=== PATIENT | male | born 1995 | race Caucasian/White ===

== ENCOUNTER → 2023-11-09 13:44 | Outpatient (REF) | payer OTHER, SELFPAY ==
[2023-11-16 04:08] LABS: HPV Genotype 16 Not Detected; HPV Genotype 18 Not Detected; HPV, High Risk Not Detected; HPV, High Risk Source Anal
== END ==
LOC: CLAB 13:44
PROVIDERS: ATTENDING PHYSICIAN Surgery
DX: K60.2 Anal fissure, unspecified (principal); Z72.51 High risk heterosexual behavior
CPT/HCPCS: 87624; 88112

== ENCOUNTER 2023-12-20 02:18 | Inpatient (IN) | payer OTHER, SELFPAY ==
[2023-12-19 23:12] VITALS: BP 122/90
[2023-12-19 23:19] VITALS: BP 122/90
[2023-12-19 23:27] VITALS: BMI 26.6
[2023-12-19 23:30] VITALS: BP 127/80
[2023-12-20] VITALS (10 sets, daily range): BP systolic 102–120; BP diastolic 57–73
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
[2023-12-20 00:39] LABS: Erythrocyte Sed Rate 51 mm/hour (0-20)
[2023-12-20 00:42] LABS: ALT (SGPT) 15 U/L (0-50); AST (SGOT) 19 U/L (17-59); Albumin 3.9 g/dl (3.5-5.0); Alkaline Phosphatase 142 U/L (38-126); Blood Urea Nitrogen 14 mg/dl (9-20); Calcium 9.1 mg/dl (8.4-10.2); Carbon Dioxide 28 mmol/L (22-30); Chloride 104 mmol/L (98-107); Estimated Creatinine Clearance > 125 ml/min; Glucose 76 mg/dl (70-99); Potassium 3.6 mmol/L (3.5-5.1); Sodium 136 mmol/L (135-145); Total Bilirubin 0.2 mg/dl (0.2-1.3); Total Protein 7.2 g/dl (6.3-8.2); eGFR > 60.00
[2023-12-20 00:49] LABS: % Basophils 0.6 % (0-2); % Eosinophils 6.6 % (0-6); % Immature Granulocytes 0.9 % (0-0.5); % Lymphocytes 35.3 % (20.5-51.1); % Monocytes 8.5 % (1.7-9.3); % Neutrophils 48.1 % (42.2-75.2); Absolute Basophils 0.1 10^3/uL (0-0.2); Absolute Eosinophils 0.6 10^3/uL (0-0.7); Absolute Immature Granulocytes 0.1 10^3/uL (0-0.05); Absolute Monocytes 0.7 10^3/uL (0.1-0.6); Absolute Neutrophils 4.1 10^3/uL (1.4-6.5); Hematocrit 29.4 % (39.0-52.0); Mean Corp Hgb Conc. 30.6 g/dL (33.0-37.0); Mean Platelet Volume 9.5 fL (7.4-10.4); Nucleated Red Blood Cells % 0 % (-); Platelet Count 511 10^3/uL (130-400); Red Blood Cell Count 3.92 10^6/uL (4.70-6.10); Red Cell Dist. Width 16.4 % (11.5-14.5); White Blood Cell Count 8.5 10^3/uL (4.8-10.8)
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
[2023-12-20] MEDS: ZOSYN 50 IV ×4 (01:33→20:42)
[2023-12-20 02:12] LABS: Lactic Acid 1.6 mmol/L (0.7-2.0)
[2023-12-20 03:59] LABS: Urine Albumin Negative (Neg - Trace); Urine Bilirubin Negative (Negative); Urine Character Clear (Clear); Urine Color Yellow; Urine Glucose Negative (Negative); Urine Ketone Negative (Negative); Urine Leukocyte Negative (Negative); Urine Nitrite Negative (Negative); Urine Occult Blood Negative (Negative); Urine Specific Gravity 1.015 (<1.030); Urine Urobilinogen Negative (Neg - 1+)
[2023-12-20 04:32] LABS: Amphetamines Negative (Negative); Barbiturates Negative (Negative); Benzodiazepines Negative (Negative); Buprenorphine Negative (Negative); Cocaine Negative (Negative); Marijuana Positive (Negative); Methadone Negative (Negative); Methamphetamines Negative (Negative); Opiates Positive (Negative); Phencyclidine Negative (Negative); Tricyclic Antidepressants Negative (Negative)
[2023-12-20 05:09] LABS: Fentanyl, Urine Positive (Negative)
--- NOTE | 2023-12-20 07:09 | PTCARENOTE ---
came onto 1:1 at 0645, pt allowed me to take morning vitals. I told the pt ill help order breakfast/lunch/dinner, pt shook their head and said 'okay, thank you'. call canales is in reach, will continue to monitor.
[2023-12-20] MEDS: LEXAPRO 10 MG PO ×2 (07:53→20:42)
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
--- NOTE | 2023-12-20 09:30 | WOUNDNOTE ---
Kymberly SUMNER (LOWER)
--- NOTE | 2023-12-20 09:44 | WOUNDNOTE ---
R 2ND TOE TIP
--- NOTE | 2023-12-20 09:44 | WOUNDNOTE ---
RLE/HEEL (POSTERIOR)
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
[2023-12-20 10:55] LABS: Iron 30 ug/dl (49-181)
[2023-12-20 11:04] LABS: Percent Saturation 7 % (20-50); Total Iron Binding Capacity 397 ug/dl (261-462)
[2023-12-20] MEDS: NICODERM TRANSDERMAL 14 MG TRANSDERM (11:21)
[2023-12-20 11:41] LABS: Ferritin 11.9 ng/ml (17.9-464.0)
[2023-12-20 12:12] LABS: Folate 3.9 ng/ml (2.76-20); Vitamin B12 187 pg/ml (239-931)
--- NOTE | 2023-12-20 13:03 | PTCARENOTE ---
pt arrived from the ED as a hold to 3w, pt arrived in a hospital bed on room air and medsurg, call canales is in reach will continue to monitor.
--- NOTE | 2023-12-20 13:06 | PTCARENOTE ---
1248 Pt received from ED.
--- NOTE | 2023-12-20 13:57 | PTCARENOTE ---
Pt took off his wound care and started to squeeze out fluid from his leg while saying 'it hurts', 'I want pain meds', and 'I want to leave'. Pt stop squeezing fluid from his leg calming him down, RN was notified. RN and I wrap up his wounds on his
lower right leg, while explaining to the pt why it is important to keep his wounds covered, pt was apologetic and understood. Pt is calm with call canales in reach, Will continue to monitor.
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
--- NOTE | 2023-12-20 15:37 | CM ---
Reviewed chart, Sent 302 paperwork to on license of [facility] in preparation for 303 hearing tomorrow. Provided patient's rights to him uner 302 and he expressed understanding. Will await hearing time.
Plan: Case management will continue to follow and assist with discharge planning. 303 hearing set for tomorrow.
[2023-12-20] MEDS: LOVENOX 40 MG SC (17:27)
[2023-12-20] MEDS: FLUSH (NSS) 2 FLUSH IV (20:42)
[2023-12-20] MEDS: ROXICODONE 5 MG PO (21:57)
[2023-12-20] MEDS: CATAPRES 0.100000000000000006 MG PO (21:57)
[2023-12-21] MEDS: FLUSH (NSS) 2 FLUSH IV (02:06)
[2023-12-21] MEDS: ZOSYN 50 IV ×2 (02:06→08:36)
[2023-12-21 07:00] VITALS: BP 102/53
[2023-12-21] MEDS: TYLENOL 650 MG PO (08:33)
[2023-12-21] MEDS: LEXAPRO 10 MG PO ×2 (08:34→21:36)
[2023-12-21] MEDS: NICODERM TRANSDERMAL 14 MG TRANSDERM (08:35)
--- NOTE | 2023-12-21 08:40 | CM ---
Placed a call to patient's mother to update that hearing time will be at 9:30am. She stated that she will meet in family room at 9:15. TT Dr. Cuello to update regarding time.
Plan: Case management will continue to follow and assist with discharge planning. 303 hearing at 9:30.
[2023-12-21 09:24] LABS: Hematocrit 27.6 % (39.0-52.0); Hemoglobin 8.1 g/dL (13.0-18.0); Mean Corp Hgb Conc. 29.3 g/dL (33.0-37.0); Mean Corpuscular Hgb 22.8 pg (27.0-31.0); Mean Corpuscular Volume 77.7 fL (80.0-94.0); Mean Platelet Volume 9.4 fL (7.4-10.4); Platelet Count 448 10^3/uL (130-400); Red Blood Cell Count 3.55 10^6/uL (4.70-6.10); Red Cell Dist. Width 16.6 % (11.5-14.5); White Blood Cell Count 6.9 10^3/uL (4.8-10.8)
[2023-12-21 09:40] LABS: Blood Urea Nitrogen 17 mg/dl (9-20); Calcium 9.2 mg/dl (8.4-10.2); Carbon Dioxide 29 mmol/L (22-30); Chloride 103 mmol/L (98-107); Estimated Creatinine Clearance > 125 ml/min; Glucose 124 mg/dl (70-99); Magnesium 1.9 mg/dl (1.6-2.3); Potassium 4.2 mmol/L (3.5-5.1); Sodium 139 mmol/L (135-145); eGFR > 60.00
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
[2023-12-21] MEDS: ROXICODONE 5 MG PO ×2 (11:24→17:03)
--- NOTE | 2023-12-21 11:34 | CM ---
Reviewed chart, 303 hearing complete and upheld. 303 on chart. Act 77 faxed to [facility].
Plan: Case management will continue to follow and assist with discharge planning. Psych placement when patient is medically stable.
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
[2023-12-21] MEDS: NON-FORMULARY ITEM 1.5 MG PO (12:23)
--- NOTE | 2023-12-21 13:14 | W.PN.ID1 ---
Date of Service
Date of Service: December 21, 2023
Today's Communication
CT of the R LE to assess for fluid collections
start cefazolin; stop zosyn
Assessment / Plan
Surgical Site Infection - RLE
Osteomyelitis - appears chronic
H/o S lugdunensis bacteremia here and OR culture previous with S lugdunesis as well by report
- await records
- blood cultures x2 in progress; note previous culture from blood with s lugdunensis
- initial wound culture - gram stain negative; repeat in progress
- CT to assess for fluid collections
- start cefazolin - tentatively plan 6 weeks of IV therapy followed by suppression
- follow clinically
Chief Complaint
-: Other (probable osteomyelitis)
Subjective / Review of Systems
afebrile
bp stable
without leukocytosis
cr stable
wound cultures x2 in progress
extensive picking of skin reported by psychiatrist Dr Cuello through the course of the hearing
Vital Signs / Physical Exam
Vital Signs
Vital Signs
Temp Pulse Resp BP Pulse Ox
98.1 F 82 18 102/53 96
12/21/23 07:00 12/21/23 07:00 12/21/23 07:00 12/21/23 07:00 12/21/23 12:28
Physical Exam
Constitutional: No Acute Distress
Cardiovascular: Regular Rate and S1/S2; Negative Murmur or Rub
Pulmonary: Clear and Symmetric; Negative Wheezes or Rales
Gastrointestinal: Soft, Non Tender, Non Distended and Normal Bowel Sounds
Skin: Warm and Dry; Negative Rash or Jaundice
Wound: Other (fistula clean, no erythema, warmth or purulent drainage; dressing in place on my arrival)
Objective Data
Lab Data
Lab Results
12/21/23 08:51
12/21/23 08:51
ESR 51 mm/hour (0-20) H 12/20/23 00:17
Estimated Creat Clear > 125 ml/min 12/21/23 08:51
Lactic Acid 1.6 mmol/L (0.7-2.0) 12/20/23 00:17
Lactic Acid Cancelled 12/20/23 00:17
Total Bilirubin 0.2 mg/dl (0.2-1.3) 12/20/23 00:17
AST 19 U/L (17-59) 12/20/23 00:17
ALT 15 U/L (0-50) 12/20/23 00:17
Alkaline Phosphatase 142 U/L (38-126) H 12/20/23 00:17
C-Reactive Protein 22.70 mg/L (0.0-10.00) H 12/20/23 00:17
Most recent labs reviewed.
Micro Results:
12/20/23 16:18 Wound Culture - Preliminary
Tibia Gram Stain - Preliminary
12/20/23 11:39 Wound Culture - Preliminary
Leg - Right Gram Stain - Preliminary
12/20/23 01:25 Blood Culture - Preliminary
Blood/Venous No Growth in 24 hours- Final report to follow
12/20/23 00:17 Blood Culture - Preliminary
Blood/Venous No Growth in 24 hours- Final report to follow
12/20/23 08:37 MRSA Screen - Pending
Nose
[2023-12-21] MEDS: FERRLECIT 110 MG IV (13:48)
[2023-12-21] MEDS: HYDROPHOR 1 APPLIC TOPICAL (13:49)
[2023-12-21] MEDS: ANCEF 10 IV ×2 (13:49→21:36)
[2023-12-21] MEDS: NICORETTE 4 MG PO ×2 (13:58→19:21)
[2023-12-21] MEDS: LYRICA 150 MG PO ×2 (14:28→21:36)
[2023-12-21 15:00] VITALS: BP 134/80
[2023-12-21] MEDS: LOVENOX SC ×2 (17:03→17:10)
[2023-12-21] MEDS: CATAPRES 0.100000000000000006 MG PO (21:36)
[2023-12-21] MEDS: MELATONIN 10 MG PO (21:36)
[2023-12-22] MEDS: ANCEF 10 IV (05:37)
[2023-12-22 06:19] LABS: Hematocrit 25.7 % (39.0-52.0); Hemoglobin 7.8 g/dL (13.0-18.0); Mean Corp Hgb Conc. 30.4 g/dL (33.0-37.0); Mean Corpuscular Hgb 22.6 pg (27.0-31.0); Mean Corpuscular Volume 74.5 fL (80.0-94.0); Mean Platelet Volume 9.1 fL (7.4-10.4); Platelet Count 430 10^3/uL (130-400); Red Blood Cell Count 3.45 10^6/uL (4.70-6.10); Red Cell Dist. Width 16.7 % (11.5-14.5); White Blood Cell Count 8.6 10^3/uL (4.8-10.8)
[2023-12-22 06:48] LABS: Blood Urea Nitrogen 16 mg/dl (9-20); Calcium 9.2 mg/dl (8.4-10.2); Carbon Dioxide 26 mmol/L (22-30); Chloride 107 mmol/L (98-107); Estimated Creatinine Clearance > 125 ml/min; Glucose 96 mg/dl (70-99); Potassium 4.1 mmol/L (3.5-5.1); Sodium 141 mmol/L (135-145); eGFR > 60.00
[2023-12-22 07:30] VITALS: BP 128/78
[2023-12-22] MEDS: NICODERM TRANSDERMAL 14 MG TRANSDERM (08:48)
[2023-12-22] MEDS: LYRICA 150 MG PO ×2 (08:50→20:55)
[2023-12-22] MEDS: LEXAPRO 10 MG PO ×2 (08:50→20:55)
[2023-12-22] MEDS: NON-FORMULARY ITEM 1.5 MG PO (08:50)
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
[2023-12-22 12:30] VITALS: BP 117/69; PULSE 79; O2SAT 97
--- NOTE | 2023-12-22 13:34 | W.PN.UPDATE ---
Update Note
Progress Note Update
patient was using old fentanyl patch at home given severity of pain. Discussed plan with Dr. Gaona. will continue given good effect and need to control pain to improve mobility. it is reordered.
--- NOTE | 2023-12-22 14:00 | PTCARENOTE ---
Patient found with 25mcg/hr fetanyl on patient's L arm. Fetanyl patch was not ordered, and was not listed in patient's home medication list. Pharmacy was called to verify prescriptions, Assigned MD was updated verbally that a patch was found,
asked RN to look for prescription in chart. Pharmacy searched patient's name in PDMP. Patient was not found in PDMP for fetanyl prescription per pharmacist. Order placed by pharmacist to remove Fetanyl patch. Fetanyl patch was removed and wasted
with two RN's, notified that a prescription was not found for fetanyl patch. MD responded that she will clarify with patient's mother. Shortly after removal of patch, the patient began screaming at RN stating 'What are you doing?, don't take my
fetanyl, they don't give me that here'. When patient was asked where the Fetanyl patch came from by two RN's at bedside, patient responded with 'my mom gives me it in secret'. Patient escalated in screaming and lunging forward while sitting up in
bed with 1:1 present, patient continued making statements such as 'Get me my Fetanyl you bitch', 'you just stole my fetanyl'. [facility] was called, notified of patient's behaviors. Security, RN processing supervisor, charge nurse, three PCT's and two
floor RN's outside of patient's room. Patient's mother came to visit, asked what was 'going on', Patient's mother updated of patient behavior and that there was a found Fetanyl patch. Patient's mother proceeded to introduce herself as '
Jimenez', 'the patient's physician', and stated 'he got it at home' 'I gave him the patch, I prescribed the patch to him'. Mother updated that a prescription was not found in PDMP. Dr. Meza called patient's mother at this time, patient's mother
excused herself to the nursing station to take the phone call. Patient's mother returned stating she spoke to , and she gave patient an 'old Fetanyl patch from 2020 they had at home'. Mother informed there was a di munoz called due to
aggressive behavior after patch removal. placed order for Fetanyl patch for pain control.
--- NOTE | 2023-12-22 14:36 | PHA.VAN.IN ---
Assessment
- Assessment
Renal Function: Appears similar to baseline
- Previous Dosing Experience
Previous Regimen: 1gm q8h
Date of Regimen: 03/2023
Provided Trough of: unknown
Provided AUC of: unknown
Patient's SCR is: Similar to previous dosing experience
Patient's weight is: Similar to previous dosing experience
AUC Dosing Plan
- Dosing Variables
Dosing Weight (kg): 79.4
Dosing CrCl (ml/min): 125
Vd coefficient (L/kg): 0.7
- Empiric Dosing
Initial / Loading Dose: 1000mg
Maintenance Regimen: 1000mg q8h
Estimated AUC (mcg*h/mL): 526
Estimated Peak (mcg*h/mL): 31.1
Estimated Trough (mcg/ml): 14.6
Estimated Half Life (H): 6.4
- Monitoring
No levels ordered at this time: consider at steady state
Pharmacokinetics Vancomycin I
- -
Patient Age: 28
Patient Sex: Male
Vancomycin Day #: 1
Indication: Skin And Soft Tissue
Requesting Provider: Clint
Height / Weight:
Height 5 ft 10 in
Actual Weight 79.4 kg
IBW in k
- Vital Signs / Lab Results
Temp Pulse Resp BP Pulse Ox
98.1 F 77 16 128/78 100
12/22/23 07:30 12/22/23 07:30 12/22/23 07:30 12/22/23 07:30 12/21/23 21:00
Lab Results - Hematology
12/20/23 12/21/23 12/22/23
00:17 08:51 06:04
WBC 8.5 6.9 8.6
Lab Results - Chemistry
12/20/23 12/21/23 12/22/23
00:17 08:51 06:04
BUN 14 17 16
Creatinine 0.7 0.7 0.7
Estimated Creat Clear > 125 > 125 > 125
Albumin 3.9
12/20/23 12/20/23
00:17 00:17
Lactic Acid 1.6 Cancelled
Lab Results - Urine
12/20/23
03:46
Urine Nitrite (Reflex) Negative
Leukocyte Esterase Rfl Negative
Microbiology Results
12/20/23 11:39 Wound Culture - Preliminary
Leg - Right Enterococcus species
Gram Stain - Preliminary
12/20/23 16:18 Wound Culture - Preliminary
Tibia Gram Stain - Preliminary
12/20/23 01:25 Blood Culture - Preliminary
Blood/Venous No Growth in 48 hours- Final report to follow
12/20/23 00:17 Blood Culture - Preliminary
Blood/Venous No Growth in 48 hours- Final report to follow
12/20/23 08:37 MRSA Screen - Final
Nose No Methicillin Resistant Staphylococcus aureus isolated.
[2023-12-22] MEDS: ANCEF IV (15:35)
[2023-12-22] MEDS: DURAGESIC 25 MCG/HR PATCH 1 PATCH TRANSDERM (15:42)
[2023-12-22] MEDS: FERRLECIT IV (15:46)
[2023-12-22] MEDS: VANCOCIN 200 IV (16:03)
--- NOTE | 2023-12-22 16:12 | W.PN.ID1 ---
Date of Service
Date of Service: December 22, 2023
Today's Communication
switch to vancomycin, continue to follow cultures
await ct
Assessment / Plan
Surgical Site Infection - RLE
Osteomyelitis - appears chronic
H/o S lugdunensis bacteremia here and OR culture previous with S lugdunesis as well by report
- blood cultures x2 in progress; note previous culture from blood with s lugdunensis
- wound culture with enterococcus
- switched to vancomycin. Narrow spectrum therapy preferable if possible given that patient will likely require suppression, however if there are other copathogens that may not be feasible
- await CT to assess for fluid collections
- start cefazolin - tentatively plan 6 weeks of IV therapy followed by suppression
- follow clinically
Chief Complaint
-: Other (probable osteomyelitis)
Subjective / Review of Systems
afebrile
bp stable
without leukocytosis
cr stable
wound culture also with enterococcus
code purple earlier today - patient upset about fentanyl patch - see nursing notes
Vital Signs / Physical Exam
Vital Signs
Vital Signs
Temp Pulse Resp BP Pulse Ox
98.1 F 77 16 128/78 100
12/22/23 07:30 12/22/23 07:30 12/22/23 07:30 12/22/23 07:30 12/21/23 21:00
Physical Exam
Constitutional: No Acute Distress
Cardiovascular: Regular Rate and S1/S2; Negative Murmur or Rub
Pulmonary: Clear and Symmetric; Negative Wheezes or Rales
Gastrointestinal: Soft, Non Tender, Non Distended and Normal Bowel Sounds
Extremities: Other (surgical site unchanged - no surrounding eythema, warmth or tenderness, minimal serosanguinous drainage)
Skin: Warm and Dry; Negative Rash or Jaundice
Objective Data
Lab Data
Lab Results
12/22/23 06:04
12/22/23 06:04
ESR 51 mm/hour (0-20) H 12/20/23 00:17
Estimated Creat Clear > 125 ml/min 12/22/23 06:04
Lactic Acid 1.6 mmol/L (0.7-2.0) 12/20/23 00:17
Lactic Acid Cancelled 12/20/23 00:17
Total Bilirubin 0.2 mg/dl (0.2-1.3) 12/20/23 00:17
AST 19 U/L (17-59) 12/20/23 00:17
ALT 15 U/L (0-50) 12/20/23 00:17
Alkaline Phosphatase 142 U/L (38-126) H 12/20/23 00:17
C-Reactive Protein 22.70 mg/L (0.0-10.00) H 12/20/23 00:17
Most recent labs reviewed.
Micro Results:
12/20/23 11:39 Wound Culture - Preliminary
Leg - Right Enterococcus species
Gram Stain - Preliminary
12/20/23 16:18 Wound Culture - Preliminary
Tibia Gram Stain - Preliminary
12/20/23 01:25 Blood Culture - Preliminary
Blood/Venous No Growth in 48 hours- Final report to follow
12/20/23 00:17 Blood Culture - Preliminary
Blood/Venous No Growth in 48 hours- Final report to follow
12/20/23 08:37 MRSA Screen - Final
Nose No Methicillin Resistant Staphylococcus aureus isolated.
[2023-12-22] MEDS: NICORETTE 4 MG PO ×2 (16:38→21:04)
[2023-12-22] MEDS: ROXICODONE 5 MG PO ×2 (16:38→21:05)
[2023-12-22] MEDS: HALDOL 5 MG PO (18:03)
[2023-12-22] MEDS: BENADRYL 50 MG PO (18:10)
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
[2023-12-22] MEDS: LOVENOX SC (18:52)
[2023-12-22] MEDS: MELATONIN 10 MG PO (20:55)
[2023-12-22] MEDS: DEPAKENE 500 MG PO (20:55)
[2023-12-22] MEDS: CATAPRES 0.100000000000000006 MG PO (20:58)
--- NOTE | 2023-12-22 22:30 | PTCARENOTE ---
Patient repeatedly requesting to have right second toe 'cleaned up' and requesting to have the toenail clipped as he states he has to cut the toenail every other day. Upon assessment of right second toe, small scabbing noted to tip of toe, no open
areas noted. Patient requesting to have 'pain cream applied' to the toe for comfort -- no orders present at this time. At this time, patient is refusing to have wound care performed to right leg/heel and states that it was done during the day and
wishes to be left alone. Call canales is within reach, will monitor.
[2023-12-23] MEDS: VANCOCIN 200 IV ×3 (01:06→14:38)
[2023-12-23] MEDS: KLONOPIN 0.5 MG PO (03:38)
[2023-12-23] MEDS: NICODERM TRANSDERMAL 14 MG TRANSDERM (08:27)
[2023-12-23] MEDS: DEPAKENE 250 MG PO (08:28)
[2023-12-23] MEDS: LYRICA 150 MG PO ×2 (08:28→20:57)
[2023-12-23] MEDS: LEXAPRO 10 MG PO ×2 (08:28→20:56)
[2023-12-23] MEDS: NON-FORMULARY ITEM 1.5 MG PO (08:29)
[2023-12-23] MEDS: NICORETTE 4 MG PO ×2 (08:32→18:38)
--- NOTE | 2023-12-23 08:33 | PHA.VAN.FU ---
Vancomycin Assessment / Plan
- Assessment
Renal Function: Stable
WBC's are: WNL
In the past 24 hrs, patient has been: Afebrile
- Dosing Plan
Continue: 1000MG Q8H
ADJUSTED Q8 TIMES, MISTAKENLY HAD ON STND Q8 TIMES CHANGED TO Q8H 0600,1400,2200
- Monitoring Plan
Peak Level: 12/23 0030
Trough Level: 12/23 0530
- Follow Up
Pharmacy will continue to follow.
Vancomycin Follow UP
- -
Patient Age: 28
Patient Sex: Male
Vancomycin Day #: 2
Indication: Skin And Soft Tissue
Requesting Provider: Clint
Height / Weight:
Height 5 ft 10 in
Actual Weight 79.4 kg
IBW in k
- Vital Signs / Lab Results
Temp Pulse Resp BP Pulse Ox
98.1 F 77 16 128/78 97
12/22/23 07:30 12/22/23 07:30 12/22/23 07:30 12/22/23 07:30 12/22/23 19:45
Lab Results - Hematology
12/21/23 12/22/23
08:51 06:04
WBC 6.9 8.6
Lab Results - Chemistry
12/21/23 12/22/23
08:51 06:04
BUN 17 16
Creatinine 0.7 0.7
Estimated Creat Clear > 125 > 125
Microbiology Results
12/20/23 01:25 Blood Culture - Preliminary
Blood/Venous No Growth in 72 hours- Final report to follow
12/20/23 00:17 Blood Culture - Preliminary
Blood/Venous No Growth in 72 hours- Final report to follow
12/20/23 11:39 Wound Culture - Preliminary
Leg - Right Enterococcus species
Gram Stain - Preliminary
12/20/23 16:18 Wound Culture - Preliminary
Tibia Gram Stain - Preliminary
12/20/23 08:37 MRSA Screen - Final
Nose No Methicillin Resistant Staphylococcus aureus isolated.
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
[2023-12-23] MEDS: ROXICODONE 5 MG PO ×2 (09:53→14:45)
[2023-12-23] MEDS: NICODERM TRANSDERMAL 21 MG TRANSDERM (09:53)
[2023-12-23] MEDS: HYDROPHOR 1 APPLIC TOPICAL (09:53)
[2023-12-23] MEDS: FERRLECIT IV (13:06)
--- NOTE | 2023-12-23 13:16 | W.PN.ID1 ---
Date of Service
Date of Service: December 23, 2023
Assessment / Plan
Surgical Site Infection - RLE
Osteomyelitis - appears chronic
H/o S lugdunensis bacteremia here and OR culture previous with S lugdunesis as well by report
- blood cultures x2 in progress; note previous culture from blood with s lugdunensis
- wound culture with enterococcus
- switched to vancomycin. Narrow spectrum therapy preferable if possible given that patient will likely require suppression, however if there are other copathogens that may not be feasible
- await CT to assess for fluid collections
- start cefazolin - tentatively plan 6 weeks of IV therapy followed by suppression
- follow clinically
Chief Complaint
-: Other (probable osteomyelitis)
Vital Signs / Physical Exam
Vital Signs
Vital Signs
Temp Pulse Resp BP Pulse Ox
98.1 F 77 16 128/78 97
12/22/23 07:30 12/22/23 07:30 12/22/23 07:30 12/22/23 07:30 12/22/23 19:45
Objective Data
Lab Data
Lab Results
12/22/23 06:04
12/22/23 06:04
ESR 51 mm/hour (0-20) H 12/20/23 00:17
Estimated Creat Clear > 125 ml/min 12/22/23 06:04
Lactic Acid 1.6 mmol/L (0.7-2.0) 12/20/23 00:17
Lactic Acid Cancelled 12/20/23 00:17
Total Bilirubin 0.2 mg/dl (0.2-1.3) 12/20/23 00:17
AST 19 U/L (17-59) 12/20/23 00:17
ALT 15 U/L (0-50) 12/20/23 00:17
Alkaline Phosphatase 142 U/L (38-126) H 12/20/23 00:17
C-Reactive Protein 22.70 mg/L (0.0-10.00) H 12/20/23 00:17
Most recent labs reviewed.
Micro Results:
12/20/23 16:18 Wound Culture - Final
Tibia Gram Stain - Final
12/20/23 11:39 Wound Culture - Final
Leg - Right Enterococcus faecalis
Gram Stain - Final
12/20/23 01:25 Blood Culture - Preliminary
Blood/Venous No Growth in 72 hours- Final report to follow
12/20/23 00:17 Blood Culture - Preliminary
Blood/Venous No Growth in 72 hours- Final report to follow
12/20/23 08:37 MRSA Screen - Final
Nose No Methicillin Resistant Staphylococcus aureus isolated.
[2023-12-23 15:00] VITALS: BP 102/57
[2023-12-23] MEDS: LOVENOX SC (17:10)
--- NOTE | 2023-12-23 17:39 | PTCARENOTE ---
Pt is alert and oriented x3 today. Complains of pain in his R leg. PRN pain medicine given per NOV. Tolerates diet well. Pt is an assist x1 OOB with the walker. Pt has been mostly cooperative and calm today. No issues with behavior. Pt did allow
this RN to do his wound care. 1:1 maintained for patient safety. VSS. Call canales is within reach.
--- NOTE | 2023-12-23 18:12 | VATNOTE ---
IV in left arm removed at patient request. Patient refusing new IV at this time, and is cursing at this RN. PCN made aware that no new IV placed.
--- NOTE | 2023-12-23 19:22 | PTCARENOTE ---
RN was notified by PCT who was the 1:1 with the patient that she witnessed the patient making himself vomit in the bathroom. PCT states the patient did it 3 times. When this RN asked the patient why he did that, he said that he didn't make himself
throw up he felt sick. [facility] nurse made aware of this situation.
--- NOTE | 2023-12-23 19:26 | W.PN.UPDATE ---
Update Note
Progress Note Update
Pt seen & evaluated at bedside, mother not present today. Visible wounds onhis face from picking. Describes compulsive need to pick due to feeling like he's itchy and feeling unable to stop until feels relief (described as physical feeling of
tension with sense of relief afterward). Describes also tapping when anxious and some obsessive nature to thoughts. Pt is at times calm and cooperative, however intermittently becomes agitated and at times paranoid - will start yelling or accuse
myself or others of wantign to harm him. At one point staff came due to his complaint of IV line being itchy and wanting a new one placed, however was preoccupied with IV being placed on inside of wrist because the veing there was 'screaming to have
an IV put in...look how big it is'. Was explained why this is not a typical place for IV and offered several other options, however became agitated and angry, posturing verbally at staff and would not agree to any other placement (IV was
subsequently lewft in place).
Throughout discussion makes multiple references to not feeling safe at home, but when questioned about this says this is because his parents 'keep calling the foreign policy officer on me' or 'calling crisis on me', is unable to identify why this is done and becomes
agitated if any attempt is made to question their feelings of safety (has been aggressive to parents) or of their having concern for him. At times is noted to be paranoid, as well as some persecutory and odd delusions pertaining to events in the
past.
Attempted to discuss with him obsessional/compulsive component to his skin picking, as he did acknowledge that he feels better pain medellin now because his wounds are being cleaned and cared for. Explained that this can require higher doses of SSRI to
manage, including up to 40mg for lexapro - attempted to discuss option of increasing lexapro dose a bit as he does say it has helped him overall. He was not agreeable to this however and became angry again.
Continue current regimen, no changes today
would monitor LFTs and depakote level once closer to end dose
on 303 as of 12/20, up to 20 days
[2023-12-23] MEDS: CATAPRES 0.100000000000000006 MG PO (20:59)
[2023-12-23] MEDS: MELATONIN 10 MG PO (20:59)
[2023-12-23] MEDS: DEPAKENE 500 MG PO (20:59)
--- NOTE | 2023-12-23 21:54 | PTCARENOTE ---
Addendum entered by Kimberly Anne RN 12/23/23 22:24:
Pharmacy made aware of pt's refusal. Lab draws are ordered tonight and tomorrow AM for Vanco dosing.
Original Note:
Pt continues to refuse IV placement despite education regarding medication compliance and wound treatment. Pt verbalizes understanding, still refuses IV. Currently, pt has no IV and unable to administer IV Vancomycin. MARY Michael notified, plan
of care ongoing.
[2023-12-23] MEDS: VANCOCIN IV (22:33)
[2023-12-23 23:25] VITALS: BP 95/54
[2023-12-24] VITALS (7 sets, daily range): BP systolic 92–129; BP diastolic 44–84; PULSE 83; O2SAT 97
[2023-12-24] MEDS: ROXICODONE 5 MG PO ×4 (03:06→20:15)
[2023-12-24] MEDS: VANCOCIN IV (06:07)
[2023-12-24 06:20] LABS: Hematocrit 25.7 % (39.0-52.0); Hemoglobin 7.7 g/dL (13.0-18.0); Mean Corpuscular Hgb 22.6 pg (27.0-31.0); Mean Corpuscular Volume 75.4 fL (80.0-94.0); Mean Platelet Volume 9.2 fL (7.4-10.4); Platelet Count 436 10^3/uL (130-400); Red Blood Cell Count 3.41 10^6/uL (4.70-6.10); Red Cell Dist. Width 17.1 % (11.5-14.5); White Blood Cell Count 9.3 10^3/uL (4.8-10.8)
[2023-12-24 07:12] LABS: Blood Urea Nitrogen 11 mg/dl (9-20); Calcium 9.5 mg/dl (8.4-10.2); Carbon Dioxide 29 mmol/L (22-30); Chloride 103 mmol/L (98-107); Estimated Creatinine Clearance > 125 ml/min; Glucose 89 mg/dl (70-99); Potassium 4.2 mmol/L (3.5-5.1); Sodium 139 mmol/L (135-145); eGFR > 60.00
[2023-12-24] MEDS: DEPAKENE 250 MG PO (08:29)
[2023-12-24] MEDS: NICODERM TRANSDERMAL 21 MG TRANSDERM (08:29)
[2023-12-24] MEDS: LEXAPRO 10 MG PO ×2 (08:30→20:15)
[2023-12-24] MEDS: LYRICA 150 MG PO ×2 (08:30→20:15)
[2023-12-24] MEDS: NON-FORMULARY ITEM 1.5 MG PO (08:30)
[2023-12-24] MEDS: NICORETTE 4 MG PO ×3 (08:54→20:16)
[2023-12-24] MEDS: BENADRYL 50 MG PO ×3 (12:45→20:37)
[2023-12-24] MEDS: HALDOL 5 MG PO ×3 (12:45→20:36)
--- NOTE | 2023-12-24 13:11 | PTCARENOTE ---
Pt found yelling and screaming at a family member over the phone. Pt yelling 'come pick me up', 'you can't leave me here', 'everyone's ignoring me'. Pt complaining that his nurse hasn't been in the room all day. Patient made aware that this RN has
been in several times to administer AM meds@8:30, oxycodone 10mg @8:54, brought tissues per patient request @9:30, fresh ice water to him and administered haldol and benadryl@12:45. 1:1 maintained in room at all times.
--- NOTE | 2023-12-24 13:52 | CM ---
Addendum entered by MO Ravi 12/25/23 12:00:
Late entry-placed a return call to Amador to determine whether she is VN or what dept she is from. Amador stated that patient gets nursing PT/OT services.
Addendum entered by MO Ravi 12/24/23 16:54:
Received call (voice mail) from Amador at [facility]. She requested that she be notified of his discharge, when patient is stable for discharge.
Original Note:
Reviewed chart, both PT and OT are recommending SNF at discharge. May need to look into acute rehab as skilled may not be an option. Will discuss options when patient is closer to medically stable.
Plan: Case management will continue to follow and assist with discharge planning. Acute rehab vrs. home when cleared medically.
--- NOTE | 2023-12-24 14:09 | PHA.VAN.FU ---
Vancomycin Assessment / Plan
- Assessment
Renal Function: Stable
WBC's are: WNL
In the past 24 hrs, patient has been: Afebrile
Patient refused 12/22 22:00 and 12/23 0600 doses
- Dosing Plan
Continue: Vanc 1000mg Q8H
- Monitoring Plan
No level(s) ordered at this time: follow to see if patient consistently accepts doses
- Follow Up
Pharmacy will continue to follow.
Vancomycin Follow UP
- -
Patient Age: 28
Patient Sex: Male
Vancomycin Day #: 3
Indication: Skin And Soft Tissue
Requesting Provider: Clint
Pertinent Antimicrobial Allergies:
colistin - H/V
Height / Weight:
Height 5 ft 10 in
Actual Weight 79.4 kg
IBW in k
- Vital Signs / Lab Results
Temp Pulse Resp BP Pulse Ox
99.0 F 87 20 100/58 98
12/23/23 23:25 12/24/23 10:15 12/24/23 10:15 12/24/23 10:15 12/24/23 10:15
Lab Results - Hematology
12/22/23 12/24/23
06:04 06:03
WBC 8.6 9.3
Lab Results - Chemistry
12/22/23 12/24/23
06:04 06:03
BUN 16 11
Creatinine 0.7 0.6 L
Estimated Creat Clear > 125 > 125
Microbiology Results
12/20/23 11:39 Wound Culture - Final
Leg - Right Enterococcus faecalis
Gram Stain - Final
12/20/23 01:25 Blood Culture - Preliminary
Blood/Venous No Growth in 4 days- Final report to follow
12/20/23 00:17 Blood Culture - Preliminary
Blood/Venous No Growth in 4 days- Final report to follow
12/20/23 16:18 Wound Culture - Final
Tibia Gram Stain - Final
--- NOTE | 2023-12-24 14:27 | W.PN.UPDATE ---
Update Note
Progress Note Update
Pt seen, chart reviewed. Pt on 303 for up to 20 days of involuntary hospitalization, due to apparent psychosis/delusions and inability to care for self/ not following medical treatment for his chronic leg wound. Pt calm this morning, somewhat
slowed, answering questions, fairly cooperative. Pt states he is aware he needs IV antibiotics, although he refused IV placement. Pt states he just wants the IV in a different location, c/o his arm is injured/uncomfortable from previous IV's. Pt
shows no overt hallucinations, offers no delusions today. Pt taking Vraylar 1.5 mg QD, started 12/21/23. No EPS evident. Pt also taking Depakote started over the weekend when pt was more agitated/labile, received Haldol 5 mg x 1 for agitation. Pt
continues on outpatient meds- Lexapro, clonidine, melatonin.
Imp: Schizoaffective d/o, on 303 commitment
Rec: continue current psych meds, monitor response. Will review disposition needs when closer to being medically cleared.
will follow
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
[2023-12-24] MEDS: VANCOCIN 200 IV ×2 (14:52→22:47)
--- NOTE | 2023-12-24 15:19 | W.PN.ID1 ---
Date of Service
Date of Service: December 24, 2023
Today's Communication
continue vancomycin
patient agreed to PIV
Assessment / Plan
Surgical Site Infection - RLE
Osteomyelitis - appears chronic
H/o S lugdunensis bacteremia here and OR culture previous with S lugdunesis as well by report
- blood cultures x2 in progress; note previous culture from blood with s lugdunensis
- wound culture with enterococcus
- continue vancomycin. Narrow spectrum therapy preferable if possible given that patient will likely require suppression, however if there are other copathogens that may not be feasible
- CT did not show drainable fluid collection
- continue vancomycin - tentatively plan 6 weeks of IV therapy followed by suppression
- could eventually place a PICC line if patient is planned for discharge
- follow clinically
Chief Complaint
-: Other (probable osteomyelitis)
Subjective / Review of Systems
afebrile
bp stable
without leukocytosis
cr stable
missed yesterdays vancomycin
with discussion he has agree to replacement of PIV
Vital Signs / Physical Exam
Vital Signs
Vital Signs
Temp Pulse Resp BP Pulse Ox
99.0 F 87 20 100/58 98
12/23/23 23:25 12/24/23 10:15 12/24/23 10:15 12/24/23 10:15 12/24/23 10:15
Physical Exam
Constitutional: No Acute Distress and Chronically Ill
Cardiovascular: Regular Rate and S1/S2; Negative Murmur or Rub
Pulmonary: Clear and Symmetric; Negative Wheezes or Rales
Gastrointestinal: Soft, Non Tender, Non Distended and Normal Bowel Sounds
Extremities: Other (dressing clean, dry, intact; arms without evidence of phlebitis)
Skin: Warm and Dry; Negative Rash or Jaundice
Objective Data
Lab Data
Lab Results
12/24/23 06:03
12/24/23 06:03
ESR 51 mm/hour (0-20) H 12/20/23 00:17
Estimated Creat Clear > 125 ml/min 12/24/23 06:03
Lactic Acid 1.6 mmol/L (0.7-2.0) 12/20/23 00:17
Lactic Acid Cancelled 12/20/23 00:17
Total Bilirubin 0.2 mg/dl (0.2-1.3) 12/20/23 00:17
AST 19 U/L (17-59) 12/20/23 00:17
ALT 15 U/L (0-50) 12/20/23 00:17
Alkaline Phosphatase 142 U/L (38-126) H 12/20/23 00:17
C-Reactive Protein 22.70 mg/L (0.0-10.00) H 12/20/23 00:17
Most recent labs reviewed.
Micro Results:
12/20/23 11:39 Wound Culture - Final
Leg - Right Enterococcus faecalis
Gram Stain - Final
12/20/23 01:25 Blood Culture - Preliminary
Blood/Venous No Growth in 4 days- Final report to follow
12/20/23 00:17 Blood Culture - Preliminary
Blood/Venous No Growth in 4 days- Final report to follow
12/20/23 16:18 Wound Culture - Final
Tibia Gram Stain - Final
12/20/23 08:37 MRSA Screen - Final
Nose No Methicillin Resistant Staphylococcus aureus isolated.
Care Review
Plan reviewed with: Physician (Dr Toure - piv vs picc)
[2023-12-24] MEDS: FERRLECIT 110 MG IV (16:11)
[2023-12-24] MEDS: LOVENOX SC ×2 (16:21→16:26)
[2023-12-24] MEDS: TYLENOL 650 MG PO (18:28)
[2023-12-24] MEDS: DEPAKENE 500 MG PO (20:37)
[2023-12-24] MEDS: MELATONIN 10 MG PO (20:37)
[2023-12-24] MEDS: KLONOPIN 0.5 MG PO (20:37)
--- NOTE | 2023-12-24 21:23 | PTCARENOTE ---
During change of shift rounds, Fentanyl patch verified on pt's right upper arm with day shift RN. Pt questioned when he was receiving another Fentanyl patch because 'it works faster for him than everyone else.' Informed pt that it wasn't occurring
until tomorrow afternoon and reassured pt that he still has a patch on his body. Pt now screaming 'you guys can't even do math, you're all fucking idiots... I've had this one since Sunday, or , maybe even Sunday.' Pt hitting his bed,
yelling 'you're all bitches, give me my fucking Fentanyl.' 1:1 present in room, safe environment maintained. Pt fell asleep shortly thereafter while pt's mother visited. When mother left, pt woke up and rang the call canales asking for PRN pain
medications. At approx 2019, with another RN present, administered PRN Oxycodone, pt stating he 'is not messing around,' he 'needs another patch.' Reminded pt that he has one on and he is receiving his pain medication pill currently. Pt removed all
his clothing, screaming 'I don't even get high from Fentanyl, you guys are the ones that get high from it, I'm actually in pain.' Two RNs watched pt take PRN Oxycodone.
At approx 2034, pt rang the call canales and asked if the doctor could 'write him another order for a second patch.' Pt assured, again, that he still has a patch on. MARY Blair notified. PRN agitation medications given (benadryl and haldol) with
evening medications.
1:1 remains in room, safe environment maintained. Plan of care ongoing.
[2023-12-24] MEDS: CATAPRES PO (21:39)
[2023-12-25 00:04] VITALS: BP 90/48
[2023-12-25] MEDS: VANCOCIN 200 IV ×3 (05:54→21:02)
[2023-12-25 07:18] VITALS: BP 94/49
[2023-12-25] MEDS: DEPAKENE PO ×2 (07:31→07:39)
[2023-12-25] MEDS: NICODERM TRANSDERMAL 21 MG TRANSDERM (07:31)
[2023-12-25] MEDS: LEXAPRO 10 MG PO ×2 (07:31→19:22)
[2023-12-25] MEDS: LYRICA 150 MG PO ×2 (07:31→19:22)
[2023-12-25] MEDS: NON-FORMULARY ITEM 1.5 MG PO (07:31)
[2023-12-25 08:59] LABS: Hematocrit 26.3 % (39.0-52.0); Hemoglobin 7.8 g/dL (13.0-18.0); Mean Corp Hgb Conc. 29.7 g/dL (33.0-37.0); Mean Corpuscular Hgb 22.8 pg (27.0-31.0); Mean Corpuscular Volume 76.9 fL (80.0-94.0); Mean Platelet Volume 9.6 fL (7.4-10.4); Platelet Count 447 10^3/uL (130-400); Red Blood Cell Count 3.42 10^6/uL (4.70-6.10); Red Cell Dist. Width 17.7 % (11.5-14.5); White Blood Cell Count 9.6 10^3/uL (4.8-10.8)
--- NOTE | 2023-12-25 09:13 | PHA.VAN.FU ---
Vancomycin Assessment / Plan
- Assessment
Renal Function: Stable
WBC's are: WNL
In the past 24 hrs, patient has been: Afebrile
- Dosing Plan
Continue: Vanc 1000mg Q8H
- Monitoring Plan
Peak Level: 12/25 00:30
Trough Level: 12/26 05:30
- Follow Up
Pharmacy will continue to follow.
Vancomycin Follow UP
- -
Patient Age: 28
Patient Sex: Male
Vancomycin Day #: 4
Indication: Skin And Soft Tissue
Requesting Provider: Clint
Pertinent Antimicrobial Allergies:
colistin - H/V
Height / Weight:
Height 5 ft 10 in
Actual Weight 79.4 kg
IBW in k
- Vital Signs / Lab Results
Temp Pulse Resp BP Pulse Ox
97.9 F 72 20 94/49 98
12/25/23 07:18 12/25/23 07:18 12/25/23 07:18 12/25/23 07:18 12/25/23 07:18
Lab Results - Hematology
12/24/23 12/25/23
06:03 08:28
WBC 9.3 9.6
Lab Results - Chemistry
12/24/23
06:03
BUN 11
Creatinine 0.6 L
Estimated Creat Clear > 125
Microbiology Results
12/20/23 01:25 Blood Culture - Final
Blood/Venous No Growth - Final Report
12/20/23 00:17 Blood Culture - Final
Blood/Venous No Growth - Final Report
12/20/23 11:39 Wound Culture - Final
Leg - Right Enterococcus faecalis
Gram Stain - Final
12/20/23 16:18 Wound Culture - Final
Tibia Gram Stain - Final
[2023-12-25 09:19] LABS: Blood Urea Nitrogen 12 mg/dl (9-20); Calcium 9.3 mg/dl (8.4-10.2); Carbon Dioxide 28 mmol/L (22-30); Chloride 104 mmol/L (98-107); Estimated Creatinine Clearance > 125 ml/min; Glucose 101 mg/dl (70-99); Sodium 140 mmol/L (135-145); eGFR > 60.00
[2023-12-25] MEDS: SENOKOT-S 1 TABLET PO (09:44)
[2023-12-25] MEDS: NON-FORMULARY ITEM 1 UNIT TOPICAL ×2 (09:44→19:24)
[2023-12-25] MEDS: ROXICODONE 5 MG PO ×3 (09:56→19:23)
[2023-12-25] MEDS: NICORETTE 4 MG PO ×3 (09:56→19:31)
--- NOTE | 2023-12-25 12:04 | CM ---
Reviewed chart, spoke by TT with Psychiatry and attending who confirmed that patient will need to be in a medical setting for ongoing IV ABX and compliance concerns.
CM mine supervisor updated
Plan: Case management will continue to follow and assist with discharge planning. Patient still requiring acute level of care.
[2023-12-25] MEDS: NON-FORMULARY ITEM 1 UNIT PO (12:09)
[2023-12-25] MEDS: TYLENOL 650 MG PO ×2 (12:11→21:01)
[2023-12-25] MEDS: HALDOL 5 MG PO (13:10)
[2023-12-25] MEDS: BENADRYL 50 MG PO (13:10)
[2023-12-25 13:17] VITALS: BP 120/70
[2023-12-25] MEDS: FERRLECIT IV (13:18)
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
--- NOTE | 2023-12-25 14:21 | W.PN.UPDATE ---
Update Note
Progress Note Update
Pt seen, resting in bed, alert, calm, cooperative, has IV in place. No signs of agitation, no signs of acute depression or overt psychosis. Pt is taking new med Vraylar 1.5 mg QD since 12/20, Depakene since 12/21; denies side effects, states it is
going well so far. Pt also taking prn Haldol 5 mg. No EPS evident. Pt asking about being able to go home, aware he needs 6 weeks of IV antibiotics. Pt remains on 303 commitment due to inability to care for self/not following medical treatment
due to his mental illness.
Imp: �Schizoaffective d/o, on 303 commitment for up to 20 days effective 12/20. Pt appears to be improving on current medications
Rec:� continue current psych meds, including new Vraylar, Depakene.� Need to monitor prn Haldol dosing; ordered Cogentin prn due to higher risk of EPS on Haldol
Continue on 303 commitment, although not likely to be accepted in any psych facility on IV antibiotics.
� � � will follow
[2023-12-25] MEDS: DURAGESIC 25 MCG/HR PATCH 1 PATCH TRANSDERM (14:30)
--- NOTE | 2023-12-25 14:54 | PN.CDI ---
CDI
- -
CDI:
Physician Documentation Request
Admit Date: 12/20/23 02:18
Dear Doctor Cruzito
Patient admitted with surgical site infection with drainage RLE.
Pt carries a diagnosis of Schizophrenia and is currently under section 303 of mental health act to 20 days inpatient treatment, per hospitalist progress note.
Please provide the specificity of the schizophrenia:
- Paranoid schizophrenia
- Undifferentiated (atypical) schizophrenia
- Disorganized schizophrenia
- Residual schizophrenia
- Schizophreniform disorder
- Simple schizophrenia
- Other, please specify
Use of terms such as suspected, likely, concern for, or probable (associated with a specific diagnosis that is being evaluated, monitored, or treated as if it exists) are acceptable and can be coded in the inpatient setting, when documented at the
time of discharge.
Thank you,
Talita Ziegler RN, BSN
CDI Specialist
tiger text
Please use your independent medical judgment in providing your response.
[2023-12-25 15:04] VITALS: BP 102/52
[2023-12-25] MEDS: LOVENOX SC (15:47)
--- NOTE | 2023-12-25 16:15 | W.PN.ID1 ---
Date of Service
Date of Service: December 25, 2023
Today's Communication
- continue vancomycin - tentatively plan 6 weeks of IV therapy followed by suppression - 12/21-01/31
Assessment / Plan
Surgical Site Infection - RLE
Osteomyelitis - appears chronic
H/o S lugdunensis bacteremia here and OR culture previous with S lugdunesis as well by report
- blood cultures x2 in progress; note previous culture from blood with s lugdunensis
- wound culture with enterococcus
- continue vancomycin. Narrow spectrum therapy preferable if possible given that patient will likely require suppression, however if there are other copathogens that may not be feasible
- CT did not show drainable fluid collection
- continue vancomycin - tentatively plan 6 weeks of IV therapy followed by suppression - 12/21-01/31
- could eventually place a PICC line if patient is planned for discharge; note he is currently committed and unlikely to find placement
- follow clinically
Chief Complaint
-: Other (probable osteomyelitis)
Subjective / Review of Systems
afebrile
bp stable
without leukocytosis
cr stable
tolerating vancomycin - accepting the meds
reports hes had no issues with home IV antibiotics in the past
line clean
Vital Signs / Physical Exam
Vital Signs
Vital Signs
Temp Pulse Resp BP Pulse Ox
98.2 F 74 16 102/52 96
12/25/23 15:04 12/25/23 15:04 12/25/23 15:04 12/25/23 15:04 12/25/23 15:04
Physical Exam
Constitutional: No Acute Distress
Cardiovascular: Regular Rate and S1/S2; Negative Murmur or Rub
Pulmonary: Clear and Symmetric; Negative Wheezes or Rales
Gastrointestinal: Soft, Non Tender, Non Distended and Normal Bowel Sounds
Skin: Warm and Dry; Negative Rash or Jaundice
Objective Data
Lab Data
Lab Results
12/25/23 08:28
12/25/23 08:28
ESR 51 mm/hour (0-20) H 12/20/23 00:17
Estimated Creat Clear > 125 ml/min 12/25/23 08:28
Lactic Acid 1.6 mmol/L (0.7-2.0) 12/20/23 00:17
Lactic Acid Cancelled 12/20/23 00:17
Total Bilirubin 0.2 mg/dl (0.2-1.3) 12/20/23 00:17
AST 19 U/L (17-59) 12/20/23 00:17
ALT 15 U/L (0-50) 12/20/23 00:17
Alkaline Phosphatase 142 U/L (38-126) H 12/20/23 00:17
C-Reactive Protein 22.70 mg/L (0.0-10.00) H 12/20/23 00:17
Most recent labs reviewed.
Micro Results:
12/20/23 01:25 Blood Culture - Final
Blood/Venous No Growth - Final Report
12/20/23 00:17 Blood Culture - Final
Blood/Venous No Growth - Final Report
12/20/23 11:39 Wound Culture - Final
Leg - Right Enterococcus faecalis
Gram Stain - Final
12/20/23 16:18 Wound Culture - Final
Tibia Gram Stain - Final
12/20/23 08:37 MRSA Screen - Final
Nose No Methicillin Resistant Staphylococcus aureus isolated.
Care Review
Plan reviewed with: Physician (Dr East - duration of comitment)
[2023-12-25] MEDS: SENOKOT-S PO ×2 (19:22→19:55)
[2023-12-25] MEDS: MELATONIN 10 MG PO (21:01)
[2023-12-25] MEDS: DEPAKENE 500 MG PO (21:02)
[2023-12-25] MEDS: CATAPRES 0.100000000000000006 MG PO (21:09)
--- NOTE | 2023-12-25 21:53 | VATNOTE ---
CALLED TO ASSESS PT IV SITE IN LUE. PT C/O SORENESS. SITE APPEARS WNL. FLUSHES WELL WITH N/C OF PAIN AND HAS A GOOD BR. PT INSISTED ON HAVING A NEW IV SITE INSERTED. PT ADAMANT TO WHERE IV SITE WAS TO BE REINSERTED. NEW ACCESS ESTABLISHED
DOCUMETNED AND [place] RESUMED. ATTEMTPED TO EDUCATE PT ON THE ADMINISTRATION OF MEDICATIONS IV AND WHERE HE INSISTED IV BE PLACED LESS THAN DESIRABLE BUT TO NO AVAIL. VAT TO MONITOR.
[2023-12-25 23:07] VITALS: BP 104/59
--- NOTE | 2023-12-26 00:12 | VATNOTE ---
PT REMOVED RECENTLY INSERTED IV ACCESS. REFUSES TO ALLOW THIS RN TO INSERT A NEW IV AT THE TIME OF HIS NEXT SCHEDULED LAB DRAW DESPITE BEING EXPLAINED TO IN DETAIL THE ADVANTAGES TO HIM. PT INSISTS THAT IV BE REINSERTED AT TIME OF NEXT SCHEDULED ABX
AT 0600. PT AGREES AT THIS TIME TO LAB DRAW. PCN AWARE OF MY CONVERSATION WITH PT. HE APPEARS ANGRY AT MY REFUSAL TO SUPPLY HIM WITH NAIL CLIPPERS OR SCISSIORS.
--- NOTE | 2023-12-26 00:15 | PTCARENOTE ---
Addendum entered by Johana Ronquillo RN 12/26/23 00:55:
Patient refused blood draw ( vanco peak).
Original Note:
Patient pulled out the IV and refused to have another IV until 0600. 1:1 supervision maintained.
[2023-12-26] MEDS: NICORETTE 4 MG PO ×6 (00:39→19:34)
[2023-12-26] MEDS: ROXICODONE 5 MG PO ×4 (00:40→19:37)
--- NOTE | 2023-12-26 03:28 | DOWNTIME ---
There was a [employer] Client Educational [employer]ician Downtime on 12/26/2023 from 0100 to 12/26/2023 at 0322. Downtime documentation of patient's care, including medication administrations, has been reconciled in the electronic record per guidelines. Refer to the
patient's paper chart under the miscellaneous tab to see printed paper medication records and downtime forms.
[2023-12-26] MEDS: VANCOCIN 200 IV (06:15)
[2023-12-26 06:23] LABS: Hematocrit 26.2 % (39.0-52.0); Hemoglobin 7.8 g/dL (13.0-18.0); Mean Corp Hgb Conc. 29.8 g/dL (33.0-37.0); Mean Corpuscular Hgb 22.9 pg (27.0-31.0); Mean Corpuscular Volume 77.1 fL (80.0-94.0); Mean Platelet Volume 9.5 fL (7.4-10.4); Platelet Count 467 10^3/uL (130-400); Red Cell Dist. Width 17.8 % (11.5-14.5); White Blood Cell Count 7.7 10^3/uL (4.8-10.8)
[2023-12-26 06:33] LABS: Vancomycin Trough 15.1 ug/ml (5-20)
[2023-12-26 06:45] LABS: ALT (SGPT) 13 U/L (0-50); AST (SGOT) 18 U/L (17-59); Albumin 3.7 g/dl (3.5-5.0); Alkaline Phosphatase 113 U/L (38-126); Blood Urea Nitrogen 10 mg/dl (9-20); Calcium 9.5 mg/dl (8.4-10.2); Carbon Dioxide 25 mmol/L (22-30); Chloride 109 mmol/L (98-107); Estimated Creatinine Clearance > 125 ml/min; Glucose 88 mg/dl (70-99); Potassium 4.2 mmol/L (3.5-5.1); Sodium 138 mmol/L (135-145); Total Bilirubin 0.2 mg/dl (0.2-1.3); Total Protein 6.8 g/dl (6.3-8.2); eGFR > 60.00
[2023-12-26] MEDS: NICODERM TRANSDERMAL 21 MG TRANSDERM (08:51)
[2023-12-26] MEDS: DEPAKENE 250 MG PO (08:52)
[2023-12-26] MEDS: LEXAPRO 10 MG PO ×2 (08:52→19:34)
[2023-12-26] MEDS: LYRICA 150 MG PO ×2 (08:53→19:34)
[2023-12-26] MEDS: SENOKOT-S PO ×3 (08:53→19:35)
[2023-12-26] MEDS: NON-FORMULARY ITEM 1 UNIT PO (08:53)
[2023-12-26] MEDS: NON-FORMULARY ITEM 1 UNIT TOPICAL ×2 (08:54→19:35)
[2023-12-26] MEDS: NON-FORMULARY ITEM 1.5 MG PO (08:54)
--- NOTE | 2023-12-26 09:20 | PHA.VAN.FU ---
Vancomycin Assessment / Plan
- Assessment
Renal Function: Stable
WBC's are: WNL
In the past 24 hrs, patient has been: Afebrile
- Assessment - Trough Based Monitoring
Trough Value: 15.1
Level Today was: Appropriate
Level Comments: drawn ~9H after 5th dose at Q8H regimen
Patient has refused some vancomycin doses but consistently received 5 doses in a row at Q8H interval
Patient refused peak draw last night
- Dosing Plan
Adjust Regimen to: Vanc 1250mg Q12H starting at 1800
Anticipate patient will have additional accumulation on Q8H regimen; however, unable to calculate AUC & half-life without peak
Will trial Q12H regimen, which also may help with compliance
- Monitoring Plan
No level(s) ordered at this time: consider repeat levels in next few days
- Follow Up
Pharmacy will continue to follow.
Vancomycin Follow UP
- -
Patient Age: 28
Patient Sex: Male
Vancomycin Day #: 5
Indication: Skin And Soft Tissue
Requesting Provider: Clint
Pertinent Antimicrobial Allergies:
colistin - H/V
Height / Weight:
Height 5 ft 10 in
Actual Weight 79.4 kg
IBW in k
- Vital Signs / Lab Results
Temp Pulse Resp BP Pulse Ox
97.5 F 75 18 104/59 96
12/25/23 23:07 12/25/23 23:07 12/25/23 23:07 12/25/23 23:07 12/25/23 23:07
Lab Results - Hematology
12/24/23 12/25/23 12/26/23
06:03 08:28 05:50
WBC 9.3 9.6 7.7
Lab Results - Chemistry
12/24/23 12/25/23 12/26/23
06:03 08:28 05:50
BUN 11 12 10
Creatinine 0.6 L 0.6 L 0.6 L
Estimated Creat Clear > 125 > 125 > 125
Albumin 3.7
Microbiology Results
12/20/23 01:25 Blood Culture - Final
Blood/Venous No Growth - Final Report
12/20/23 00:17 Blood Culture - Final
Blood/Venous No Growth - Final Report
12/20/23 11:39 Wound Culture - Final
Leg - Right Enterococcus faecalis
Gram Stain - Final
Therapeutic Drug Monitoring
Vancomycin Peak Cancelled 12/26/23 00:45
Vancomycin Trough 15.1 ug/ml (5-20) 12/26/23 05:50
[2023-12-26] MEDS: TYLENOL 650 MG PO ×2 (11:44→20:58)
--- NOTE | 2023-12-26 12:00 | WOUNDNOTE ---
R 2ND TOE
--- NOTE | 2023-12-26 12:00 | WOUNDNOTE ---
R 2ND TOE
--- NOTE | 2023-12-26 12:00 | WOUNDNOTE ---
RLE (ANTERIOR)(with photo flash)
--- NOTE | 2023-12-26 12:08 | CM ---
Reviewed chart, patient is a 303, hearing was last Sunday, the 20 of January. Met with patient and his mother who was at bedside to obtain information for assessment. Patient stated that he lives with his mother and father in a two story home with
three steps to enter. He uses an electric w/c but also has a walker. He has a commode.
He is independent with his dressing and bathing as well as other ADLs and personal care. His parents drive him to his appointments and do all the shopping. They do all the fryer operator, cooking, cleaning and laundry. Patient has had VN through
[facility] and selects for mica.
Patient uses [facility] pharmacy for all of his medications in [place]. His PCP is not listed but he does see Dr. Cuello and receives services from [facility]. Psych hx in Psychiatry notes.
Patient stated that he wants to go home and that he feels he is gaining weight and does not like the food. Emotional support provided.
Plan: Case management will continue to follow and assist with discharge planning. Patient in acute care on 303. Will need to stay until he is medically cleared and not in any danger of hurting himself by picking at his healing wounds.
--- NOTE | 2023-12-26 12:17 | WOUNDNOTE ---
R 2ND TOE
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
[2023-12-26] MEDS: KLONOPIN 0.5 MG PO (13:33)
[2023-12-26 15:30] VITALS: BP 130/78
--- NOTE | 2023-12-26 16:46 | W.PN.ID1 ---
Date of Service
Date of Service: December 26, 2023
Today's Communication
- continue vancomycin- plan 6 weeks of IV therapy followed by suppression - 12/21-01/31
- could eventually place a PICC line if patient is planned for discharge; note he is currently committed and unlikely to find placement
Assessment / Plan
Surgical Site Infection - RLE
Osteomyelitis - appears chronic
H/o S lugdunensis bacteremia here and OR culture previous with S lugdunesis as well by report
- blood cultures x2 finalized negative; note previous culture from blood with s lugdunensis
- wound culture with enterococcus - amp sensitive
- continue vancomycin- plan 6 weeks of IV therapy followed by suppression - 12/21-01/31
- could eventually place a PICC line if patient is planned for discharge; note he is currently committed and unlikely to find placement
- follow clinically
Chief Complaint
-: Other (probable osteomyelitis)
Subjective / Review of Systems
afebrile
bp stable
without leukocytosis
cr stable
Vital Signs / Physical Exam
Vital Signs
Vital Signs
Temp Pulse Resp BP Pulse Ox
98.3 F 78 16 130/78 99
12/26/23 15:30 12/26/23 15:30 12/26/23 15:30 12/26/23 15:30 12/26/23 15:30
Physical Exam
Constitutional: No Acute Distress
Cardiovascular: Regular Rate and S1/S2; Negative Murmur or Rub
Pulmonary: Clear and Symmetric; Negative Wheezes or Rales
Gastrointestinal: Soft, Non Tender, Non Distended and Normal Bowel Sounds
Extremities: Other (dressing clean, dry, intact)
Skin: Warm and Dry; Negative Rash or Jaundice
Objective Data
Lab Data
Lab Results
12/26/23 05:50
12/26/23 05:50
ESR 51 mm/hour (0-20) H 12/20/23 00:17
Estimated Creat Clear > 125 ml/min 12/26/23 05:50
Lactic Acid 1.6 mmol/L (0.7-2.0) 12/20/23 00:17
Lactic Acid Cancelled 12/20/23 00:17
Total Bilirubin 0.2 mg/dl (0.2-1.3) 12/26/23 05:50
AST 18 U/L (17-59) 12/26/23 05:50
ALT 13 U/L (0-50) 12/26/23 05:50
Alkaline Phosphatase 113 U/L (38-126) 12/26/23 05:50
C-Reactive Protein 22.70 mg/L (0.0-10.00) H 12/20/23 00:17
Most recent labs reviewed.
Micro Results:
12/20/23 01:25 Blood Culture - Final
Blood/Venous No Growth - Final Report
12/20/23 00:17 Blood Culture - Final
Blood/Venous No Growth - Final Report
12/20/23 11:39 Wound Culture - Final
Leg - Right Enterococcus faecalis
Gram Stain - Final
12/20/23 16:18 Wound Culture - Final
Tibia Gram Stain - Final
12/20/23 08:37 MRSA Screen - Final
Nose No Methicillin Resistant Staphylococcus aureus isolated.
[2023-12-26] MEDS: VANCOCIN 275 MG IV (17:14)
[2023-12-26] MEDS: LOVENOX SC (17:15)
[2023-12-26] MEDS: CATAPRES 0.100000000000000006 MG PO (20:58)
[2023-12-26] MEDS: MELATONIN 10 MG PO (20:58)
[2023-12-26] MEDS: DEPAKENE 500 MG PO (20:59)
[2023-12-26 23:25] VITALS: BP 92/53
[2023-12-27] MEDS: ROXICODONE 5 MG PO ×4 (00:54→20:35)
[2023-12-27 00:55] VITALS: BP 103/62
--- NOTE | 2023-12-27 01:19 | PTCARENOTE ---
Tech called this RN into pt's room because he locked himself in the bathroom. Bathroom abreu used to unlock door. This RN educated pt on why we keep the bathroom door open. Pt agreed to keep door open. Pt yelling that his wound care needs to be done.
Foams c/d/i w/o drainage. This RN stated to pt that wound care is to be done daily and was last done at 1200 12/25. Pt pulled off foams and demanded wound care be redone. Wound care done w/ gauze and kerlix, pt refused foams. PRN Kelsea given (see
mar). 1:1 remains in room, safe environment maintained. Continuing plan of care.
[2023-12-27] MEDS: NICORETTE 4 MG PO ×4 (04:04→18:32)
[2023-12-27] MEDS: KLONOPIN 0.5 MG PO ×2 (04:04→13:51)
[2023-12-27] MEDS: VANCOCIN 275 MG IV ×2 (06:02→17:02)
[2023-12-27 06:23] LABS: Hematocrit 26.7 % (39.0-52.0); Hemoglobin 8.1 g/dL (13.0-18.0); Mean Corp Hgb Conc. 30.3 g/dL (33.0-37.0); Mean Corpuscular Hgb 23.2 pg (27.0-31.0); Mean Corpuscular Volume 76.5 fL (80.0-94.0); Mean Platelet Volume 9.4 fL (7.4-10.4); Platelet Count 427 10^3/uL (130-400); Red Blood Cell Count 3.49 10^6/uL (4.70-6.10); Red Cell Dist. Width 18.5 % (11.5-14.5); White Blood Cell Count 7.9 10^3/uL (4.8-10.8)
[2023-12-27 06:31] LABS: Depakane 24.5 ug/ml (50.0-120.0)
[2023-12-27 06:54] LABS: ALT (SGPT) 12 U/L (0-50); AST (SGOT) 14 U/L (17-59); Albumin 3.7 g/dl (3.5-5.0); Alkaline Phosphatase 112 U/L (38-126); Blood Urea Nitrogen 9 mg/dl (9-20); Calcium 9.5 mg/dl (8.4-10.2); Carbon Dioxide 27 mmol/L (22-30); Chloride 103 mmol/L (98-107); Estimated Creatinine Clearance > 125 ml/min; Glucose 91 mg/dl (70-99); Potassium 4.3 mmol/L (3.5-5.1); Sodium 138 mmol/L (135-145); Total Bilirubin 0.1 mg/dl (0.2-1.3); Total Protein 6.8 g/dl (6.3-8.2); eGFR > 60.00
[2023-12-27 07:00] VITALS: BP 87/41
--- NOTE | 2023-12-27 08:30 | WOUNDNOTE ---
[facility] RN note: late yesterday called and left a message at [place] for Dr. Schuyler Jackson's office requesting a return call to confirm that patient is WBAT RLE. Received a call back this morning from Dr. Jackson's triage nurse Andria who did confirm
patient is WBAT RLE.
[2023-12-27] MEDS: LEXAPRO 10 MG PO ×2 (08:40→19:43)
[2023-12-27] MEDS: LYRICA 150 MG PO ×2 (08:40→19:43)
[2023-12-27] MEDS: NICODERM TRANSDERMAL 21 MG TRANSDERM (08:40)
[2023-12-27] MEDS: DEPAKENE 250 MG PO (08:40)
[2023-12-27] MEDS: NON-FORMULARY ITEM 1.5 MG PO (08:41)
[2023-12-27] MEDS: SENOKOT-S PO ×2 (08:41→21:51)
[2023-12-27] MEDS: NON-FORMULARY ITEM 2 UNIT PO (08:42)
[2023-12-27] MEDS: NON-FORMULARY ITEM 1 UNIT TOPICAL ×2 (08:42→19:40)
--- NOTE | 2023-12-27 09:01 | PHA.VAN.FU ---
Vancomycin Assessment / Plan
- Assessment
Renal Function: Stable
WBC's are: WNL
In the past 24 hrs, patient has been: Afebrile
- Dosing Plan
Continue: Vanc 1250mg Q12H
- Monitoring Plan
Peak Level: 12/26 21:00
Trough Level: 12/27 05:30
Monitoring Comments: if remains admitted, will obtain levels after 3rd dose of new regimen
previously patient refused peak - will re-attempt obtaining peak so can calculate half-life and patient-specific PK to better ensure optimal dosing and safety
- Follow Up
Pharmacy will continue to follow.
Vancomycin Follow UP
- -
Patient Age: 28
Patient Sex: Male
Vancomycin Day #: 6
Indication: Skin And Soft Tissue
Requesting Provider: Clint
Pertinent Antimicrobial Allergies:
colistin - H/V
Height / Weight:
Height 5 ft 10 in
Actual Weight 79.4 kg
IBW in k
- Vital Signs / Lab Results
Temp Pulse Resp BP Pulse Ox
97.8 F 73 18 87/41 97
12/27/23 07:00 12/27/23 07:00 12/27/23 07:00 12/27/23 07:00 12/27/23 07:00
Lab Results - Hematology
12/25/23 12/26/23 12/27/23
08: 05:50 06:06
WBC 9.6 7.7 7.9
Lab Results - Chemistry
12/25/23 12/26/23 12/27/23
08: 05:50 06:06
BUN 12 10 9
Creatinine 0.6 L 0.6 L 0.6 L
Estimated Creat Clear > 125 > 125 > 125
Albumin 3.7 3.7
Therapeutic Drug Monitoring
Vancomycin Peak Cancelled 12/26/23 00:45
Vancomycin Trough 15.1 ug/ml (5-20) 12/26/23 05:50
--- NOTE | 2023-12-27 10:07 | PN.CDI ---
CDI
- -
CDI:
Physician Documentation Request
Admit Date: 12/20/23 02:18
Dear Doctor Cuate,
Patient admitted with surgical site infection with drainage RLE.
Pt carries a diagnosis of Schizophrenia and is currently under section 303 of mental health act to 20 days inpatient treatment, per hospitalist progress note.
Please provide the specificity of the schizophrenia:
- Paranoid schizophrenia
- Undifferentiated (atypical) schizophrenia
- Disorganized schizophrenia
- Residual schizophrenia
- Schizophreniform disorder
- Simple schizophrenia
- Other, please specify
Use of terms such as suspected, likely, concern for, or probable (associated with a specific diagnosis that is being evaluated, monitored, or treated as if it exists) are acceptable and can be coded in the inpatient setting, when documented at the
time of discharge.
Thank you,
Talita Ziegler RN, BSN
CDI Specialist
tiger text
Please use your independent medical judgment in providing your response.
[2023-12-27 11:00] VITALS: BP 100/52
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
[2023-12-27 15:00] VITALS: BP 104/68
--- NOTE | 2023-12-27 15:00 | W.PN.UPDATE ---
Addendum entered and electronically signed by Amberly Cuello MD 12/27/23 15:11:
depakote level low have inc to 500 mg bid this may not be enough to get him to therapeutic but will follow
Original Note:
Update Note
Progress Note Update
patient seen chart reviewed. spoke with nursing. the patient had a difficult time last evening with collaborating w staff vis a vis his wound. today he has been much more cooperative and is saying all the right things. he says he thinks the
vraylar is helping with mood. he is hoping to go home on weekend and from the texts i have seen his mom is willing to consider him coming home. he is now saying he will cooperate with picc line if he can go home. we shall see. did not change his
meds at this point. no ill effect noted.
--- NOTE | 2023-12-27 16:03 | W.PN.ID1 ---
Date of Service
Date of Service: December 27, 2023
Today's Communication
Continue antibiotics.
Assessment / Plan
Surgical Site Infection - RLE
Osteomyelitis - appears chronic
Hx S. lugdunensis bacteremia here and OR culture previous with S lugdunesis as well by report
- blood cultures x2 finalized negative; note previous culture from blood with s lugdunensis
- wound culture with enterococcus - amp sensitive
- continue vancomycin- plan 6 weeks of IV therapy followed by suppression - 12/21-01/31
- Home IV antibiotic sheet placed on paper chart in anticipation of possible discharge.
- follow clinically
Chief Complaint
-: Other (probable osteomyelitis)
Subjective / Review of Systems
Review of Systems: No Fever and No Chills
Vital Signs / Physical Exam
Vital Signs
Vital Signs
Temp Pulse Resp BP Pulse Ox
97.8 F 73 18 100/52 97
12/27/23 07:00 12/27/23 07:00 12/27/23 07:00 12/27/23 11:00 12/27/23 07:00
Physical Exam
Constitutional: No Acute Distress, Comfortable and Non-toxic
Pulmonary: Non Labored
Skin: Negative Rash or Jaundice
Neurological: Awake and Alert
Psychological: Calm
Objective Data
Lab Data
Lab Results
12/27/23 06:06
12/27/23 06:06
ESR 51 mm/hour (0-20) H 12/20/23 00:17
Estimated Creat Clear > 125 ml/min 12/27/23 06:06
Lactic Acid 1.6 mmol/L (0.7-2.0) 12/20/23 00:17
Lactic Acid Cancelled 12/20/23 00:17
Total Bilirubin 0.1 mg/dl (0.2-1.3) L 12/27/23 06:06
AST 14 U/L (17-59) L 12/27/23 06:06
ALT 12 U/L (0-50) 12/27/23 06:06
Alkaline Phosphatase 112 U/L (38-126) 12/27/23 06:06
C-Reactive Protein 22.70 mg/L (0.0-10.00) H 12/20/23 00:17
Most recent labs reviewed.
Micro Results:
12/20/23 01:25 Blood Culture - Final
Blood/Venous No Growth - Final Report
12/20/23 00:17 Blood Culture - Final
Blood/Venous No Growth - Final Report
12/20/23 11:39 Wound Culture - Final
Leg - Right Enterococcus faecalis
Gram Stain - Final
12/20/23 16:18 Wound Culture - Final
Tibia Gram Stain - Final
12/20/23 08:37 MRSA Screen - Final
Nose No Methicillin Resistant Staphylococcus aureus isolated.
Care Review
Plan reviewed with: Physician (Hospitalist)
[2023-12-27] MEDS: LOVENOX SC (17:02)
[2023-12-27] MEDS: TYLENOL 650 MG PO (18:07)
[2023-12-27] MEDS: HALDOL 2 MG PO (19:44)
[2023-12-27] MEDS: BENADRYL 50 MG PO (19:44)
[2023-12-27 22:04] LABS: Vancomycin Peak 23.1 ug/ml (18-26)
[2023-12-27] MEDS: MELATONIN 10 MG PO (23:15)
[2023-12-27] MEDS: CATAPRES 0.100000000000000006 MG PO (23:16)
[2023-12-27 23:18] VITALS: BP 115/79
[2023-12-27] MEDS: DEPAKENE 500 MG PO (23:24)
--- NOTE | 2023-12-28 03:33 | PTCARENOTE ---
1999 patient very agitated and angry. Mother at , patient screaming and yelling at his mom. attempts made to redirect without success. Spoke with mom and inst her it was best to leave for the night as he is very agitated. He was calm prior to her
arrival. See mar for medication administration. Inst patient yelling and screaming needed to stop and I would not have a conversation with him unless he agreed to talk vs yell. Patient agreed and began to calm down, mom went home. Discussed
expectations and poc with patient. He verb understanding.
--- NOTE | 2023-12-28 03:39 | PTCARENOTE ---
Patient has remained calm and cooperative. Patient sleeping at this time
[2023-12-28 05:46] LABS: Hematocrit 28.1 % (39.0-52.0); Hemoglobin 8.3 g/dL (13.0-18.0); Mean Corp Hgb Conc. 29.5 g/dL (33.0-37.0); Mean Corpuscular Hgb 23.1 pg (27.0-31.0); Mean Corpuscular Volume 78.3 fL (80.0-94.0); Mean Platelet Volume 9.5 fL (7.4-10.4); Platelet Count 409 10^3/uL (130-400); Red Blood Cell Count 3.59 10^6/uL (4.70-6.10); Red Cell Dist. Width 18.6 % (11.5-14.5)
[2023-12-28 06:18] LABS: Vancomycin Trough 11.1 ug/ml (5-20)
[2023-12-28 06:22] LABS: ALT (SGPT) 13 U/L (0-50); AST (SGOT) 14 U/L (17-59); Albumin 3.8 g/dl (3.5-5.0); Alkaline Phosphatase 116 U/L (38-126); Blood Urea Nitrogen 14 mg/dl (9-20); Calcium 9.6 mg/dl (8.4-10.2); Carbon Dioxide 27 mmol/L (22-30); Chloride 103 mmol/L (98-107); Estimated Creatinine Clearance > 125 ml/min; Glucose 89 mg/dl (70-99); Potassium 4.6 mmol/L (3.5-5.1); Sodium 141 mmol/L (135-145); Total Bilirubin 0.2 mg/dl (0.2-1.3); Total Protein 6.9 g/dl (6.3-8.2); eGFR > 60.00
[2023-12-28] MEDS: VANCOCIN 275 MG IV ×2 (06:28→20:12)
[2023-12-28 08:00] VITALS: BP 93/48
--- NOTE | 2023-12-28 08:09 | PHA.VAN.FU ---
Vancomycin Assessment / Plan
- Assessment
Renal Function: Stable
WBC's are: Stable
In the past 24 hrs, patient has been: Afebrile
- Assessment - Therapeutic Drug Monitoring
Extrapolated Cmax (mcg/mL): 29.8
Peak level was drawn: Appropriately
Extrapolated Cmin (mcg/mL): 11.6
Trough Drawn: Appropriately
Levels were drawn: At steady state
Calculated AUC (mcg*h/mL): 467
Calculated ke: 0.0894
Calculated half life (H): 7.8
Calculated Vd (L): 59.76
Calculated Vanc CL (ml/min): 89.002
- Dosing Plan
Continue: vancomycin 1250 mg q12h
- Monitoring Plan
Level(s) appropriate: Recheck trough at minimum of weekly intervals, Repeat sooner for changes in renal function or clinical status
- Follow Up
Pharmacy will continue to follow.
Vancomycin Follow UP
- -
Patient Age: 28
Patient Sex: Male
Vancomycin Day #: 7
Indication: Skin And Soft Tissue
Requesting Provider: Clint
Pertinent Antimicrobial Allergies:
colistin - H/V
Height / Weight:
Height 5 ft 10 in
Actual Weight 79.4 kg
IBW in k
- Vital Signs / Lab Results
Temp Pulse Resp BP Pulse Ox
98.1 F 81 18 115/79 94
12/27/23 23:18 12/27/23 23:18 12/27/23 23:18 12/27/23 23:18 12/27/23 23:18
Lab Results - Hematology
12/25/23 12/26/23 12/27/23
08: 05:50 06:06
WBC 9.6 7.7 7.9
12/28/23
05:34
WBC 7.0
Lab Results - Chemistry
12/25/23 12/26/23 12/27/23
08:28 05:50 06:06
BUN 12 10 9
Creatinine 0.6 L 0.6 L 0.6 L
Estimated Creat Clear > 125 > 125 > 125
Albumin 3.7 3.7
12/28/23
05:34
BUN 14
Creatinine 0.6 L
Estimated Creat Clear > 125
Albumin 3.8
Therapeutic Drug Monitoring
Vancomycin Peak 23.1 ug/ml (18-26) 12/27/23 21:22
Vancomycin Trough 11.1 ug/ml (5-20) 12/28/23 05:34
[2023-12-28 08:20] VITALS: BP 93/48
[2023-12-28] MEDS: NON-FORMULARY ITEM 1.5 MG PO (08:47)
[2023-12-28] MEDS: DEPAKENE 500 MG PO ×2 (08:48→22:04)
[2023-12-28] MEDS: NICODERM TRANSDERMAL 21 MG TRANSDERM (08:49)
[2023-12-28] MEDS: LEXAPRO 10 MG PO (08:50)
[2023-12-28] MEDS: LYRICA 150 MG PO ×2 (08:51→19:46)
[2023-12-28] MEDS: NON-FORMULARY ITEM 1 UNIT TOPICAL ×2 (08:52→22:00)
[2023-12-28] MEDS: NON-FORMULARY ITEM 1 UNIT PO (08:52)
[2023-12-28] MEDS: SENOKOT-S 1 TABLET PO (08:53)
[2023-12-28] MEDS: KLONOPIN 0.5 MG PO ×2 (09:51→17:55)
[2023-12-28] MEDS: ROXICODONE 5 MG PO ×3 (09:51→22:03)
[2023-12-28] MEDS: NICORETTE 4 MG PO ×3 (09:52→19:46)
[2023-12-28] MEDS: BENADRYL 50 MG PO (10:06)
[2023-12-28] MEDS: HALDOL 2 MG PO (10:07)
--- NOTE | 2023-12-28 11:43 | CM ---
Addendum entered by MO Ravi 12/28/23 12:21:
Patient called 911. retail loss prevention officer came to his room. CM updated him that he is on a 303 hold. Officer appreciated the information, spoke with patient and left without incident.
Original Note:
Reviewed chart, spoke with Psychiatry who stated that she is not planning on discharging patient until he can stay calm for close to a week. Patient has been noted to be agitated, yelling at his mother and staff.
Plan: Case management will continue to follow and assist with discharge planning. 303 being upheld.
--- NOTE | 2023-12-28 11:54 | W.PN.ID1 ---
Date of Service
Date of Service: December 28, 2023
Today's Communication
Continue antibiotics.
Assessment / Plan
Surgical Site Infection - RLE
Osteomyelitis right lower extremity - appears chronic
Hx S. lugdunensis bacteremia here and OR culture previous with S lugdunesis as well by report
- blood cultures x2 finalized negative; note previous culture from blood with s lugdunensis
- wound culture with enterococcus - amp sensitive
- continue vancomycin - plan 6 weeks of IV therapy followed by suppression - 12/21-01/31
- Home IV antibiotic sheet placed on paper chart in anticipation of possible discharge. Okay for PICC line from I.D standpoint.
- Patient to follow in the outpatient setting with Dr. Jaramillo after discharge.
����������������������������������������������������������
Chief Complaint
-: Other (Suspected osteomyelitis right lower extremity)
Subjective / Review of Systems
Review of Systems: No Fever and No Chills
Vital Signs / Physical Exam
Vital Signs
Vital Signs
Temp Pulse Resp BP Pulse Ox
98.0 F 61 18 93/48 99
12/28/23 08:00 12/28/23 08:00 12/28/23 08:00 12/28/23 08:00 12/28/23 08:00
Physical Exam
Constitutional: No Acute Distress, Comfortable and Non-toxic
Eyes: Sclera Anicteric
Pulmonary: Non Labored
Extremities: Edema (Right lower extremity)
Neurological: Awake and Alert
Psychological: Calm
Objective Data
Lab Data
Lab Results
12/28/23 05:34
12/28/23 05:34
ESR 51 mm/hour (0-20) H 12/20/23 00:17
Estimated Creat Clear > 125 ml/min 12/28/23 05:34
Lactic Acid 1.6 mmol/L (0.7-2.0) 12/20/23 00:17
Lactic Acid Cancelled 12/20/23 00:17
Total Bilirubin 0.2 mg/dl (0.2-1.3) 12/28/23 05:34
AST 14 U/L (17-59) L 12/28/23 05:34
ALT 13 U/L (0-50) 12/28/23 05:34
Alkaline Phosphatase 116 U/L (38-126) 12/28/23 05:34
C-Reactive Protein 22.70 mg/L (0.0-10.00) H 12/20/23 00:17
Most recent labs reviewed.
Micro Results:
12/20/23 01:25 Blood Culture - Final
Blood/Venous No Growth - Final Report
12/20/23 00:17 Blood Culture - Final
Blood/Venous No Growth - Final Report
12/20/23 11:39 Wound Culture - Final
Leg - Right Enterococcus faecalis
Gram Stain - Final
12/20/23 16:18 Wound Culture - Final
Tibia Gram Stain - Final
12/20/23 08:37 MRSA Screen - Final
Nose No Methicillin Resistant Staphylococcus aureus isolated.
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
--- NOTE | 2023-12-28 14:23 | PTCARENOTE ---
Pt angry and tearful throughout shift. Twice when on the phone with mother pt began screaming at the top of his lungs and crying. Yelling 'I'm not fucking staying here!' and 'You're a fucking bitch!' Lashes out at 1:1 staff and nurses at this time,
directing his anger towards them. Yelling, 'You're fucking retarded!' Insults offered throughout to nursing throughout wound care. Dr Cuello in to see patient, but pt immediately began screaming and yelling insults. Pt called 911 and told them
[facility] was keeping him against his will. Police arrived and spoke with patient. 303 on chart showed.
--- NOTE | 2023-12-28 14:33 | W.PN.UPDATE ---
Addendum entered and electronically signed by Amberly Cuello MD 12/28/23 14:39:
cut back lexapro to 10 mg since beginning wellbutrin to reduce risk of excitation on antidepressants given his irritability. also get depakote level sunday
Original Note:
Update Note
Progress Note Update
returned to see patric about possibly adding wellbutrin xl to meds in the hopes of reducing craving for cigarettes and his insistence on going home (although he is on a 303 and can remain here against his will). mom believes his harping on dc has to
do w craving for cigs. he agrees to give the wellbutrin xl 150 mg a try. it may also help w depression but need to watch for agitation / increased irritability. informed by staff that patient called police to complain that he was being held
against his will police were informed he was on a 303 and left. patient informed again that he will need five to seven days of appropriate behavior before we would consider dc to home. patient also told that if he called the police hospital would
not allow him to have a cell phone
[2023-12-28] MEDS: DURAGESIC 25 MCG/HR PATCH 1 PATCH TRANSDERM (14:40)
[2023-12-28 15:00] VITALS: BP 96/48
[2023-12-28] MEDS: LOVENOX SC (17:32)
[2023-12-28] MEDS: VANCOCIN IV (19:00)
--- NOTE | 2023-12-28 19:42 | PTCARENOTE ---
Assumed care of pt from previous nurse. Pt provided klonopin and roxycodone for anxiety and pain to left left. Pt wanted vraylar, pt received vraylar from previous nurse. Began screaming at this nurse, calling her an 'idiot' stating 'you are in
healthcare, you stole it because all people in healthcare are in it for the drugs. I'm calling the sleep technician' Pt unable to be redirected or calmed. Boundaries maintained with pt. Pt dressing to rle cdi. Pt with fentanyl patch to left upper arm, nicotine
patch to right upper arm. Pt would not let this RN assess him, said 'you are not even qualified to be a nurse.' Pt did have full assessment this shift by previous nurse. Pt call canales is within reach, pt rings xavier. 1:1 maintained at bedside.
[2023-12-28] MEDS: NON-FORMULARY ITEM TOPICAL (22:00)
[2023-12-28] MEDS: MELATONIN 10 MG PO (22:03)
[2023-12-28] MEDS: SENOKOT-S PO (22:03)
[2023-12-28 23:01] VITALS: BP 96/53
[2023-12-28 23:17] VITALS: BP 90/51
[2023-12-28] MEDS: CATAPRES PO (23:29)
[2023-12-29] MEDS: SENOKOT-S 1 TABLET PO ×3 (00:18→20:34)
[2023-12-29] MEDS: TYLENOL 650 MG PO ×2 (01:49→21:43)
[2023-12-29] MEDS: BENADRYL 50 MG PO (01:49)
[2023-12-29] MEDS: KLONOPIN 0.5 MG PO ×4 (01:52→22:55)
--- NOTE | 2023-12-29 02:20 | PTCARENOTE ---
Tech called nurse to come into the room as patient putting his fingers into his mouth and make himself vomitting. After got back to bed, patient started yelling and screaming loud his mom over the phone. Compressor Station Operator made aware and in his room. Given
PRN meds to help with his agitation and pain. POC reviewed with patient.
[2023-12-29] MEDS: VANCOCIN 275 MG IV ×2 (06:16→17:09)
[2023-12-29 07:17] VITALS: BP 89/41
[2023-12-29 07:52] LABS: Hemoglobin 8.4 g/dL (13.0-18.0); Mean Corpuscular Hgb 22.5 pg (27.0-31.0); Mean Corpuscular Volume 77.7 fL (80.0-94.0); Mean Platelet Volume 9.7 fL (7.4-10.4); Platelet Count 395 10^3/uL (130-400); Red Blood Cell Count 3.73 10^6/uL (4.70-6.10); Red Cell Dist. Width 18.7 % (11.5-14.5); White Blood Cell Count 7.3 10^3/uL (4.8-10.8)
[2023-12-29 08:11] LABS: ALT (SGPT) 13 U/L (0-50); AST (SGOT) 14 U/L (17-59); Albumin 3.7 g/dl (3.5-5.0); Alkaline Phosphatase 107 U/L (38-126); Blood Urea Nitrogen 16 mg/dl (9-20); Calcium 9.6 mg/dl (8.4-10.2); Carbon Dioxide 28 mmol/L (22-30); Chloride 103 mmol/L (98-107); Estimated Creatinine Clearance > 125 ml/min; Glucose 91 mg/dl (70-99); Potassium 4.6 mmol/L (3.5-5.1); Sodium 139 mmol/L (135-145); Total Bilirubin 0.1 mg/dl (0.2-1.3); Total Protein 6.8 g/dl (6.3-8.2); eGFR > 60.00
--- NOTE | 2023-12-29 10:03 | W.PN.UPDATE ---
Update Note
Progress Note Update
Patient is calmer today, seems more rational. Understands he need to work on as to how to control his anger; wants to go home but at least intellectually understands he needs to show ability to control his impulses.
Wellbutrin XL 150 mg was added yesterday so effects cannot be yet expected, no side effects reported.
At this point I would continue current psychotropic meds, will continue F/U.
[2023-12-29 10:15] VITALS: BP 98/56
[2023-12-29] MEDS: LYRICA 150 MG PO ×2 (10:17→20:34)
[2023-12-29] MEDS: NICODERM TRANSDERMAL 21 MG TRANSDERM (10:18)
[2023-12-29] MEDS: NICORETTE 4 MG PO ×4 (10:18→21:18)
[2023-12-29] MEDS: LEXAPRO 10 MG PO (10:18)
[2023-12-29] MEDS: DEPAKENE 500 MG PO ×2 (10:18→21:44)
[2023-12-29] MEDS: NON-FORMULARY ITEM 1 UNIT PO (10:19)
[2023-12-29] MEDS: NON-FORMULARY ITEM 1 UNIT TOPICAL ×2 (10:20→20:35)
[2023-12-29] MEDS: NON-FORMULARY ITEM 1 MG PO (10:20)
[2023-12-29] MEDS: WELLBUTRIN XL (24 hour extended release) 150 MG PO (10:21)
--- NOTE | 2023-12-29 10:23 | PHA.VAN.FU ---
Vancomycin Assessment / Plan
- Assessment
Renal Function: Stable
WBC's are: Stable
In the past 24 hrs, patient has been: Afebrile
- Dosing Plan
Continue: Vanc 1250mg IV q12H
- Monitoring Plan
Level(s) appropriate: Recheck trough at minimum of weekly intervals, Repeat sooner for changes in renal function or clinical status
- Follow Up
Pharmacy will continue to follow.
Vancomycin Follow UP
- -
Patient Age: 28
Patient Sex: Male
Vancomycin Day #: 8
Indication: Skin And Soft Tissue
Requesting Provider: Clint
Pertinent Antimicrobial Allergies:
colistin - H/V
Height / Weight:
Height 5 ft 10 in
Actual Weight 79.4 kg
IBW in k
- Vital Signs / Lab Results
Temp Pulse Resp BP Pulse Ox
97.6 F 64 16 98/56 96
12/29/23 07:17 12/29/23 07:17 12/29/23 07:17 12/29/23 10:15 12/28/23 23:01
Lab Results - Hematology
12/27/23 12/28/23 12/29/23
06:06 05:34 07:31
WBC 7.9 7.0 7.3
Lab Results - Chemistry
12/27/23 12/28/23 12/29/23
06:06 05:34 07:31
BUN 9 14 16
Creatinine 0.6 L 0.6 L 0.6 L
Estimated Creat Clear > 125 > 125 > 125
Albumin 3.7 3.8 3.7
Therapeutic Drug Monitoring
Vancomycin Peak 23.1 ug/ml (18-26) 12/27/23 21:22
Vancomycin Trough 11.1 ug/ml (5-20) 12/28/23 05:34
[2023-12-29] MEDS: ROXICODONE 5 MG PO ×3 (11:11→21:08)
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
[2023-12-29 15:12] VITALS: BP 89/51
[2023-12-29] MEDS: LOVENOX 40 MG SC (17:08)
--- NOTE | 2023-12-29 18:21 | PTCARENOTE ---
Pt complaining of anxiety but was not due for clonapin. MD notified and ordered a one time dose
[2023-12-29] MEDS: CATAPRES 0.100000000000000006 MG PO (21:44)
[2023-12-29] MEDS: MELATONIN 10 MG PO (21:44)
[2023-12-29 22:42] VITALS: BP 103/58
[2023-12-30] MEDS: NICORETTE 4 MG PO ×4 (04:56→17:01)
[2023-12-30] MEDS: VANCOCIN 275 MG IV ×3 (06:16→16:54)
[2023-12-30 07:18] LABS: Hematocrit 28.5 % (39.0-52.0); Hemoglobin 8.3 g/dL (13.0-18.0); Mean Corp Hgb Conc. 29.1 g/dL (33.0-37.0); Mean Corpuscular Hgb 23.1 pg (27.0-31.0); Mean Corpuscular Volume 79.4 fL (80.0-94.0); Mean Platelet Volume 9.9 fL (7.4-10.4); Platelet Count 381 10^3/uL (130-400); Red Blood Cell Count 3.59 10^6/uL (4.70-6.10); Red Cell Dist. Width 18.6 % (11.5-14.5); White Blood Cell Count 6.1 10^3/uL (4.8-10.8)
[2023-12-30 07:51] LABS: ALT (SGPT) 12 U/L (0-50); AST (SGOT) 17 U/L (17-59); Albumin 3.5 g/dl (3.5-5.0); Alkaline Phosphatase 105 U/L (38-126); Blood Urea Nitrogen 14 mg/dl (9-20); Calcium 9.2 mg/dl (8.4-10.2); Carbon Dioxide 25 mmol/L (22-30); Chloride 105 mmol/L (98-107); Estimated Creatinine Clearance > 125 ml/min; Glucose 90 mg/dl (70-99); Potassium 4.4 mmol/L (3.5-5.1); Sodium 137 mmol/L (135-145); Total Bilirubin 0.2 mg/dl (0.2-1.3); Total Protein 6.6 g/dl (6.3-8.2); eGFR > 60.00
[2023-12-30 08:28] VITALS: BP 102/63
[2023-12-30] MEDS: SENOKOT-S 1 TABLET PO ×2 (09:36→20:28)
[2023-12-30] MEDS: LYRICA 150 MG PO ×2 (09:36→20:21)
[2023-12-30] MEDS: WELLBUTRIN XL (24 hour extended release) 150 MG PO (09:36)
[2023-12-30] MEDS: LEXAPRO 10 MG PO (09:36)
[2023-12-30] MEDS: NICODERM TRANSDERMAL 21 MG TRANSDERM (09:36)
[2023-12-30] MEDS: NON-FORMULARY ITEM 1 MG PO (09:36)
[2023-12-30] MEDS: NON-FORMULARY ITEM 1 UNIT TOPICAL ×2 (09:37→20:22)
[2023-12-30] MEDS: NON-FORMULARY ITEM 2 UNIT PO (09:38)
[2023-12-30] MEDS: DEPAKENE 500 MG PO ×2 (09:38→21:20)
[2023-12-30] MEDS: TYLENOL 650 MG PO (09:44)
--- NOTE | 2023-12-30 11:22 | PHA.VAN.FU ---
Vancomycin Assessment / Plan
- Assessment
Renal Function: Stable
WBC's are: Trending Down
In the past 24 hrs, patient has been: Afebrile
- Follow Up
Pharmacy will continue to follow.
Vancomycin Follow UP
- -
Patient Age: 28
Patient Sex: Male
Vancomycin Day #: 9
Indication: Skin And Soft Tissue
Requesting Provider: Clint
Pertinent Antimicrobial Allergies:
colistin - H/V
Height / Weight:
Height 5 ft 10 in
Actual Weight 79.4 kg
IBW in k
- Vital Signs / Lab Results
Temp Pulse Resp BP Pulse Ox
97.6 F 81 18 102/63 100
12/30/23 08:28 12/30/23 08:28 12/30/23 08:28 12/30/23 08:28 12/30/23 08:28
Lab Results - Hematology
12/28/23 12/29/23 12/30/23
05:34 07:31 06:41
WBC 7.0 7.3 6.1
Lab Results - Chemistry
12/28/23 12/29/23 12/30/23
05:34 07:31 06:41
BUN 14 16 14
Creatinine 0.6 L 0.6 L 0.6 L
Estimated Creat Clear > 125 > 125 > 125
Albumin 3.8 3.7 3.5
Therapeutic Drug Monitoring
Vancomycin Peak 23.1 ug/ml (18-26) 12/27/23 21:22
Vancomycin Trough 11.1 ug/ml (5-20) 12/28/23 05:34
[2023-12-30] MEDS: ROXICODONE 5 MG PO ×3 (12:41→23:58)
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
--- NOTE | 2023-12-30 13:17 | W.PN.UPDATE ---
Update Note
Progress Note Update
Pt seen/ chart reviewed/ discussed with nursing staff. 30 mins spent.
Pt lying in bed, denies being in physical distress at the moment. He was not particularly talkative with me, and seemed suspicious of who I was and why I was talking to him, despite my explaining to him that I am one of the psychiatrists. He denied
hearing voices or seeing things, but appears vigilant. When I asked him what had happened to bring him in to the hospital, he said that his mom '302'd me to keep me safe,' could not tell me what he did or how he behaved. Acc to nursing staff pt is
intermittently bizarre, inappropriate, sometimes aggressive in behavior, sometimes overly compliant.
The recent addition of Cariprazine seems to be slowly calming him and clearing his thinking. I will increase the dose today- add 1.5 mg as he has already taken 1.5 mg and tomorrow he can start 3 mg a day.
Klonopin helps for intense anxiety,
[2023-12-30] MEDS: KLONOPIN 0.5 MG PO (13:22)
[2023-12-30] MEDS: NON-FORMULARY ITEM 1 TABLET PO (15:12)
[2023-12-30 15:30] VITALS: BP 108/75
[2023-12-30] MEDS: LOVENOX SC (16:51)
[2023-12-30] MEDS: SENOKOT-S PO (19:47)
[2023-12-30] MEDS: MELATONIN 10 MG PO (21:20)
[2023-12-30] MEDS: CATAPRES PO (21:25)
[2023-12-30 23:20] VITALS: BP 107/64
[2023-12-31] MEDS: NICORETTE 4 MG PO ×3 (00:01→14:38)
[2023-12-31] MEDS: KLONOPIN 0.5 MG PO ×2 (02:03→10:37)
[2023-12-31] MEDS: VANCOCIN 275 MG IV ×2 (05:28→17:20)
[2023-12-31 07:23] VITALS: BP 121/80
[2023-12-31 07:39] LABS: Hematocrit 27.1 % (39.0-52.0); Hemoglobin 8.4 g/dL (13.0-18.0); Mean Corpuscular Hgb 23.3 pg (27.0-31.0); Mean Corpuscular Volume 75.3 fL (80.0-94.0); Mean Platelet Volume 9.5 fL (7.4-10.4); Platelet Count 402 10^3/uL (130-400); Red Cell Dist. Width 18.6 % (11.5-14.5); White Blood Cell Count 6.9 10^3/uL (4.8-10.8)
[2023-12-31 08:01] LABS: Depakane 39.5 ug/ml (50.0-120.0)
[2023-12-31 08:12] LABS: ALT (SGPT) 13 U/L (0-50); AST (SGOT) 15 U/L (17-59); Albumin 3.6 g/dl (3.5-5.0); Alkaline Phosphatase 113 U/L (38-126); Blood Urea Nitrogen 10 mg/dl (9-20); Calcium 9.5 mg/dl (8.4-10.2); Carbon Dioxide 27 mmol/L (22-30); Chloride 102 mmol/L (98-107); Estimated Creatinine Clearance > 125 ml/min; Glucose 85 mg/dl (70-99); Potassium 4.4 mmol/L (3.5-5.1); Sodium 138 mmol/L (135-145); Total Bilirubin 0.2 mg/dl (0.2-1.3); Total Protein 6.7 g/dl (6.3-8.2); eGFR > 60.00
[2023-12-31] MEDS: LYRICA 150 MG PO ×2 (09:16→19:42)
[2023-12-31] MEDS: DEPAKENE 500 MG PO (09:16)
[2023-12-31] MEDS: LEXAPRO 10 MG PO (09:16)
[2023-12-31] MEDS: NICODERM TRANSDERMAL 21 MG TRANSDERM (09:16)
[2023-12-31] MEDS: WELLBUTRIN XL (24 hour extended release) 150 MG PO (09:16)
[2023-12-31] MEDS: NON-FORMULARY ITEM 3 MG PO (09:19)
[2023-12-31] MEDS: SENOKOT-S PO ×2 (09:21→19:43)
[2023-12-31] MEDS: NON-FORMULARY ITEM 1 UNIT TOPICAL ×2 (09:22→22:56)
[2023-12-31] MEDS: NON-FORMULARY ITEM 2 UNIT PO (09:44)
--- NOTE | 2023-12-31 10:04 | CM ---
Patient continues (per notes) to lash out at staff and is remaining argumentative. Per previous discussion with Psychiatry, patient will remain 303 until his behaviors calm down.
Plan: Case management will continue to follow and assist with discharge planning. Home when complying with medical care and staff.
[2023-12-31] MEDS: ROXICODONE 5 MG PO ×3 (10:37→19:53)
--- NOTE | 2023-12-31 11:01 | PHA.VAN.FU ---
Vancomycin Assessment / Plan
- Assessment
Renal Function: Stable
WBC's are: WNL
In the past 24 hrs, patient has been: Afebrile
- Dosing Plan
Continue: 1250mg Q12H
- Monitoring Plan
Level(s) appropriate: Recheck trough at minimum of weekly intervals, Repeat sooner for changes in renal function or clinical status
- Follow Up
Pharmacy will continue to follow.
Vancomycin Follow UP
- -
Patient Age: 28
Patient Sex: Male
Vancomycin Day #: 10
Indication: Skin And Soft Tissue
Requesting Provider: Clint
Pertinent Antimicrobial Allergies:
colistin - H/V
Height / Weight:
Height 5 ft 10 in
Actual Weight 79.4 kg
IBW in k
- Vital Signs / Lab Results
Temp Pulse Resp BP Pulse Ox
97.7 F 88 20 121/80 98
12/31/23 07:23 12/31/23 07:23 12/31/23 07:23 12/31/23 07:23 12/31/23 07:23
Lab Results - Hematology
12/29/23 12/30/23 12/31/23
07: 06:41 07:00
WBC 7.3 6.1 6.9
Lab Results - Chemistry
12/29/23 12/30/23 12/31/23
07: 06:41 07:00
BUN 16 14 10
Creatinine 0.6 L 0.6 L 0.6 L
Estimated Creat Clear > 125 > 125 > 125
Albumin 3.7 3.5 3.6
Therapeutic Drug Monitoring
Vancomycin Peak 23.1 ug/ml (18-26) 12/27/23 21:22
Vancomycin Trough 11.1 ug/ml (5-20) 12/28/23 05:34
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
[2023-12-31] MEDS: DURAGESIC 25 MCG/HR PATCH 1 PATCH TRANSDERM (14:05)
--- NOTE | 2023-12-31 15:13 | W.PN.UPDATE ---
Update Note
Progress Note Update
Pt seen, chart reviewed, discussed with nursing staff. Pt seen yelling, accusing multiple nurses of 'lying' about placing a new Fentanyl patch, although clear protocols were followed. Pt labile and regressed in affect, calling staff 'liars',
yelling. Pt not physically agitated or threatening. Vraylar was increased to 3 mg QD starting today; no EPS evident. Haldol prn was tapered to 2 mg and then stopped. Pt tolerating Depakene, though unclear why liquid form ordered. VPA level
today 39.5, though dose increase was 12/27 (has not reached steady state).
Imp: Schizoaffective d/o, R/o personality disorder. Pt remains on 303 for up to 20 days inpatient effective 12/20. Pt more labile in affect, less cooperative with staff
Rec: Continue increased Vraylar 3 mg daily- started today, change to Depakote (better tolerated), Wellbutrin XL for c/o nicotine w/d (monitor for increased irritability), Lexapro 10 mg QD
will give Haldol 2 mg IV prn for agitation.
--- NOTE | 2023-12-31 16:00 | PTCARENOTE ---
At 1400 new fentanyl patch due, RN proceeded to put new patch on with another RN and 1on1 at bedside. Previous patched removed with a witnessed waste. Pt awoken before patch was placed and pt proceeded to placed arm out to allow new patch to go on.
At 1500, patient awoken irritated stating new fentanyl patch was not placed and RN erased old date and put the new date (12/30) on patch. Patient proceeded to rip off fentanyl patch and throw it across the room. Pt demanded a new fentanyl patch.
Psychiatry seen at bedside while patient was agitated. Patch wasted in pyxis. No new patch placed. Dr. Toure notified. Safe and controlled environment remained at all times.
[2023-12-31] MEDS: LOVENOX SC (16:40)
--- NOTE | 2023-12-31 18:45 | PTCARENOTE ---
pt refused 1500 vitals signs. made aware
--- NOTE | 2023-12-31 19:40 | PTCARENOTE ---
Assumed care of Pt. Pt's mother at the bedside. Pt yelling and cursing at his mother, increasingly agitated. This RN lectured Pt on appropriate behavior while in the hospital and to refrain from cursing. Pt continues to escalate. Medicated with prn
haldol. 1:1 observation maintained. call canales within reach.
[2023-12-31] MEDS: DEPAKOTE (12 HR RELEASE) 500 MG PO (19:42)
[2023-12-31] MEDS: HALDOL 2 MG IV (19:43)
[2023-12-31 21:12] VITALS: BP 106/65
[2023-12-31] MEDS: CATAPRES PO (23:06)
[2023-12-31 23:07] VITALS: BP 91/46
[2024-01-01] MEDS: MELATONIN PO (00:41)
[2024-01-01] MEDS: VANCOCIN 275 MG IV (06:32)
[2024-01-01 07:30] VITALS: BP 106/84
[2024-01-01] MEDS: DEPAKOTE (12 HR RELEASE) 500 MG PO ×2 (07:56→20:02)
[2024-01-01] MEDS: WELLBUTRIN XL (24 hour extended release) 150 MG PO (07:56)
[2024-01-01] MEDS: LEXAPRO 10 MG PO (07:56)
[2024-01-01] MEDS: SENOKOT-S PO ×2 (07:56→20:55)
[2024-01-01] MEDS: NON-FORMULARY ITEM 2 UNIT PO (07:57)
[2024-01-01] MEDS: NICODERM TRANSDERMAL 21 MG TRANSDERM (07:57)
[2024-01-01] MEDS: LYRICA 150 MG PO ×2 (07:57→20:02)
[2024-01-01] MEDS: NON-FORMULARY ITEM 1 UNIT TOPICAL (07:59)
[2024-01-01] MEDS: NON-FORMULARY ITEM PO (08:04)
[2024-01-01] MEDS: KLONOPIN 0.5 MG PO ×2 (08:35→17:45)
[2024-01-01] MEDS: HALDOL 1 MG IM ×2 (08:57→17:45)
[2024-01-01] MEDS: NICORETTE 4 MG PO ×3 (08:58→15:57)
--- NOTE | 2024-01-01 09:09 | PHA.VAN.FU ---
Vancomycin Assessment / Plan
- Assessment
Renal Function: No New Labs Today (AM labs not yet collected)
In the past 24 hrs, patient has been: Afebrile
- Dosing Plan
Continue: Vanc 1250mg Q12H
- Monitoring Plan
Trough Level: 01/01 05:30 - to assess for accumulation
Monitoring Comments: levels to be drawn prior to 14th maintenance dose
- Follow Up
Pharmacy will continue to follow.
Vancomycin Follow UP
- -
Patient Age: 28
Patient Sex: Male
Vancomycin Day #: 11
Indication: Skin And Soft Tissue
Requesting Provider: Clint
Pertinent Antimicrobial Allergies:
colistin - H/V
Height / Weight:
Height 5 ft 10 in
Actual Weight 79.4 kg
IBW in k
- Vital Signs / Lab Results
Temp Pulse Resp BP Pulse Ox
97.9 F 82 18 91/46 95
12/31/23 23:07 12/31/23 23:07 12/31/23 23:07 12/31/23 23:07 12/31/23 23:07
Lab Results - Hematology
12/29/23 12/30/23 12/31/23
07: 06:41 07:00
WBC 7.3 6.1 6.9
Lab Results - Chemistry
12/30/23 12/31/23
06:41 07:00
BUN 14 10
Creatinine 0.6 L 0.6 L
Estimated Creat Clear > 125 > 125
Albumin 3.5 3.6
Therapeutic Drug Monitoring
Vancomycin Peak 23.1 ug/ml (18-26) 12/27/23 21:22
Vancomycin Trough 11.1 ug/ml (5-20) 12/28/23 05:34
--- NOTE | 2024-01-01 09:51 | PTCARENOTE ---
upon arriving to shift and taking primary role this Rn encountered a pt who is very uncooperative, verbally aggressive, manipulative and refusing medical care. pt discontinued PIV in Left hand, bleeding controlled by himself as he refused care.
about 75 mls of vanco not infused. pt refusing new PIV at the moment. One to one remains at bedside for safety. despite multiple redirection attempts and strategies, pt did require PRN medication for agitation per order. MD Vang made aware of
pts behavior. at the moment in time pt is quite resting underneath his blanket. + results noted from PRN meds. care plan continues to be followed. one to one remains at bedside.
[2024-01-01] MEDS: ROXICODONE 5 MG PO ×3 (10:19→21:00)
--- NOTE | 2024-01-01 10:50 | CM ---
Patient observed sleeping in bed this am. continue to follow for appropriate placement pending psych and physician recommendations. Patient continues on 303.
Plan; pendind physician recommendations.
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
--- NOTE | 2024-01-01 11:48 | PTCARENOTE ---
Pt was observed attempting to pull out his IV this AM. While attempting to educate and redirect, pt became agitated. Pt verbally abusive with this nurse while observing on 1:1. Pt yelling, cursing and treating this nurse. Pt picked up his cell phone
and treated to throw it at this nurse while in the present of another RN and PCT. While pt was in bed he asked this nurse ' Can you cuddle with me? You're like my sister and you're .' Pt was redirected. Safe environment maintained.
[2024-01-01] MEDS: NON-FORMULARY ITEM 3 MG PO (12:40)
[2024-01-01 15:00] VITALS: BP 114/76
--- NOTE | 2024-01-01 15:10 | W.PN.UPDATE ---
Update Note
Progress Note Update
Pt seen, reviewed with nursing staff. Pt has been more labile, agitated, yelling/screaming, regressed, making inappropriate comments to the med-sitter. Pt pulled out his IV. I witnessed pt yesterday afternoon telling the nursing staff they were
lying after they placed a new Fentanyl patch, pt pulled it off and threw it at the med sitter's monitor/work station. Today, pt has been yelling and uncooperative. Upon interview, he states he has been good, has been cooperative with staff, wants
me to clear him to have a PICC line placed so that he can go home. Pt regressed, complaining about having to go to the bathroom due to IV fluids, tired of being in the hospital after '12 days.' Pt aware he is recommended for IV antibiotics for 6
weeks due to signs of infection around surgical site/hardware in his Rt leg. Pt does not show overt delusions, no evidence of EPS on Vraylar 3 mg QD. Pt was started on Wellbutrin XL on 12/28 for c/o nicotine craving. Pt has received 2 doses of prn
Haldol since resumed. QTc 404 today.
Imp: Schizoaffective d/o, R/o personality disorder. Pt remains on 303 for up to 20 days inpatient effective 12/20. Pt more labile/irritable in affect, less cooperative with staff
Rec: Continue Vraylar 3 mg daily- increased on 12/30, Depakote, Lexapro 10 mg Daily, Haldol 2 mg IV prn for agitation.
Will stop Wellbutrin XL 150 mg- may be causing more irritability. Pt needs to demonstrate more stable emotions/behavior before a central line can be considered
will follow
[2024-01-01] MEDS: TYLENOL 650 MG PO (15:56)
--- NOTE | 2024-01-01 17:31 | W.PN.ID1 ---
Date of Service
Date of Service: January 01, 2024
Today's Communication
continue vancomycin
Assessment / Plan
Surgical Site Infection - RLE
Osteomyelitis right lower extremity - appears chronic
Hx S. lugdunensis bacteremia here and OR culture previous with S lugdunesis as well by report
- blood cultures x2 finalized negative; note previous culture from blood with s lugdunensis
- wound culture with enterococcus - amp sensitive
- plan remains to continue vancomycin - plan 6 weeks of IV therapy followed by suppression - 12/21-01/31
- attempt to replace PIV when patient more calm
- discussed long acting injectables oritavancin/dalbavancin with Dr East - however when long acting antipsychotics were previously tried outpatient he would reportedly scream throughout the duration of the injection - this behavior will not be
acceptable at an infusion center and indeed lead to the cessation of long acting injectable antipsychotics
- of note today patient screamed through the duration of the vancomycin infusion
- additionally patient self removed his second PIV this admission today
- situation is difficult and I would agree that at this time he has not demonstrated the ability to safely tolerate a PICC line
����������������������������������������������������������
Chief Complaint
-: Other (Suspected osteomyelitis right lower extremity)
Subjective / Review of Systems
afebrile
bp stable
bloody drainage on the dressing
discussed at length with Dr East
- discussed long acting injectables oritavancin/dalbavancin - however when long acting antipsychotics were previously tried outpatient he would reportedly scream throughout the duration of the injection - this behavior will not be acceptable at an
infusion center and indeed lead to the cessation of long acting injectable antipsychotics
- of note today patient screamed through the duration of the vancomycin infusion
- additionally patient self removed his second PIV this admission today
discussed frankly with patient, sitter and later when patient began yelling was joined with patients RN Colin that continuing to remove his PIVs is not acceptable and raises real concerns about the safety of a PICC or midline. Patient became visibly
agitated and made a number of statements that are not factual. Reported that he removed the PIV from the right hand rather than the left, reported that right hand was fine, reported that 'moms coming to pick me up now,' etc
Patient stated that he didnt want to speak with me further.
Patient became visibly agitated as I left and lunged quite close to me but did not touch me.
He currently does not have IV access
Vital Signs / Physical Exam
Vital Signs
Vital Signs
Temp Pulse Resp BP Pulse Ox
98.8 F 99 17 114/76 97
01/01/24 15:00 01/01/24 15:00 01/01/24 15:00 01/01/24 15:00 01/01/24 15:00
Physical Exam
Constitutional: No Acute Distress and Chronically Ill
Cardiovascular: Regular Rate
Pulmonary: Symmetric and Non Labored
Gastrointestinal: Non Distended
Wound: Other (dressing in place, some spotted blood on the dressing; patient did not allow me to examine the leg today)
Lines: Other (no current PIV. L hand PIV site no redness, swelling, tenderness or drainage.)
Objective Data
Lab Data
ESR 51 mm/hour (0-20) H 12/20/23 00:17
Estimated Creat Clear > 125 ml/min 12/31/23 07:00
Lactic Acid 1.6 mmol/L (0.7-2.0) 12/20/23 00:17
Lactic Acid Cancelled 12/20/23 00:17
Total Bilirubin 0.2 mg/dl (0.2-1.3) 12/31/23 07:00
AST 15 U/L (17-59) L 12/31/23 07:00
ALT 13 U/L (0-50) 12/31/23 07:00
Alkaline Phosphatase 113 U/L (38-126) 12/31/23 07:00
C-Reactive Protein 22.70 mg/L (0.0-10.00) H 12/20/23 00:17
Most recent labs reviewed.
Micro Results:
12/20/23 01:25 Blood Culture - Final
Blood/Venous No Growth - Final Report
12/20/23 00:17 Blood Culture - Final
Blood/Venous No Growth - Final Report
12/20/23 11:39 Wound Culture - Final
Leg - Right Enterococcus faecalis
Gram Stain - Final
12/20/23 16:18 Wound Culture - Final
Tibia Gram Stain - Final
12/20/23 08:37 MRSA Screen - Final
Nose No Methicillin Resistant Staphylococcus aureus isolated.
--- NOTE | 2024-01-01 17:56 | PTCARENOTE ---
End of shift update note. pt continues with refusing medical care i.e. PIV placement, IV antibiotic administration and blood draw. Additionally pt continues with hostile behaviors including verbal aggression, screaming, charging at this RN x3 this
shift and also charging at MD Nagel while she was attempting to update and reassess the pt. pt stopped short of making physical contact as this RN stepped in between the pt and the MD. During this scurry, pt displayed physical aggression
balling his hands into a fist and also mimicking throwing objects he was in reach of; neither of which action he acted upon. despite reasoning, redirection, using a calm reassuring approach, presenting options to the patient, attempting to get him
to participate in his own care, walking the halls with staff throughout the day and many other tactics deployed during the entirety of this shift, pt continues to display and act on these troublesome behaviors. Psych Md aware of pts behaviors
although left prior to pts episode with MD Roe. MD Thompson also abreast of pts behaviors throughout the day and his refusal to accept a new PIV, IV antibiotics and ordered blood draw from this AM. One to one has remains at bedside with this RN
visiting and addressing/redirecting pt frequently. Furthermore all staff working around the pts room is abreast of pt behaviors and that they need to be vigilant and responsive. The the restaurant service manager of the unit is also up to date on pts behaviors.
Pts mother did stop by earlier in the shift to drop off home meds at which time she was told by this RN about pts behaviors to keep her up to date. After the evening time episode of acting out, pt called his mother spoke (yelling/screaming) to her,
handed this RN the phone at which time pts mother once again was updated on the current situation, pts aggressive behavior and also his continued refusal for PIV/IV ABX tx/blood draw. PRN medications have been used as ordered throughout the shift.
this RN continues to promote a safe and comfortable environment for the patient, staff and other pts on this floor who have also been affected d/t the excessive yelling, screaming and aggression throughout the day. Currently pt is safe. one to one
remains, pt finishing dinner tray. family, MDs, staff, one to one and pt himself are up to date on plan of action which is to maintain safety and comfort while delivering care that is appropriate for the circumstance.
[2024-01-01] MEDS: LOVENOX SC (18:25)
[2024-01-01] MEDS: VANCOCIN IV (18:26)
--- NOTE | 2024-01-01 19:44 | PTCARENOTE ---
pt with increased agitation at change of shift s/p mother visiting and leaving with her stating 'i dont think I helped the situation.' pt calling 911 x2. security notified of instance. redirecting unsuccessful by this RN at which time evening
charger tester called durga munoz. one to one remains. security at bedside. senior administrative services officer arrived to bedside. car shifter SUSTAINABLE SYSTEMS ANALYST present and updated on days events. report provided to Kiara car shifter RN with walking rounds completed.
[2024-01-01] MEDS: NON-FORMULARY ITEM TOPICAL (20:55)
[2024-01-01] MEDS: MELATONIN 10 MG PO (21:00)
[2024-01-01] MEDS: CATAPRES 0.100000000000000006 MG PO (21:01)
[2024-01-01 23:00] VITALS: BP 121/70
--- NOTE | 2024-01-02 02:57 | W.PN.UPDATE ---
Update Note
Progress Note Update
change of shift 7pm pt was a code purple
pt screaming and agitated that he wants to leave. Called police. Claims he was told that he could leave today after picc line placed. Per nursing he had pulled out PIV and will not let anyone replace.
pt behaviors warranted adding 4 limb restraints for aggressive behavior.
pt is currently 303
[2024-01-02] MEDS: ROXICODONE 5 MG PO ×3 (05:02→21:16)
[2024-01-02 05:16] LABS: Hematocrit 28.2 % (39.0-52.0); Hemoglobin 8.4 g/dL (13.0-18.0); Mean Corp Hgb Conc. 29.8 g/dL (33.0-37.0); Mean Corpuscular Hgb 23.1 pg (27.0-31.0); Mean Corpuscular Volume 77.5 fL (80.0-94.0); Mean Platelet Volume 9.9 fL (7.4-10.4); Platelet Count 390 10^3/uL (130-400); Red Blood Cell Count 3.64 10^6/uL (4.70-6.10); Red Cell Dist. Width 18.7 % (11.5-14.5); White Blood Cell Count 7.3 10^3/uL (4.8-10.8)
[2024-01-02] MEDS: VANCOCIN 275 MG IV ×2 (05:16→17:38)
[2024-01-02 05:40] LABS: ALT (SGPT) 13 U/L (0-50); AST (SGOT) 19 U/L (17-59); Albumin 3.8 g/dl (3.5-5.0); Alkaline Phosphatase 112 U/L (38-126); Blood Urea Nitrogen 14 mg/dl (9-20); Calcium 9.6 mg/dl (8.4-10.2); Carbon Dioxide 25 mmol/L (22-30); Chloride 106 mmol/L (98-107); Estimated Creatinine Clearance > 125 ml/min; Glucose 92 mg/dl (70-99); Potassium 4.1 mmol/L (3.5-5.1); Sodium 138 mmol/L (135-145); Total Bilirubin 0.3 mg/dl (0.2-1.3); Total Protein 6.9 g/dl (6.3-8.2); eGFR > 60.00
[2024-01-02 06:09] LABS: Vancomycin Trough 7.7 ug/ml (5-20)
--- NOTE | 2024-01-02 08:29 | PHA.VAN.FU ---
Vancomycin Assessment / Plan
- Assessment
Renal Function: Stable
WBC's are: WNL
In the past 24 hrs, patient has been: Afebrile
- Assessment - Trough Based Monitoring
Trough value of 7.7 is not an accurate level as patient refused the 4/ 1800 dose before the level
Value is artificially low
- Dosing Plan
Continue: Vanc 1250mg Q12H
- Monitoring Plan
No level(s) ordered at this time: will attempt to repeat levels in next few days
- Follow Up
Pharmacy will continue to follow.
Vancomycin Follow UP
- -
Patient Age: 28
Patient Sex: Male
Vancomycin Day #: 12
Indication: Skin And Soft Tissue
Requesting Provider: Clint
Pertinent Antimicrobial Allergies:
colistin - H/V
Height / Weight:
Height 5 ft 10 in
Actual Weight 79.4 kg
IBW in k
- Vital Signs / Lab Results
Temp Pulse Resp BP Pulse Ox
98.0 F 86 18 121/70 97
01/01/24 23:00 01/01/24 23:00 01/01/24 23:00 01/01/24 23:00 01/01/24 23:00
Lab Results - Hematology
12/30/23 12/31/23 01/01/24
06:41 07:00 06:00
WBC 6.1 6.9 Cancelled
01/02/24
05:08
WBC 7.3
Lab Results - Chemistry
12/31/23 01/01/24 01/02/24
07:00 06:00 05:08
BUN 10 Cancelled 14
Creatinine 0.6 L Cancelled 0.6 L
Estimated Creat Clear > 125 Cancelled > 125
Albumin 3.6 Cancelled 3.8
Therapeutic Drug Monitoring
Vancomycin Peak 23.1 ug/ml (18-26) 12/27/23 21:22
Vancomycin Trough 7.7 ug/ml (5-20) 01/02/24 05:36
[2024-01-02] MEDS: NICODERM TRANSDERMAL 21 MG TRANSDERM (08:52)
[2024-01-02 08:53] VITALS: BP 98/63
[2024-01-02] MEDS: LYRICA 150 MG PO ×2 (08:54→20:30)
[2024-01-02] MEDS: DEPAKOTE (12 HR RELEASE) 500 MG PO (08:54)
[2024-01-02] MEDS: LEXAPRO 10 MG PO (08:54)
[2024-01-02] MEDS: SENOKOT-S 1 TABLET PO (08:54)
[2024-01-02] MEDS: NON-FORMULARY ITEM 2 UNIT PO (08:55)
[2024-01-02] MEDS: NON-FORMULARY ITEM 3 MG PO (08:58)
[2024-01-02] MEDS: NON-FORMULARY ITEM 1 UNIT TOPICAL ×2 (08:59→18:33)
[2024-01-02] MEDS: NICORETTE 4 MG PO ×4 (09:04→21:22)
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
--- NOTE | 2024-01-02 10:50 | WOUNDNOTE ---
[facility] RN note: Patient's RLE dressing changed. A clear suture without a knot just lateral to wound noted and came out easily during wound care. Moderate ss drainage from R tidwell wound. Wound pink, suspect proximal end tracts deep however, too narrow to
insert cotton tipped applicator. Suspect he may always have a draining wound/sinus tract in this location d/t suspected chronic osteomyelitis. R plantar heel incision scabbed and dry without drainage. Toes warm. R heel foam dressings applied
(posterior and plantar). Skin on heels intact. Patient moves self in bed. Heels off bed with pillow. He mentioned he was ambulating some yesterday. R knee high Eyad wrap applied. Will follow peripherally as needed. Fernando texted Dr. Clint FERRER
wound pic per patient's request.
--- NOTE | 2024-01-02 10:50 | WOUNDNOTE ---
[facility] RN note: Patient's RLE dressing changed. Moderate ss drainage from R tidwell wound. Wound pink, suspect proximal end tracts deep however, too narrow to insert cotton tipped applicator. Suspect he may always have a draining wound/sinus tract in this
location d/t suspected chronic osteomyelitis. R plantar heel incision scabbed and dry without drainage. Toes warm. R heel foam dressings applied (posterior and plantar). Skin on heels intact. Patient moves self in bed. Heels off bed with pillow. He
mentioned he was ambulating some yesterday. R knee high Eyad wrap applied. Will follow peripherally as needed. Fernando texted Dr. Jaramillo RLE wound pic per patient's request.
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
--- NOTE | 2024-01-02 13:17 | W.PN.UPDATE ---
Update Note
Progress Note Update
Chart reviewed
Missed evening dose of vancomycin but did have the AM dose.
Case discussed with Dr Cuello this AM.
Patient escalating this afternoon - can hear him yelling from the armas
Repeatedly calling 911 from his room phone - eventually removed by staff
Photo sent to me by auto damage adjuster via [facility] text - fistula appears smaller and not currently probing deep with the Qtip which is a significant improvement
Discussed with nursing management Jackie and later Pallavi as well, agreed that when I do visit will ensure that capable staff member joins me.
WBC 7.3
cr 0.6
At the time of rounds patient was continuously yelling and agitated which was readily apparent from the armas.
I saw Dr Cuello in the armas and she asked me not to visit at this moment for concern that he might escalate further. I agree and did not visit the room today.
No changes to the plan from ID perspective at this time.
--- NOTE | 2024-01-02 14:56 | PTCARENOTE ---
Safety Plan: Staff (including physicans) encouraged to notify security to accompany them into room if uncomfortable due to unpredictable aggressive nature displayed by patient towards providers and providers of care. Security aware and supportive to
this plan. If patient is inappropriate by exposing others to sexual self touching, staff should firmly advise patient to stop and that behavior is not appropriate in front of staff.
[2024-01-02 15:00] VITALS: BP 117/72
[2024-01-02] MEDS: KLONOPIN 1 MG PO ×2 (15:46→21:16)
[2024-01-02] MEDS: LOVENOX 40 MG SC (17:37)
[2024-01-02] MEDS: TYLENOL 650 MG PO (17:44)
[2024-01-02] MEDS: SENOKOT-S PO (19:18)
[2024-01-02] MEDS: DEPAKOTE (12 HR RELEASE) 750 MG PO (20:30)
[2024-01-02] MEDS: MELATONIN 10 MG PO (21:16)
[2024-01-02] MEDS: CATAPRES 0.100000000000000006 MG PO (21:17)
[2024-01-03] MEDS: VANCOCIN 275 MG IV ×2 (05:18→17:21)
[2024-01-03] MEDS: LYRICA 150 MG PO ×2 (08:27→19:58)
[2024-01-03] MEDS: SENOKOT-S 1 TABLET PO (08:27)
[2024-01-03] MEDS: LEXAPRO 10 MG PO (08:28)
[2024-01-03] MEDS: KLONOPIN 1 MG PO ×3 (08:28→21:09)
[2024-01-03] MEDS: NICODERM TRANSDERMAL 21 MG TRANSDERM (08:28)
[2024-01-03] MEDS: DEPAKOTE (12 HR RELEASE) 750 MG PO ×2 (08:28→19:58)
[2024-01-03] MEDS: NON-FORMULARY ITEM 1 UNIT PO (08:29)
[2024-01-03 08:30] VITALS: BP 103/58
[2024-01-03] MEDS: NON-FORMULARY ITEM 1.5 MG PO (08:30)
[2024-01-03] MEDS: NON-FORMULARY ITEM 1 UNIT TOPICAL ×2 (08:31→20:03)
--- NOTE | 2024-01-03 09:00 | CM ---
discussed with radhames marques cm music manager.patient with surgical site infection rle.h on iv vanco for 6 weeks.patient has pulled his picc out several times.attending to wait until patient's behavior is more stable before placing another picc per
doctor's note.psych following patient.patient wants to go home.cm will contact home infusions companies once the picc line is inserted to fine out if an infusion company is able to service patient at home.patient had his last surgery at [facility]
so cm to contact [facility] as well.
Plan:home with iv abx if an accepting infusion company
--- NOTE | 2024-01-03 09:06 | PHA.VAN.FU ---
Vancomycin Assessment / Plan
- Assessment
Renal Function: Stable
WBC's are: WNL
In the past 24 hrs, patient has been: Afebrile
- Dosing Plan
Continue: Vanc 1250mg Q12H
- Monitoring Plan
Trough Level: 4 05:30
will attempt to obtain true trough again to ensure regimen remains appropriate
- Follow Up
Pharmacy will continue to follow.
Vancomycin Follow UP
- -
Patient Age: 28
Patient Sex: Male
Vancomycin Day #: 13
Indication: Skin And Soft Tissue
Requesting Provider: Clint
Pertinent Antimicrobial Allergies:
colistin - H/V
Height / Weight:
Height 5 ft 10 in
Actual Weight 79.4 kg
IBW in k
- Vital Signs / Lab Results
Temp Pulse Resp BP Pulse Ox
97.8 F 82 16 103/58 98
01/03/24 08:30 01/03/24 08:30 01/03/24 08:30 01/03/24 08:30 01/03/24 08:30
Lab Results - Hematology
01/01/24 01/02/24
06:00 05:08
WBC Cancelled 7.3
Lab Results - Chemistry
01/01/24 01/02/24
06:00 05:08
BUN Cancelled 14
Creatinine Cancelled 0.6 L
Estimated Creat Clear Cancelled > 125
Albumin Cancelled 3.8
Therapeutic Drug Monitoring
Vancomycin Peak 23.1 ug/ml (18-26) 12/27/23 21:22
Vancomycin Trough 7.7 ug/ml (5-20) 01/02/24 05:36
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
--- NOTE | 2024-01-03 11:02 | W.PN.UPDATE ---
Update Note
Progress Note Update
patient seen chart reviewed. patient was sleeping and i attempted to rouse him but he did rouse sufficiently to engage in conversation. for now will continue w current medications which i increased yesterday. the goal is to successfully treat the
osteomyelitis and get him in a position where he can be safely discharged.
[2024-01-03] MEDS: ROXICODONE 5 MG PO ×3 (12:20→21:09)
[2024-01-03] MEDS: DURAGESIC 25 MCG/HR PATCH 1 PATCH TRANSDERM (13:47)
[2024-01-03] MEDS: NICORETTE 4 MG PO (14:49)
[2024-01-03 15:33] VITALS: BP 109/75
[2024-01-03] MEDS: TORADOL 15 MG IV ×2 (16:28→22:43)
--- NOTE | 2024-01-03 17:14 | W.PN.ID1 ---
Date of Service
Date of Service: January 03, 2024
Today's Communication
- fistula notably closing, with gentle pressure gives way and probes to bone however much improved compared to previous exams
- plan remains to continue vancomycin - plan 6 weeks of IV therapy followed by suppression - 12/21-01/31
-PIV in place
- situation is difficult, would like to see several days of mood stability without removal of lines before i would reconsider PICC
Assessment / Plan
Surgical Site Infection - RLE
Osteomyelitis right lower extremity - appears chronic
Hx S. lugdunensis bacteremia here and OR culture previous with S lugdunesis as well by report
- fistula notably closing, with gentle pressure gives way and probes to bone however much improved compared to previous exams
- plan remains to continue vancomycin - plan 6 weeks of IV therapy followed by suppression - 12/21-01/31
-PIV in place
- situation is difficult, would like to see several days of mood stability without removal of lines before i would reconsider PICC
����������������������������������������������������������
Chief Complaint
-: Other (Suspected osteomyelitis right lower extremity)
Subjective / Review of Systems
walked in the halls with PT
pleasant today
he is convinced that he has not been having labile moods or acting out; I respectfully disagreed
piv in place
Vital Signs / Physical Exam
Vital Signs
Vital Signs
Temp Pulse Resp BP Pulse Ox
98.0 F 83 20 109/75 99
01/03/24 15:33 01/03/24 15:33 01/03/24 15:33 01/03/24 15:33 01/03/24 15:33
Physical Exam
Constitutional: No Acute Distress
Cardiovascular: Regular Rate and S1/S2; Negative Murmur or Rub
Pulmonary: Clear and Symmetric; Negative Wheezes or Rales
Gastrointestinal: Soft, Non Tender, Non Distended and Normal Bowel Sounds
Skin: Warm and Dry; Negative Rash or Jaundice
Wound: Other (fistula notably closing, with gentle pressure gives way and probes to bone however much improved compared to previous exams)
Lines: PIV (L hand - no erythema, warmth tenderness or drainage)
Objective Data
Lab Data
Lab Results
01/02/24 05:08
01/02/24 05:08
ESR 51 mm/hour (0-20) H 12/20/23 00:17
Estimated Creat Clear > 125 ml/min 01/02/24 05:08
Lactic Acid 1.6 mmol/L (0.7-2.0) 12/20/23 00:17
Lactic Acid Cancelled 12/20/23 00:17
Total Bilirubin 0.3 mg/dl (0.2-1.3) 01/02/24 05:08
AST 19 U/L (17-59) 01/02/24 05:08
ALT 13 U/L (0-50) 01/02/24 05:08
Alkaline Phosphatase 112 U/L (38-126) 01/02/24 05:08
C-Reactive Protein 22.70 mg/L (0.0-10.00) H 12/20/23 00:17
Most recent labs reviewed.
Micro Results:
12/20/23 01:25 Blood Culture - Final
Blood/Venous No Growth - Final Report
12/20/23 00:17 Blood Culture - Final
Blood/Venous No Growth - Final Report
12/20/23 11:39 Wound Culture - Final
Leg - Right Enterococcus faecalis
Gram Stain - Final
12/20/23 16:18 Wound Culture - Final
Tibia Gram Stain - Final
12/20/23 08:37 MRSA Screen - Final
Nose No Methicillin Resistant Staphylococcus aureus isolated.
[2024-01-03] MEDS: LOVENOX 40 MG SC (17:21)
[2024-01-03] MEDS: SENOKOT-S PO (19:58)
[2024-01-03] MEDS: CATAPRES 0.100000000000000006 MG PO (21:08)
[2024-01-03] MEDS: MELATONIN 10 MG PO (21:08)
[2024-01-04] MEDS: VANCOCIN 275 MG IV ×2 (05:31→17:56)
[2024-01-04 08:03] VITALS: BP 99/57
[2024-01-04] MEDS: NICODERM TRANSDERMAL 21 MG TRANSDERM (08:21)
[2024-01-04] MEDS: LEXAPRO 10 MG PO (08:22)
[2024-01-04] MEDS: SENOKOT-S 1 TABLET PO (08:22)
[2024-01-04] MEDS: DEPAKOTE (12 HR RELEASE) 750 MG PO ×2 (08:22→20:11)
[2024-01-04] MEDS: LYRICA 150 MG PO ×2 (08:22→20:11)
[2024-01-04] MEDS: NON-FORMULARY ITEM 2 UNIT PO (08:23)
[2024-01-04] MEDS: KLONOPIN 1 MG PO ×3 (08:23→22:59)
[2024-01-04] MEDS: PREPARATION H OINTMENT 1 APPLIC RECTAL (08:23)
[2024-01-04] MEDS: NON-FORMULARY ITEM 3 MG PO (08:24)
[2024-01-04] MEDS: NON-FORMULARY ITEM 1 UNIT TOPICAL ×2 (08:25→20:12)
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
--- NOTE | 2024-01-04 08:42 | PHA.VAN.FU ---
Vancomycin Assessment / Plan
- Assessment
Renal Function: Stable
WBC's are: Stable
In the past 24 hrs, patient has been: Afebrile
- Assessment - Trough Based Monitoring
Trough Value: 11
Level Today was: Appropriate
Level Comments: Trough level was drawn after 5 consecutive doses
- Dosing Plan
Continue: vancomycin 1250 q12h
- Monitoring Plan
Level(s) appropriate: Recheck trough at minimum of weekly intervals, Repeat sooner for changes in renal function or clinical status
- Follow Up
Pharmacy will continue to follow.
Vancomycin Follow UP
- -
Patient Age: 28
Patient Sex: Male
Vancomycin Day #: 14
Indication: Skin And Soft Tissue
Requesting Provider: Clint
Pertinent Antimicrobial Allergies:
colistin - H/V
Height / Weight:
Height 5 ft 10 in
Actual Weight 79.4 kg
IBW in k
- Vital Signs / Lab Results
Temp Pulse Resp BP Pulse Ox
97.0 F 80 16 99/57 98
01/04/24 08:03 01/04/24 08:03 01/04/24 08:03 01/04/24 08:03 01/04/24 08:03
Lab Results - Hematology
01/01/24 01/02/24
06:00 05:08
WBC Cancelled 7.3
Lab Results - Chemistry
01/01/24 01/02/24
06:00 05:08
BUN Cancelled 14
Creatinine Cancelled 0.6 L
Estimated Creat Clear Cancelled > 125
Albumin Cancelled 3.8
Therapeutic Drug Monitoring
Vancomycin Peak 23.1 ug/ml (18-26) 12/27/23 21:22
Vancomycin Trough 11.0 ug/ml (5-20) 01/04/24 05:24
[2024-01-04] MEDS: ROXICODONE 5 MG PO ×2 (09:36→20:11)
[2024-01-04] MEDS: NICORETTE 4 MG PO ×2 (09:36→19:39)
[2024-01-04] MEDS: TORADOL 15 MG IV ×2 (10:45→18:12)
[2024-01-04 11:36] VITALS: BP 101/58
[2024-01-04 11:37] LABS: Glucose - Point of Care 116 mg/dl (70-99)
--- NOTE | 2024-01-04 11:49 | PTCARENOTE ---
pt change of metal status per 1:1 tech. Pt VSS stable, glucose 116, last narc given at appro 8:30am, so unlikely needing Narcan, Dr Vang also assessed, no new orders. No rapid response warranted. Pt mentation cleared on own. AO3
[2024-01-04] MEDS: COMPAZINE 5 MG PO (12:09)
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
--- NOTE | 2024-01-04 13:25 | W.PN.ID1 ---
Date of Service
Date of Service: January 04, 2024
Today's Communication
- plan remains to continue vancomycin - plan 6 weeks of IV therapy followed by suppression - 12/21-01/31
-PIV in place
Assessment / Plan
Surgical Site Infection - RLE
Osteomyelitis right lower extremity - appears chronic
Hx S. lugdunensis bacteremia here and OR culture previous with S lugdunesis as well by report
- plan remains to continue vancomycin - plan 6 weeks of IV therapy followed by suppression - 12/21-01/31
-PIV in place
- situation is difficult, would like to see several days of mood stability without removal of lines before i would reconsider PICC
����������������������������������������������������������
Chief Complaint
-: Other (Suspected osteomyelitis right lower extremity)
Subjective / Review of Systems
afebrile
bp stable
piv in place
'Im bored' but otherwise no complaints
not agressive or demanding today
Vital Signs / Physical Exam
Vital Signs
Vital Signs
Temp Pulse Resp BP Pulse Ox
97.2 F 75 12 101/58 96
01/04/24 11:36 01/04/24 11:36 01/04/24 11:36 01/04/24 11:36 01/04/24 11:36
Physical Exam
Constitutional: No Acute Distress
Cardiovascular: Regular Rate and S1/S2; Negative Murmur or Rub
Pulmonary: Clear and Symmetric; Negative Wheezes or Rales
Gastrointestinal: Soft, Non Tender, Non Distended and Normal Bowel Sounds
Skin: Warm and Dry; Negative Rash or Jaundice
Wound: Other (fistula closing)
Objective Data
Lab Data
Lab Results
01/02/24 05:08
01/02/24 05:08
ESR 51 mm/hour (0-20) H 12/20/23 00:17
Estimated Creat Clear > 125 ml/min 01/02/24 05:08
Lactic Acid 1.6 mmol/L (0.7-2.0) 12/20/23 00:17
Lactic Acid Cancelled 12/20/23 00:17
Total Bilirubin 0.3 mg/dl (0.2-1.3) 01/02/24 05:08
AST 19 U/L (17-59) 01/02/24 05:08
ALT 13 U/L (0-50) 01/02/24 05:08
Alkaline Phosphatase 112 U/L (38-126) 01/02/24 05:08
C-Reactive Protein 22.70 mg/L (0.0-10.00) H 12/20/23 00:17
Most recent labs reviewed.
Micro Results:
12/20/23 01:25 Blood Culture - Final
Blood/Venous No Growth - Final Report
12/20/23 00:17 Blood Culture - Final
Blood/Venous No Growth - Final Report
12/20/23 11:39 Wound Culture - Final
Leg - Right Enterococcus faecalis
Gram Stain - Final
12/20/23 16:18 Wound Culture - Final
Tibia Gram Stain - Final
12/20/23 08:37 MRSA Screen - Final
Nose No Methicillin Resistant Staphylococcus aureus isolated.
Care Review
Plan reviewed with: Physician (Dr Cuello - jia)
[2024-01-04 15:17] VITALS: BP 102/60
[2024-01-04] MEDS: LOVENOX 40 MG SC (17:54)
--- NOTE | 2024-01-04 18:47 | PTCARENOTE ---
pt had an excellent day today, minor inappropriate comment, but no outburst or aggression. Pleasant and cooperative
[2024-01-04] MEDS: KLONOPIN 0.5 MG PO (19:39)
[2024-01-04] MEDS: SENOKOT-S PO ×2 (20:11→20:16)
[2024-01-04 22:51] VITALS: BP 98/51
[2024-01-04] MEDS: MELATONIN 10 MG PO (22:59)
[2024-01-04] MEDS: CATAPRES PO (23:00)
[2024-01-05] MEDS: VANCOCIN 275 MG IV ×2 (05:13→17:05)
[2024-01-05] MEDS: TORADOL 15 MG IV ×3 (05:13→18:41)
[2024-01-05 07:24] VITALS: BP 105/40
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
[2024-01-05] MEDS: LYRICA 150 MG PO ×2 (08:27→21:12)
[2024-01-05] MEDS: NICODERM TRANSDERMAL 21 MG TRANSDERM (08:27)
[2024-01-05] MEDS: SENOKOT-S 1 TABLET PO (08:27)
[2024-01-05] MEDS: LEXAPRO 10 MG PO (08:28)
[2024-01-05] MEDS: KLONOPIN 1 MG PO ×3 (08:28→21:12)
[2024-01-05] MEDS: DEPAKOTE (12 HR RELEASE) 750 MG PO ×2 (08:28→21:13)
[2024-01-05] MEDS: NON-FORMULARY ITEM 1 UNIT PO (08:29)
[2024-01-05] MEDS: PREPARATION H OINTMENT 1 APPLIC RECTAL (08:30)
[2024-01-05] MEDS: NON-FORMULARY ITEM 3 MG PO (08:31)
[2024-01-05] MEDS: NON-FORMULARY ITEM 1 UNIT TOPICAL ×2 (08:31→21:12)
--- NOTE | 2024-01-05 08:41 | PHA.VAN.FU ---
Vancomycin Assessment / Plan
- Assessment
Renal Function: No New Labs Today
- Assessment - Trough Based Monitoring
Trough Value: trough on 01/03 was 11.0 ( after 5 consecutive doses) - appropropriate
- Dosing Plan
Continue: vancomycin 1250mg q12h
- Monitoring Plan
Level(s) appropriate: Recheck trough at minimum of weekly intervals, Repeat sooner for changes in renal function or clinical status
- Follow Up
Pharmacy will continue to follow.
Vancomycin Follow UP
- -
Patient Age: 28
Patient Sex: Male
Vancomycin Day #: 15
Indication: Skin And Soft Tissue
Requesting Provider: Clint
Pertinent Antimicrobial Allergies:
colistin - H/V
Height / Weight:
Height 5 ft 10 in
Actual Weight 79.4 kg
IBW in k
- Vital Signs / Lab Results
Temp Pulse Resp BP Pulse Ox
97.7 F 60 14 105/40 96
01/05/24 07:24 01/05/24 07:24 01/05/24 07:24 01/05/24 07:24 01/05/24 07:24
Therapeutic Drug Monitoring
Vancomycin Peak 23.1 ug/ml (18-26) 12/27/23 21:22
Vancomycin Trough 11.0 ug/ml (5-20) 01/04/24 05:24
[2024-01-05 09:17] LABS: Depakane 73.9 ug/ml (50.0-120.0)
--- NOTE | 2024-01-05 09:42 | CM ---
Patient's behavior more calm and appropriate per nursing staff. Spoke with Psychiatry (yesterday) and if patient can remain appropriate he may be able to get another PICC so that he can be discharged and return home if an infusion company can assume
his care.
Plan: Case management will continue to follow and assist with discharge planning. Goal is for patient to return home and continue wound care.
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
[2024-01-05] MEDS: ROXICODONE 5 MG PO ×3 (10:59→21:11)
[2024-01-05] MEDS: NICORETTE 4 MG PO ×3 (12:06→21:19)
--- NOTE | 2024-01-05 12:28 | W.PN.UPDATE ---
Update Note
Progress Note Update
Pt seen, reviewed chart, pt noted to be calmer with increased psych meds. Pt more cooperative overall, had a reportedly good day yesterday with no significant behavior disturbance. Pt now on Depakote 750 mg BID, Klonopin 1 mg TID in addition to
prn order. Pt has Haldol and Cogentin prn orders- not required thus far. Pt sitting on side of bed, somewhat lethargic, slowed, but oriented. Pt calm, cooperative thus far today, although continues to be somewhat manipulative. Pt focused on
having a meeting to discuss going home to complete 6-week course of IV Abx; he hopes to do this in 2 days on Sunday if behavior is stable, as noted by Dr Cuello. Pt states Vraylar is helping, denies side effects. VPA level 73.9 this morning, after
Depakote increased 01/01.
Imp: Schizoaffective d/o, R/o personality disorder. Pt remains on 303 for up to 20 days inpatient effective 12/20. Now calm, cooperative with increased medications
Rec: Continue Vraylar 3 mg daily- increased on 12/30, Depakote- increased to 750 mg BID on 01/01, Klonopin 1 mg TID (increased 01/01) , Lexapro 10 mg Daily, Haldol 2 mg IV prn for agitation/5 mg IM if no IV access for severe agitation. Will monitor
progress through the weekend and review treatment/dispo options on Saturday 01/06.
[2024-01-05 15:43] VITALS: BP 124/71
[2024-01-05] MEDS: LOVENOX 40 MG SC (17:05)
[2024-01-05] MEDS: MELATONIN 10 MG PO (21:12)
[2024-01-05] MEDS: CATAPRES 0.100000000000000006 MG PO (21:12)
[2024-01-05] MEDS: SENOKOT-S PO (21:14)
[2024-01-05 22:54] VITALS: BP 94/54
[2024-01-06] MEDS: ROXICODONE 5 MG PO ×3 (04:31→22:14)
[2024-01-06] MEDS: VANCOCIN 275 MG IV ×2 (06:14→17:50)
[2024-01-06] MEDS: TORADOL 15 MG IV ×2 (06:14→20:32)
[2024-01-06] MEDS: FLUSH (NSS) 2 FLUSH IV (06:15)
[2024-01-06 06:50] VITALS: BP 117/64
[2024-01-06] MEDS: DEPAKOTE (12 HR RELEASE) 750 MG PO ×2 (08:23→20:30)
[2024-01-06] MEDS: SENOKOT-S 1 TABLET PO (08:24)
[2024-01-06] MEDS: LYRICA 150 MG PO ×2 (08:24→20:32)
[2024-01-06] MEDS: LEXAPRO 10 MG PO (08:25)
[2024-01-06] MEDS: NICODERM TRANSDERMAL 21 MG TRANSDERM (08:25)
[2024-01-06] MEDS: NON-FORMULARY ITEM 1 UNIT PO (08:26)
[2024-01-06] MEDS: NON-FORMULARY ITEM 1 UNIT TOPICAL ×2 (08:27→20:32)
[2024-01-06] MEDS: NON-FORMULARY ITEM 3 MG PO (08:28)
[2024-01-06] MEDS: KLONOPIN PO (08:32)
--- NOTE | 2024-01-06 09:16 | PHA.VAN.FU ---
Vancomycin Assessment / Plan
- Assessment
Renal Function: No New Labs Today
In the past 24 hrs, patient has been: Afebrile
- Assessment - Trough Based Monitoring
Trough Value: 11.0on 01/04/24 after 5 consecutive doses
- Dosing Plan
Continue: vancomycin 1250 mg q12h
- Monitoring Plan
Trough Level: will order trough level to ensure regimen is appropriate if discharged
- Follow Up
Pharmacy will continue to follow.
Vancomycin Follow UP
- -
Patient Age: 28
Patient Sex: Male
Vancomycin Day #: 16
Indication: Skin And Soft Tissue
Requesting Provider: Clint
Pertinent Antimicrobial Allergies:
colistin - H/V
Height / Weight:
Height 5 ft 10 in
Actual Weight 79.4 kg
IBW in k
- Vital Signs / Lab Results
Temp Pulse Resp BP Pulse Ox
97.8 F 75 14 117/64 97
01/06/24 06:50 01/06/24 06:50 01/06/24 06:50 01/06/24 06:50 01/06/24 06:50
Therapeutic Drug Monitoring
Vancomycin Peak 23.1 ug/ml (18-26) 12/27/23 21:22
Vancomycin Trough 11.0 ug/ml (5-20) 01/04/24 05:24
[2024-01-06] MEDS: KLONOPIN 1 MG PO ×2 (10:06→22:12)
[2024-01-06] MEDS: NICORETTE 4 MG PO (10:27)
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
--- NOTE | 2024-01-06 11:14 | W.PN.UPDATE ---
Update Note
Progress Note Update
Pt seen, discussed with nursing staff. Pt reportedly very sedated/obtunded this morning. Reviewed medication changes/increases over the past several days. Pt has become more cooperative, but looks more slowed/lethargic. He is awake and oriented
to situation. He does not show any signs of EPS. Klonopin 1 mg, Depakote, and Vraylar were started during this stay, in combination with opioids. Meds increased on 01/01 are now reaching steady state. Pt continues hoping we can discuss his
disposition plan tomorrow. Pt does not show any signs of acute psychosis or lev.
Imp: Schizoaffective d/o, R/o personality disorder. Pt remains on 303 for up to 20 days inpatient effective 12/20. Pt more cooperative with increased medications, now more lethargic
Rec: Will start tapering Klonopin due to excess sedation/combination with opioids. Will continue Vraylar 3 mg daily- increased on 12/30, Depakote- increased to 750 mg BID on 01/01- will recheck VPA level, cont. Lexapro 10 mg Daily
Continue Haldol 2 mg IV prn for agitation/5 mg IM if no IV access for severe agitation- not required over the last couple days.
Will monitor progress through the weekend and review treatment/dispo options on Saturday 01/06.
[2024-01-06] MEDS: DURAGESIC 25 MCG/HR PATCH TRANSDERM (14:24)
[2024-01-06 14:42] VITALS: BP 105/68
[2024-01-06] MEDS: DURAGESIC 25 MCG/HR PATCH 1 PATCH TRANSDERM (14:53)
--- NOTE | 2024-01-06 17:36 | PTCARENOTE ---
Pt has been off and on pretty drowsy today. Afternoon klonopin held due to drowsiness and mom at the bedside also stating not to give it. This RN addressed pt's drowsiness this morning with Dr. Vang and Dr. East. Dr East did come bedside to
assess the patient and talk to him. Otherwise pt has been calm and cooperative today. All VSS. Wound care done per order. Pt is currently sleeping. 1:1 at the bedside. Call canales is within reach.
[2024-01-06] MEDS: LOVENOX 40 MG SC (17:49)
[2024-01-06] MEDS: SENOKOT-S PO (20:47)
--- NOTE | 2024-01-06 22:18 | PTCARENOTE ---
Pt woke up asking for a turkey sandwich, this RN provided Pt with box lunch. Pt yelling 'I want li and mustard!' Explained to Pt calmly that the kitchen is closed and those items are not stocked on the unit. Pt escalating and yelling 'I want li
and mustard! Why are you being crazy!' This RN explained to Pt again that we don't have it and he can order them in the am. Pt attempting to get oob stating 'I will go get it. I want li and mustard!' Redirected Pt, reinforced he is not to get oob
and we don't have them. Pt back into bed. Additional Rns at the bedside and confirmed we don't have those items. Pt opened box lunch, slamming several items on the table. Pt making rude comments to this RN. Pt asking for oxy and to have his wound
care done. Medicated with prn oxy and explained his wound care was done twice today and it is unnecessary at this time. Provided Pt with apple juice and blankets as requested. Reinforced to Pt that we do not tolerate rude or aggressive behavior. Pt
did not say anything. 1:1 observation maintained. Pt laying in bed after eating boxed lunch.
[2024-01-06 22:25] VITALS: BP 122/69
[2024-01-07] MEDS: CATAPRES PO (00:06)
[2024-01-07] MEDS: MELATONIN PO ×2 (00:06→22:39)
[2024-01-07 06:32] LABS: Depakane 99.6 ug/ml (50.0-120.0); Vancomycin Trough 11.3 ug/ml (5-20)
[2024-01-07] MEDS: VANCOCIN 275 MG IV ×2 (06:43→17:24)
[2024-01-07 07:02] VITALS: BP 125/82
--- NOTE | 2024-01-07 08:24 | PHA.VAN.FU ---
Vancomycin Assessment / Plan
- Assessment
Renal Function: Stable
WBC's are: WNL
In the past 24 hrs, patient has been: Afebrile
- Assessment - Trough Based Monitoring
Trough Value: 11.3
Level Today was: Appropriate
Level Comments: drawn ~11.5H after 10th consecutive dose
Patient's level stable with no additional accumulation
- Dosing Plan
Continue: Vanc 1250mg Q12H
- Monitoring Plan
Level(s) appropriate: Recheck trough at minimum of weekly intervals, Repeat sooner for changes in renal function or clinical status
Next Level Due (Date): ~01/13
- Follow Up
Pharmacy will continue to follow.
Vancomycin Follow UP
- -
Patient Age: 28
Patient Sex: Male
Vancomycin Day #: 17
Indication: Skin And Soft Tissue
Requesting Provider: Clint
Pertinent Antimicrobial Allergies:
colistin - H/V
Height / Weight:
Height 5 ft 10 in
Actual Weight 79.4 kg
IBW in k
- Vital Signs / Lab Results
Temp Pulse Resp BP Pulse Ox
98.2 F 78 16 125/82 98
01/07/24 07:02 01/07/24 07:02 01/07/24 07:02 01/07/24 07:02 01/07/24 07:02
Therapeutic Drug Monitoring
Vancomycin Peak 23.1 ug/ml (18-26) 12/27/23 21:22
Vancomycin Trough 11.3 ug/ml (5-20) 01/07/24 05:40
[2024-01-07] MEDS: NICODERM TRANSDERMAL 21 MG TRANSDERM (08:59)
[2024-01-07] MEDS: DEPAKOTE (12 HR RELEASE) 750 MG PO (09:00)
[2024-01-07] MEDS: SENOKOT-S 1 TABLET PO ×2 (09:01→21:31)
[2024-01-07] MEDS: KLONOPIN 1 MG PO (09:01)
[2024-01-07] MEDS: LYRICA 150 MG PO ×2 (09:02→21:31)
[2024-01-07] MEDS: NON-FORMULARY ITEM 1 UNIT PO (09:02)
[2024-01-07] MEDS: LEXAPRO 10 MG PO (09:02)
[2024-01-07] MEDS: PREPARATION H OINTMENT 1 APPLIC RECTAL (09:03)
[2024-01-07] MEDS: NON-FORMULARY ITEM 3 MG PO (09:04)
[2024-01-07] MEDS: NON-FORMULARY ITEM 1 UNIT TOPICAL ×2 (09:05→19:45)
--- NOTE | 2024-01-07 12:18 | W.PN.UPDATE ---
Update Note
Progress Note Update
Pt seen, reviewed with nursing staff, ID professional services consultant, and Hospitalist. Pt continues to be slowed, appears heavily medicated, though remains awake and conversant. Pt c/o poor balance, asking to get up and use walker, had to be redirected, somewhat
impulsive. Pt c/o urinary accident while sitting in bed, posture slumped, drooling. VPA level 99.6 (in safe range, but higher than usual therapeutic level). Afternoon Klonopin was held, pt was very sleepy yesterday pm. No EPS evident. Pt denies
any suicidal or self-harm ideation. He is motivated to get a PICC line or mid-line so that he can go home. He appears to understand the risks of not completing IV Abx course. Reviewed pt's progress; his leg wound is healing and not immediately
life-threatening. Pt is no longer picking at the site; he is cooperating with treatment. Pt has regressed under the stress of being hospitalized, and has inappropriate behavior off and on, but he has not been severely agitated for the past 5 days-
has not required any doses of prn Haldol.
Imp: Schizoaffective d/o, R/o personality disorder. Pt remains on 303, which expires 01/09. Now calm, cooperative, over-sedated with increased medications
Discussed plan to have PICC line placed and arrange for pt to complete IV antibiotics course (until 01/31) at home.
If pt remains cooperative with medical treatment and dispo is arranged, he can be discharged from the 303 prior to it's expiration on 01/09, with Outpatient follow-up at [facility]
Rec: Taper Depakote due to [id number] level and pt's clinical status.
Continue to taper Klonopin due to sedation/risks in combination with opioids.
Continue Vraylar 3 mg daily- increased on 12/30, Lexapro 10 mg Daily
will follow
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
--- NOTE | 2024-01-07 14:16 | CM ---
Placed a call to Jeanette at [facility] to determine if she would be able to take patient as if he will be discharged, he will need to be able to keep his PICC line in. Jeanette stated that he is too high risk for them to take on as a patient.
ID updated as well as CM supervisor counseling and guidance.
Will attempt to refer patient to alternate infusion companies.
Plan: Case management will continue to follow and assist with discharge planning. Patient/staff would like to be able to send patient home however due to risky behaviors Infusion may be hesitant to sign him on.
[2024-01-07 14:24] VITALS: BP 112/72
[2024-01-07] MEDS: NICORETTE 4 MG PO (14:47)
[2024-01-07 15:00] VITALS: BP 128/72
--- NOTE | 2024-01-07 17:21 | W.PN.ID1 ---
Date of Service
Date of Service: January 07, 2024
Today's Communication
- reviewing whether long acting IV therapy may be covered by his insurance and arrange through our facilities
- benefits review submitted
- would not require a PICC line if feasible
Assessment / Plan
Surgical Site Infection - RLE
Osteomyelitis right lower extremity - appears chronic
Hx S. lugdunensis bacteremia here and OR culture previous with S lugdunesis as well by report
- 1 home infusion company has refused to accept patient
- reviewing whether long acting IV therapy may be covered by his insurance and arrange through our facilities
- benefits review submitted
- would not require a PICC line if feasible
- continue vancomycin at this time - goal is at least through 01/31 with IV followed by oral suppression
- PIV in place
- follow clinically
����������������������������������������������������������
Chief Complaint
-: Other (Suspected osteomyelitis right lower extremity)
Subjective / Review of Systems
afebrile
bp stable
PIV in place
we discussed possible long acting antibiotics
Vital Signs / Physical Exam
Vital Signs
Vital Signs
Temp Pulse Resp BP Pulse Ox
98.2 F 66 17 128/72 99
01/07/24 15:00 01/07/24 15:00 01/07/24 15:00 01/07/24 15:00 01/07/24 15:00
Physical Exam
Constitutional: No Acute Distress
Cardiovascular: Regular Rate
Pulmonary: Symmetric
Gastrointestinal: Non Distended
Skin: Warm and Dry; Negative Rash or Jaundice
Wound: Other (fistula has healed superficially - not currently open)
Objective Data
Lab Data
Lab Results
01/02/24 05:08
01/02/24 05:08
ESR 51 mm/hour (0-20) H 12/20/23 00:17
Estimated Creat Clear > 125 ml/min 01/02/24 05:08
Lactic Acid 1.6 mmol/L (0.7-2.0) 12/20/23 00:17
Lactic Acid Cancelled 12/20/23 00:17
Total Bilirubin 0.3 mg/dl (0.2-1.3) 01/02/24 05:08
AST 19 U/L (17-59) 01/02/24 05:08
ALT 13 U/L (0-50) 01/02/24 05:08
Alkaline Phosphatase 112 U/L (38-126) 01/02/24 05:08
C-Reactive Protein 22.70 mg/L (0.0-10.00) H 12/20/23 00:17
Most recent labs reviewed.
Micro Results:
12/20/23 01:25 Blood Culture - Final
Blood/Venous No Growth - Final Report
12/20/23 00:17 Blood Culture - Final
Blood/Venous No Growth - Final Report
12/20/23 11:39 Wound Culture - Final
Leg - Right Enterococcus faecalis
Gram Stain - Final
12/20/23 16:18 Wound Culture - Final
Tibia Gram Stain - Final
12/20/23 08:37 MRSA Screen - Final
Nose No Methicillin Resistant Staphylococcus aureus isolated.
[2024-01-07] MEDS: KLONOPIN 0.5 MG PO (17:25)
[2024-01-07] MEDS: LOVENOX 40 MG SC (17:26)
[2024-01-07] MEDS: ROXICODONE 5 MG PO ×2 (17:45→21:48)
--- NOTE | 2024-01-07 18:32 | PTCARENOTE ---
Patient impulsive and verbally abuse at times. Overall patient cooperative and follows directions. Patient c/o 10 RLE pain, Roxicodone given with good relief. Patient ambulating to bathroom with assist x1 and walker. Patient is unsteady.
[2024-01-07 21:29] VITALS: BP 124/81
[2024-01-07] MEDS: DEPAKOTE (12 HR RELEASE) 500 MG PO (21:30)
[2024-01-07] MEDS: CATAPRES 0.100000000000000006 MG PO (21:31)
[2024-01-07] MEDS: KLONOPIN PO (22:38)
[2024-01-07 23:15] VITALS: BP 110/65
[2024-01-08] MEDS: VANCOCIN 275 MG IV ×2 (05:16→17:51)
[2024-01-08 06:17] LABS: Hematocrit 28.9 % (39.0-52.0); Hemoglobin 8.5 g/dL (13.0-18.0); Mean Corp Hgb Conc. 29.4 g/dL (33.0-37.0); Mean Corpuscular Hgb 23.3 pg (27.0-31.0); Mean Corpuscular Volume 79.2 fL (80.0-94.0); Mean Platelet Volume 9.7 fL (7.4-10.4); Platelet Count 400 10^3/uL (130-400); Red Blood Cell Count 3.65 10^6/uL (4.70-6.10); Red Cell Dist. Width 19.1 % (11.5-14.5); White Blood Cell Count 6.6 10^3/uL (4.8-10.8)
[2024-01-08 06:43] LABS: ALT (SGPT) 14 U/L (0-50); AST (SGOT) 17 U/L (17-59); Albumin 3.4 g/dl (3.5-5.0); Alkaline Phosphatase 90 U/L (38-126); Blood Urea Nitrogen 11 mg/dl (9-20); Calcium 9.2 mg/dl (8.4-10.2); Carbon Dioxide 25 mmol/L (22-30); Chloride 106 mmol/L (98-107); Estimated Creatinine Clearance > 125 ml/min; Glucose 90 mg/dl (70-99); Potassium 4.5 mmol/L (3.5-5.1); Sodium 138 mmol/L (135-145); Total Bilirubin 0.1 mg/dl (0.2-1.3); Total Protein 6.3 g/dl (6.3-8.2); eGFR > 60.00
[2024-01-08 07:26] VITALS: BP 106/48
--- NOTE | 2024-01-08 09:02 | PHA.VAN.FU ---
Vancomycin Assessment / Plan
- Assessment
Renal Function: Stable
WBC's are: WNL
In the past 24 hrs, patient has been: Afebrile
- Dosing Plan
Continue: Vanc 1250mg Q12H
- Monitoring Plan
Level(s) appropriate: Recheck trough at minimum of weekly intervals, Repeat sooner for changes in renal function or clinical status
Next Level Due (Date): ~01/13
- Follow Up
Pharmacy will continue to follow.
Vancomycin Follow UP
- -
Patient Age: 28
Patient Sex: Male
Vancomycin Day #: 18
Indication: Skin And Soft Tissue
Requesting Provider: Clint
Pertinent Antimicrobial Allergies:
colistin - H/V
Height / Weight:
Height 5 ft 10 in
Actual Weight 79.4 kg
IBW in k
- Vital Signs / Lab Results
Temp Pulse Resp BP Pulse Ox
98.6 F 87 16 106/48 98
01/08/24 07:26 01/08/24 07:26 01/08/24 07:26 01/08/24 07:26 01/08/24 07:26
Lab Results - Hematology
01/08/24
05:57
WBC 6.6
Lab Results - Chemistry
01/08/24
05:57
BUN 11
Creatinine 0.7
Estimated Creat Clear > 125
Albumin 3.4 L
Therapeutic Drug Monitoring
Vancomycin Peak 23.1 ug/ml (18-26) 12/27/23 21:22
Vancomycin Trough 11.3 ug/ml (5-20) 01/07/24 05:40
[2024-01-08] MEDS: PREPARATION H OINTMENT 1 APPLIC RECTAL (09:18)
[2024-01-08] MEDS: NON-FORMULARY ITEM 2 UNIT PO (09:18)
[2024-01-08] MEDS: NON-FORMULARY ITEM 1 UNIT TOPICAL ×2 (09:19→20:03)
[2024-01-08] MEDS: NICODERM TRANSDERMAL 21 MG TRANSDERM (09:19)
[2024-01-08] MEDS: LYRICA 150 MG PO ×2 (09:20→20:03)
[2024-01-08] MEDS: DEPAKOTE (12 HR RELEASE) 500 MG PO ×2 (09:20→20:03)
[2024-01-08] MEDS: KLONOPIN 0.5 MG PO ×2 (09:20→16:00)
[2024-01-08] MEDS: LEXAPRO 10 MG PO (09:20)
[2024-01-08] MEDS: SENOKOT-S 1 TABLET PO ×2 (09:20→20:03)
[2024-01-08] MEDS: NON-FORMULARY ITEM 3 MG PO (09:21)
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
--- NOTE | 2024-01-08 13:25 | W.PN.ID1 ---
Date of Service
Date of Service: January 08, 2024
Today's Communication
- pursing multiple home treatment options
- my office is working on prior authorization for dalbavancin - his insurance will likely cover it on benefits review
- continue vancomycin at this time - goal is at least through 01/31 with IV or long acting lipoglycopeptide followed by oral suppression
Assessment / Plan
Surgical Site Infection - RLE
Osteomyelitis right lower extremity - appears chronic
Hx S. lugdunensis bacteremia here and OR culture previous with S lugdunesis as well by report
- 1 home infusion company has refused to accept patient; other referrals being sent
- dalbavancin likely covered by his insurance and would be an alternative long acting lipoglycopeptide - a prior authorization is required and is being completed by my office.
- would not require a PICC line if feasible
- pursing multiple home treatment options
- continue vancomycin at this time - goal is at least through 01/31 with IV or long acting lipoglycopeptide followed by oral suppression
- PIV in place
- follow clinically
����������������������������������������������������������
Chief Complaint
-: Other (Suspected osteomyelitis right lower extremity)
Subjective / Review of Systems
afebrile
bp stable
fistuale healing
piv in place
frustrated
Vital Signs / Physical Exam
Vital Signs
Vital Signs
Temp Pulse Resp BP Pulse Ox
98.6 F 87 16 106/48 98
01/08/24 07:26 01/08/24 07:26 01/08/24 07:26 01/08/24 07:26 01/08/24 07:26
Physical Exam
Constitutional: No Acute Distress
Cardiovascular: Regular Rate and S1/S2; Negative Murmur or Rub
Pulmonary: Clear and Symmetric; Negative Wheezes or Rales
Gastrointestinal: Soft, Non Tender, Non Distended and Normal Bowel Sounds
Skin: Warm and Dry; Negative Rash or Jaundice
Wound: Other (surgical site healing)
Neurological: Awake and Alert
Objective Data
Lab Data
Lab Results
01/08/24 05:57
01/08/24 05:57
ESR 51 mm/hour (0-20) H 12/20/23 00:17
Estimated Creat Clear > 125 ml/min 01/08/24 05:57
Lactic Acid 1.6 mmol/L (0.7-2.0) 12/20/23 00:17
Lactic Acid Cancelled 12/20/23 00:17
Total Bilirubin 0.1 mg/dl (0.2-1.3) L 01/08/24 05:57
AST 17 U/L (17-59) 01/08/24 05:57
ALT 14 U/L (0-50) 01/08/24 05:57
Alkaline Phosphatase 90 U/L (38-126) 01/08/24 05:57
C-Reactive Protein 22.70 mg/L (0.0-10.00) H 12/20/23 00:17
Most recent labs reviewed.
Micro Results:
12/20/23 01:25 Blood Culture - Final
Blood/Venous No Growth - Final Report
12/20/23 00:17 Blood Culture - Final
Blood/Venous No Growth - Final Report
12/20/23 11:39 Wound Culture - Final
Leg - Right Enterococcus faecalis
Gram Stain - Final
12/20/23 16:18 Wound Culture - Final
Tibia Gram Stain - Final
12/20/23 08:37 MRSA Screen - Final
Nose No Methicillin Resistant Staphylococcus aureus isolated.
Care Review
Plan reviewed with: Physician (Dr Gaona, Dr Mesfin MOSS)
[2024-01-08] MEDS: ROXICODONE 5 MG PO ×2 (13:43→17:49)
--- NOTE | 2024-01-08 13:51 | W.PN.UPDATE ---
Update Note
Progress Note Update
Pt seen, more alert today, though still somewhat slowed, with blunted affect. Pt upset at mother on the phone, complains she will not come in until 7 pm. Pt repeatedly asking his mother to be called, wants her to come at 5 pm, still somewhat
regressed in affect and behavior. PICC line was not placed; ID telesales consultant looking into treatment option that allows for once a week infusion. Pt cooperative with medical recommendations, not showing any self-harmful behaviors. Pt's affect is
closer to baseline state, known to me from outpatient follow-up at [facility], still mildly labile but redirectable. No signs of active psychosis or acute mood disturbance. Pt denies any SI. He is preoccupied with ongoing dynamic with his mother.
Klonopin and Depakote were tapered, and Klonopin was held last night due to excess sedation. Pt is noted not to be a good candidate for PICC line and home infusions due to behavioral history; weekly infusion option is being pursued.
Imp: Schizoaffective d/o, R/o personality disorder; pt now more calm, cooperative with medical care, somewhat over-sedated on psychotropic medications
Pt appears psych stable to be discharged from the [facility] (expires on 01/09), with Outpatient follow-up at [facility], when medically cleared
Rec: Continue Vraylar 3 mg daily- increased on 12/30, continue Lexapro 10 mg Daily, Depakote 500 mg BID, Klonopin 0.5 mg TID, Clonidine 0.1 mg HS, melatonin
Return to Outpatient follow-up at [facility]
[2024-01-08] MEDS: HALDOL 5 MG IM (14:16)
--- NOTE | 2024-01-08 14:56 | PTCARENOTE ---
[employer]prox 1345 pt became increasingly angry and screaming. IM haldol given as patient currently has has no IV site.
[2024-01-08 15:37] VITALS: BP 105/65
--- NOTE | 2024-01-08 16:31 | CM ---
Spoke with ID this am, faxed information over to [facility] Patient assistance program. Faxed script over to [facility] after speaking with Amador who stated that she will review information and get back in touch with CM to relay whether they
can accept patient or not.
Placed a call to [facility] and faxed script for both doses of ABX. Will await determination regarding whether they can provide to patient if [facility] is unable to retake.
Plan: Case management will continue to follow and assist with discharge planning. Will await determinations.
[2024-01-08] MEDS: LOVENOX 40 MG SC (17:41)
[2024-01-08] MEDS: HALDOL 2 MG IV (20:08)
--- NOTE | 2024-01-08 20:30 | PTCARENOTE ---
At approximately 1930 pt became very agitated and angry. Pt yelling and screaming about how long it was taking for his Vancocin to administer. Pt also yelling about why his mother had not shown up to visit. Around 1999 pt mother arrived at bedside.
Pt continued to yell and scream stating 'I want to go home my fucking stomach hurts', 'They told me I could leave today, take me home', and 'Get me the fuck out of here'. Pt given IV haldol, see MAR for administration. Pt back in bed. 1:1 at
bedside. Safe environment maintained. Call canales within reach.
[2024-01-08 21:32] VITALS: BP 108/63
--- NOTE | 2024-01-08 23:00 | PTCARENOTE ---
Pt requesting abad with his 0 medications. Pt drowsy and unable to stay awake. VSS. 2200 meds held along PRN abad. Pt currently sleeping. 1:1 at the bedside. Safe environment maintained. Call canales within reach.
[2024-01-08] MEDS: KLONOPIN PO (23:50)
[2024-01-08] MEDS: CATAPRES PO (23:50)
[2024-01-08] MEDS: MELATONIN PO (23:51)
[2024-01-09] MEDS: VANCOCIN 275 MG IV ×2 (05:23→17:36)
[2024-01-09 07:34] VITALS: BP 97/53
--- NOTE | 2024-01-09 08:37 | PHA.VAN.FU ---
Addendum entered and electronically signed by Anh Mesa RPH 01/09/24 12:31:
Patient to be discharged to receive dalbavancin x2 doses as an outpatient starting Sunday.
Tentative plan is to discharge after AM vancomycin dose. Discussed with ID and will stop Vanc 1250mg Q12H after tonight's dose and give a bridging dose of vanc 2000mg tomorrow morning prior to discharge. This should help maintain time above MARIA ELENA
for longer period of time without increasing risk for toxicity as subsequent doses are not anticipated.
If discharge plans are altered, will re-evaluate vancomycin dosing regimen tomorrow.
Original Note:
Vancomycin Assessment / Plan
- Assessment
Renal Function: No New Labs Today
In the past 24 hrs, patient has been: Afebrile
- Dosing Plan
Continue: Vanc 1250mg Q12H
- Monitoring Plan
Level(s) appropriate: Recheck trough at minimum of weekly intervals, Repeat sooner for changes in renal function or clinical status
Next Level Due (Date): ~01/13
- Follow Up
Pharmacy will continue to follow.
Vancomycin Follow UP
- -
Patient Age: 28
Patient Sex: Male
Vancomycin Day #: 19
Indication: Skin And Soft Tissue
Requesting Provider: Clint
Pertinent Antimicrobial Allergies:
colistin - N/V
Height / Weight:
Height 5 ft 10 in
Actual Weight 79.4 kg
IBW in k
- Vital Signs / Lab Results
Temp Pulse Resp BP Pulse Ox
97.5 F 74 16 97/53 96
01/09/24 07:34 01/09/24 07:34 01/09/24 07:34 01/09/24 07:34 01/08/24 21:32
Lab Results - Hematology
01/08/24
05:57
WBC 6.6
Lab Results - Chemistry
01/08/24
05:57
BUN 11
Creatinine 0.7
Estimated Creat Clear > 125
Albumin 3.4 L
Therapeutic Drug Monitoring
Vancomycin Peak 23.1 ug/ml (18-26) 12/27/23 21:22
Vancomycin Trough 11.3 ug/ml (5-20) 01/07/24 05:40
[2024-01-09] MEDS: NICODERM TRANSDERMAL 21 MG TRANSDERM (08:55)
[2024-01-09] MEDS: KLONOPIN 0.5 MG PO ×2 (09:00→15:44)
[2024-01-09] MEDS: LEXAPRO 10 MG PO (09:00)
[2024-01-09] MEDS: DEPAKOTE (12 HR RELEASE) 500 MG PO ×2 (09:00→19:46)
[2024-01-09] MEDS: NON-FORMULARY ITEM 2 UNIT PO (09:00)
[2024-01-09] MEDS: SENOKOT-S PO ×2 (09:00→09:10)
[2024-01-09] MEDS: LYRICA 150 MG PO ×2 (09:00→19:45)
[2024-01-09] MEDS: NON-FORMULARY ITEM 1 UNIT TOPICAL ×2 (09:01→19:46)
[2024-01-09] MEDS: NON-FORMULARY ITEM 3 MG PO (09:02)
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
[2024-01-09] MEDS: ROXICODONE 5 MG PO ×2 (12:12→17:35)
--- NOTE | 2024-01-09 12:47 | W.PN.UPDATE ---
Update Note
Progress Note Update
patient seen chart reviewed. mother at bedside and with nursing. the patient is very impatient to go home and periodically raises his voice when expressing his wish to be discharged [facility]. when i initially saw him i had spoken to dr shore about
the tubbs to get insurance approval for dalbavancin. spoke with patric about the possibility that it would be approved in the next several days and plans could be made for his discharge. he did agree to wait til tomorrow which would be the day his
commitment expires. discussed with him and mom the impact of his psych meds and pain meds. mom expressed concern re sedation. we agreed that he should not take klonopin if he is sedated...nursing had held it yesterday as the order 'hold for
sedation' had already been entered in the past. explained to patric that bzp and opiates can be an unsafe combination in that they both can depress respirations and need to be used wisely. shortly after i left them recevied notice that the
dalbavancin had been approved and he could indeed by dc tomorrow with augmented dose of vancomycin tomorrow then infusions on this sunday and next with followup with dr shore. spoke with patient and mom subsequently. hopefully the next 24
hours will pass smoothly. encouraged patric to try and be patient for one more day and dc tomorrow. did not change any of this psych meds. will ask [facility] personnel to assist in getting prior auth for vraylar which patric feels has been helpful. up
until now he has received samples.
[2024-01-09] MEDS: HALDOL 2 MG IV (12:57)
--- NOTE | 2024-01-09 14:09 | CM ---
Reviewed the chart notes and spoke with the patient and his mother at the bedside. Plan is for discharge tomorrow to home and will return on Sunday to infusion center to receive first of two doses of abx. Patient will then return next Sunday for
final abx dose. Patient's mother will provide transportation. Medication has been approved through ID office, per mom. CM continues to be available to patient/family and is monitoring medical plan for needs at discharge.
Plan: Discharge to [facility] with no additional needs. Discussed possible VN, patient and mother declined.
[2024-01-09] MEDS: DURAGESIC 25 MCG/HR PATCH 1 PATCH TRANSDERM (14:13)
[2024-01-09] MEDS: PREPARATION H OINTMENT 1 APPLIC RECTAL (14:36)
--- NOTE | 2024-01-09 16:11 | W.PN.ID1 ---
Date of Service
Date of Service: January 09, 2024
Today's Communication
- prior authorization obtained for dalbavacin; scripts sent to [facility]
- dalbavancin will be sent to my office and my staff will bring up to [facility]
- continue vanc 1.25 gm IV q12 today, tomorrow AM last dose will be vanc 2 gm; then sunday he will get dalbavancin 1.5 gm; then 8 days later second dose will again be dalbavancin 1.5 gm; he will be effectively covered for 8 weeks
- follow up with me in about 7 weeks
Assessment / Plan
Surgical Site Infection - RLE
Osteomyelitis right lower extremity - appears chronic
Hx S. lugdunensis bacteremia here and OR culture previous with S lugdunesis as well by report
- prior authorization obtained for dalbavacin; scripts sent to [facility]
- dalbavancin will be sent to my office and my staff will bring up to [facility]
- continue vanc 1.25 gm IV q12 today, tomorrow AM last dose will be vanc 2 gm; then sunday he will get dalbavancin 1.5 gm; then 8 days later second dose will again be dalbavancin 1.5 gm; he will be effectively covered for 8 weeks
- follow up with me in about 7 weeks
����������������������������������������������������������
Chief Complaint
-: Other (Suspected osteomyelitis right lower extremity)
Subjective / Review of Systems
sleeping - not disturbed
discussed with dr mari - [facility] [place]
Vital Signs / Physical Exam
Vital Signs
Vital Signs
Temp Pulse Resp BP Pulse Ox
97.5 F 74 16 97/53 96
01/09/24 07:34 01/09/24 07:34 01/09/24 07:34 01/09/24 07:34 01/08/24 21:32
Physical Exam
Constitutional: No Acute Distress
Cardiovascular: Regular Rate
Pulmonary: Symmetric
Neurological: Negative Awake
Objective Data
Lab Data
Lab Results
01/08/24 05:57
01/08/24 05:57
ESR 51 mm/hour (0-20) H 12/20/23 00:17
Estimated Creat Clear > 125 ml/min 01/08/24 05:57
Lactic Acid 1.6 mmol/L (0.7-2.0) 12/20/23 00:17
Lactic Acid Cancelled 12/20/23 00:17
Total Bilirubin 0.1 mg/dl (0.2-1.3) L 01/08/24 05:57
AST 17 U/L (17-59) 01/08/24 05:57
ALT 14 U/L (0-50) 01/08/24 05:57
Alkaline Phosphatase 90 U/L (38-126) 01/08/24 05:57
C-Reactive Protein 22.70 mg/L (0.0-10.00) H 12/20/23 00:17
Most recent labs reviewed.
Micro Results:
12/20/23 01:25 Blood Culture - Final
Blood/Venous No Growth - Final Report
12/20/23 00:17 Blood Culture - Final
Blood/Venous No Growth - Final Report
12/20/23 11:39 Wound Culture - Final
Leg - Right Enterococcus faecalis
Gram Stain - Final
12/20/23 16:18 Wound Culture - Final
Tibia Gram Stain - Final
12/20/23 08:37 MRSA Screen - Final
Nose No Methicillin Resistant Staphylococcus aureus isolated.
Care Review
Plan reviewed with: Physician (Dr Cuello, Dr Toure, Dr Mari - [email or web address])
[2024-01-09] MEDS: LOVENOX 40 MG SC (17:37)
[2024-01-09 18:35] VITALS: BP 105/55
[2024-01-09] MEDS: SENOKOT-S 1 TABLET PO (19:46)
[2024-01-09 22:57] VITALS: BP 121/73
[2024-01-09] MEDS: NICORETTE 4 MG PO (23:29)
[2024-01-10] MEDS: KLONOPIN 0.5 MG PO ×2 (00:04→08:20)
[2024-01-10] MEDS: MELATONIN 10 MG PO (00:04)
[2024-01-10] MEDS: CATAPRES 0.100000000000000006 MG PO (00:05)
[2024-01-10] MEDS: VANCOCIN 540 MG IV (05:44)
[2024-01-10 07:00] VITALS: BP 94/52
[2024-01-10] MEDS: DEPAKOTE (12 HR RELEASE) 500 MG PO (08:12)
[2024-01-10] MEDS: NON-FORMULARY ITEM 1 UNIT PO (08:12)
[2024-01-10] MEDS: NICODERM TRANSDERMAL 21 MG TRANSDERM (08:13)
[2024-01-10] MEDS: LEXAPRO 10 MG PO (08:13)
[2024-01-10] MEDS: LYRICA 150 MG PO (08:13)
[2024-01-10 08:15] VITALS: BP 100/60
[2024-01-10] MEDS: NON-FORMULARY ITEM 3 MG PO (08:18)
[2024-01-10] MEDS: SENOKOT-S PO (08:20)
[2024-01-10] MEDS: NON-FORMULARY ITEM 1 UNIT TOPICAL (08:23)
--- NOTE | 2024-01-10 10:34 | CM ---
Addendum entered by MO Ravi 01/10/24 11:53:
Medications faxed.
Original Note:
Reviewed chart, patient per ID, attending and Psychiatry will be medically cleared to go today as long as plan is in place for patient to obtain his IV ABX at the outpatient infusion center.
Received TT from Sharmaine Cespedes Financial Specimen Technician at [facility] who stated that 'Drug is coming from a specialty pharmacy. They will not schedule delivery of the drug until patient calls to give consent to delivery the drug to [facility].
Would someone be able to have the patient give consent to deliver the drug to us. [phone]'
Met with patient at bedside. Placed a call to [facility] and spoke with a installation service representative named, Kasandra, who stated that they have the first three doses of the medication and consent was already obtained/not needed. The next three doses will be
shipped to their facility [facility] and they will provide to patient through [facility], outpatient so therefore they will need his permission for just the three doses.
To mitigate confusion, as it appeared that pharmacy and ID information not aligned, placed a call to Dr. Jaramillo who stated that ID already has the first three doses of ABX and they do not need his permission. The next 3 doses will be delivered
to their office and to her knowledge, she does not believe that patient would need to provide permission.
Spoke again with Sharmaine who stated that she did need patient to confirm that he is receptive to receipt of medication when it becomes available, as it is so expensive. Sharmaine came up to patient's room at CM request (she did offer) to assist with
process as there was too much conflicting and confusing information . Psychiatry in room as well. Placed a call to number above and patient spoke with a installation service representative who obtained patient's information and recorded his response of willingness to
accept medication. Patient was very compliant and provided all the appropriate answers.
Medication list was requested by pharmacy, faxed to [phone]. Will fax medications.
Patient stated that his mother is coming at 12:30 to transport patient home from acute care.
All parties have agreed that all information has been provided/obtained and that patient can go forward obtaining his medications from [facility]. He received a dose already today per ID.
Will fax all medications that patient is currently taking to [phone].
Attending clearing patient for discharge. Psychiatry also clearing.
Patient updated about his discharge and is being cooperative and calm.
Plan: Case management will continue to follow and assist with discharge planning. Patient to return home with his mother and father and receive remainder of ABX treatments as an outpatient which he agreed to.
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
--- NOTE | 2024-01-10 11:35 | W.DS.TRANS ---
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
-
Discharge Instructions:
Discharge Diagnosis/Procedures # Surgical Site Infection with drainage from RLE
# Hx infected hardware RLE; most recent surgery
11/20/23 with new permanent kirby placed
# Chronic Pain
Activity As tolerated
Instructions:
Stand-Alone Forms:
Changes to Home Medications: Yes
Discharge Medications:
DC Medications w/original date entered in [employer]
clonidine HCl 0.1 mg tablet,extended release,12 hr 0.1 mg PO HS mental health 12/20/23
meloxicam 15 mg tablet 15 mg PO DAILYPRN PRN mild pain 12/20/23
pregabalin 150 mg capsule (Lyrica) 150 mg PO BID 12/21/23
Vraylar 3 g PO DAILY #1 cap 01/10/24
acetaminophen 325 mg tablet 650 mg (2 x 325 mg) PO Q6HPRN PRN mild pain/ fever>100.5F #90 tabs 01/10/24
clonazepam 0.5 mg tablet 0.5 mg PO TID 3 days #9 tabs 01/10/24
divalproex 500 mg tablet,delayed release 500 mg PO BID 30 days #60 tabs 01/10/24
escitalopram oxalate 10 mg tablet (Lexapro) 10 mg PO DAILY Depression #0 tabs 01/10/24
melatonin 5 mg tablet 10 mg (2 x 5 mg) PO HS 30 days #60 tabs 01/10/24
nicotine (polacrilex) 2 mg gum 4 mg PO Q2HPRN PRN nicotine craving #100 ea 01/10/24
nicotine 21 mg/24 hr daily transdermal patch 21 mg transdermal DAILY #28 ea 01/10/24
oxycodone 5 mg tablet 5 mg PO Q4HPRN PRN severe pain #20 tabs 01/10/24
white petrolatum 42 % topical ointment (Hydrophor) 1 applic topical Q4H PRN LIPS AND DRY SKIN AREAS #454 grams 01/10/24
Home Medication Changes
acetaminophen 325 mg tablet 650 mg (2 x 325 mg) PO Q6HPRN PRN mild pain/ fever>100.5F #90 tabs 01/10/24
clonazepam 0.5 mg tablet 0.5 mg PO TID 3 days #9 tabs 01/10/24
divalproex 500 mg tablet,delayed release 500 mg PO BID 30 days #60 tabs 01/10/24
escitalopram oxalate 10 mg tablet (Lexapro) 10 mg PO DAILY Depression #0 tabs 01/10/24
melatonin 5 mg tablet 10 mg (2 x 5 mg) PO HS 30 days #60 tabs 01/10/24
nicotine (polacrilex) 2 mg gum 4 mg PO Q2HPRN PRN nicotine craving #100 ea 01/10/24
nicotine 21 mg/24 hr daily transdermal patch 21 mg transdermal DAILY #28 ea 01/10/24
oxycodone 5 mg tablet 5 mg PO Q4HPRN PRN severe pain #20 tabs 01/10/24
white petrolatum 42 % topical ointment (Hydrophor) 1 applic topical Q4H PRN LIPS AND DRY SKIN AREAS #454 grams 01/10/24
Pending Results: No
--- NOTE | 2024-01-10 11:37 | W.PN.UPDATE ---
Update Note
Progress Note Update
patient seen chart reviewed. spoke with nursing case mgt and with arianna venegas from infusion center. we participated in a phone call with the pharmacy which required some procedure which took about a half hour for them to get 'permission' from patric
to send the meds and they asked a barrage of other questions which were seemingly irrelevant but in any case the interview was completed. patric is saying all the right things about his willingness to cooperate with the infusions and infectious
disease treatment no changes made in his psych meds today which are melatonin 10 mg q day lexapro 10 mg q d vraylar 3 mg q day klonopin o.5 mg tid and depakote 500 mg bid. his would get a depakote level in the near future. he will see dr pimentel
as an out pt and told me he has an appt this week. i will check on this. i will also start the process of a prior auth for the vraylar at [facility] later today. in the meantime we can supply smaples from the [facility] pharmacy.
[2024-01-10 12:26] VITALS: BP 117/71
--- NOTE | 2024-01-10 12:34 | W.PN.ID1 ---
Date of Service
Date of Service: January 10, 2024
Today's Communication
- had last dose of vancomycin today, then sunday he will get dalbavancin 1.5 gm; then 8 days later second dose will again be dalbavancin 1.5 gm; he will be effectively covered for 8 weeks
- follow up with me in about 7 weeks
- encouraged patient/family to call PRN
Assessment / Plan
Surgical Site Infection - RLE
Osteomyelitis right lower extremity - appears chronic
Hx S. lugdunensis bacteremia here and OR culture previous with S lugdunesis as well by report
- prior authorization obtained for dalbavacin; scripts sent to [facility]
- dalbavancin will be sent to my office and my staff will bring up to [facility]
- had last dose of vancomycin today, then sunday he will get dalbavancin 1.5 gm; then 8 days later second dose will again be dalbavancin 1.5 gm; he will be effectively covered for 8 weeks
- follow up with me in about 7 weeks
- encouraged patient/family to call PRN
����������������������������������������������������������
Chief Complaint
-: Other (Suspected osteomyelitis right lower extremity)
Subjective / Review of Systems
afebrile
bp stable
no complaints
Vital Signs / Physical Exam
Vital Signs
Vital Signs
Temp Pulse Resp BP Pulse Ox
97.5 F 82 16 117/71 100
01/10/24 12:26 01/10/24 12:26 01/10/24 12:26 01/10/24 12:26 01/10/24 12:26
Physical Exam
Constitutional: No Acute Distress
Cardiovascular: Regular Rate
Pulmonary: Symmetric and Non Labored
Extremities: Other (suture line healing - no erythema, warmth or drainage)
Objective Data
Lab Data
Lab Results
01/08/24 05:57
01/08/24 05:57
ESR 51 mm/hour (0-20) H 12/20/23 00:17
Estimated Creat Clear > 125 ml/min 01/08/24 05:57
Lactic Acid 1.6 mmol/L (0.7-2.0) 12/20/23 00:17
Lactic Acid Cancelled 12/20/23 00:17
Total Bilirubin 0.1 mg/dl (0.2-1.3) L 01/08/24 05:57
AST 17 U/L (17-59) 01/08/24 05:57
ALT 14 U/L (0-50) 01/08/24 05:57
Alkaline Phosphatase 90 U/L (38-126) 01/08/24 05:57
C-Reactive Protein 22.70 mg/L (0.0-10.00) H 12/20/23 00:17
Most recent labs reviewed.
Micro Results:
12/20/23 01:25 Blood Culture - Final
Blood/Venous No Growth - Final Report
12/20/23 00:17 Blood Culture - Final
Blood/Venous No Growth - Final Report
12/20/23 11:39 Wound Culture - Final
Leg - Right Enterococcus faecalis
Gram Stain - Final
12/20/23 16:18 Wound Culture - Final
Tibia Gram Stain - Final
12/20/23 08:37 MRSA Screen - Final
Nose No Methicillin Resistant Staphylococcus aureus isolated.
Care Review
Plan reviewed with: Phys[place] [place]
== END 2024-01-10 12:48 | disposition home or self-care (01) | DRG 863 ==
LOC: 3 WEST ACU 02:18
PROVIDERS: Internal Medicine; Psychiatry & Neurology Psychiatry; Student in an Organized Health Care Education/Training Program; ADMITTING PHYSICIAN Internal Medicine; ATTENDING PHYSICIAN Internal Medicine; CONSULT PHYSICIAN Internal Medicine Infectious Disease; CONSULT PHYSICIAN Podiatrist; CONSULT PHYSICIAN Psychiatry & Neurology Psychiatry; EMERGENCY PHYSICIAN Emergency Medicine
DX: T81.41XA Infection following a procedure, superficial incisional surgical site, initial encounter (principal); M86.661 Other chronic osteomyelitis, right tibia and fibula; B95.2 Enterococcus as the cause of diseases classified elsewhere; Y83.8 Other surgical procedures as the cause of abnormal reaction of the patient, or of later complication, without mention of misadventure at the time of the procedure; F25.9 Schizoaffective disorder, unspecified; G89.29 Other chronic pain; F43.10 Post-traumatic stress disorder, unspecified; D50.9 Iron deficiency anemia, unspecified
CPT/HCPCS: 73590; 73701; 80048; 80053; 80164; 80202; 80306; 80307; 81003; 82607; 82728; 82746; 82962; 83540; 83550; 83605; 83735; 85025; 85027; 85652; 86140; 87040; 87070; 87077; 87147; 87186; 87205; 93005; 93971; 96365; 97110; 97116; 97163; 97167; 97530; 97535; 99284; J2916; Q9967

== ENCOUNTER 2024-01-11 13:17 | Outpatient (RCR) | payer OTHER, SELFPAY ==
[2024-01-11] MEDS: DALVANCE 575 MG IV (13:44)
[2024-01-11 13:52] VITALS: BP 102/57
== END 2024-01-29 23:59 | disposition home or self-care (01) ==
LOC: OID 13:17
PROVIDERS: ATTENDING PHYSICIAN Student in an Organized Health Care Education/Training Program
DX: M86.8X6 Other osteomyelitis, lower leg (principal); F20.9 Schizophrenia, unspecified
CPT/HCPCS: 96365; J0875

== ENCOUNTER 2024-01-14 12:42 | Emergency (ER) | payer OTHER, SELFPAY ==
[2024-01-14 12:49] VITALS: BP 150/83
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
[2024-01-14] MEDS: ROXICODONE 5 MG PO (14:49)
[2024-01-14] MEDS: KLONOPIN 0.5 MG PO ×2 (14:49→20:20)
[2024-01-14] MEDS: LYRICA 150 MG PO (14:49)
[2024-01-14] MEDS: LEXAPRO 10 MG PO (14:49)
[2024-01-14] MEDS: MOBIC 15 MG PO (14:49)
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
[2024-01-14] MEDS: NICORETTE 2 MG PO (20:20)
[2024-01-14] MEDS: CATAPRES 0.100000000000000006 MG PO (21:22)
== END 2024-01-14 23:09 ==
LOC: EMR 12:42
PROVIDERS: EMERGENCY PHYSICIAN Emergency Medicine
DX: F20.9 Schizophrenia, unspecified (principal); R45.851 Suicidal ideations; M54.9 Dorsalgia, unspecified; W06.XXXA Fall from bed, initial encounter
CPT/HCPCS: 99285; 72100

== ENCOUNTER 2024-03-25 16:39 | Inpatient (IN) | payer OTHER, SELFPAY ==
[2024-03-25] VITALS (9 sets, daily range): BP systolic 91–124; BP diastolic 49–78; BMI 26.1
[2024-03-25 03:41] LABS: % Basophils 0.4 % (0-2); % Eosinophils 3.9 % (0-6); % Immature Granulocytes 0.3 % (0-0.5); % Lymphocytes 14.4 % (20.5-51.1); % Monocytes 10.6 % (1.7-9.3); % Neutrophils 70.4 % (42.2-75.2); Absolute Basophils 0.1 10^3/uL (0-0.2); Absolute Eosinophils 0.5 10^3/uL (0-0.7); Absolute Lymphocytes 1.7 10^3/uL (1.2-3.4); Absolute Monocytes 1.2 10^3/uL (0.1-0.6); Hemoglobin 9.8 g/dL (13.0-18.0); Mean Corp Hgb Conc. 31.6 g/dL (33.0-37.0); Mean Corpuscular Hgb 22.1 pg (27.0-31.0); Mean Corpuscular Volume 69.8 fL (80.0-94.0); Mean Platelet Volume 9.1 fL (7.4-10.4); Nucleated Red Blood Cells % 0 % (-); Platelet Count 488 10^3/uL (130-400); Red Blood Cell Count 4.44 10^6/uL (4.70-6.10); Red Cell Dist. Width 17.3 % (11.5-14.5); White Blood Cell Count 11.4 10^3/uL (4.8-10.8)
[2024-03-25 03:59] LABS: Lactic Acid 0.8 mmol/L (0.7-2.0)
[2024-03-25 04:15] LABS: ALT (SGPT) 12 U/L (0-50); AST (SGOT) 16 U/L (17-59); Albumin 4.2 g/dl (3.5-5.0); Alkaline Phosphatase 97 U/L (38-126); Blood Urea Nitrogen 13 mg/dl (9-20); Calcium 9.4 mg/dl (8.4-10.2); Carbon Dioxide 24 mmol/L (22-30); Chloride 107 mmol/L (98-107); Glucose 107 mg/dl (70-99); Potassium 4.3 mmol/L (3.5-5.1); Sodium 139 mmol/L (135-145); Total Bilirubin 0.6 mg/dl (0.2-1.3); Total Protein 7.3 g/dl (6.3-8.2); eGFR > 60.00
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
[2024-03-25] MEDS: TORADOL 15 MG IV ×2 (08:05→14:49)
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
[2024-03-25] MEDS: ATIVAN 2 MG PO (14:49)
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
[2024-03-25] MEDS: PERCOCET 5/325 1 TABLET PO (19:51)
[2024-03-25] MEDS: HEPARIN 5000 UNITS SC (19:51)
[2024-03-25] MEDS: ATIVAN 0.5 MG PO (22:26)
[2024-03-25] MEDS: MELATONIN 6 MG PO (22:26)
[2024-03-26] MEDS: PERCOCET 5/325 1 TABLET PO ×3 (00:03→09:39)
[2024-03-26] MEDS: NEURONTIN 100 MG PO (01:41)
[2024-03-26 07:00] VITALS: BP 102/72
[2024-03-26 07:33] LABS: Hematocrit 32.4 % (39.0-52.0); Hemoglobin 9.4 g/dL (13.0-18.0); Mean Corpuscular Hgb 21.4 pg (27.0-31.0); Mean Corpuscular Volume 73.6 fL (80.0-94.0); Mean Platelet Volume 9.4 fL (7.4-10.4); Platelet Count 478 10^3/uL (130-400); Red Cell Dist. Width 17.2 % (11.5-14.5); White Blood Cell Count 8.6 10^3/uL (4.8-10.8)
[2024-03-26 08:03] LABS: ALT (SGPT) < 10 U/L (0-50); AST (SGOT) 13 U/L (17-59); Alkaline Phosphatase 85 U/L (38-126); Blood Urea Nitrogen 20 mg/dl (9-20); Calcium 9.4 mg/dl (8.4-10.2); Carbon Dioxide 27 mmol/L (22-30); Chloride 106 mmol/L (98-107); Estimated Creatinine Clearance > 125 ml/min; Glucose 89 mg/dl (70-99); Potassium 4.3 mmol/L (3.5-5.1); Sodium 139 mmol/L (135-145); Total Bilirubin 0.4 mg/dl (0.2-1.3); Total Protein 7.2 g/dl (6.3-8.2); eGFR > 60.00
[2024-03-26] MEDS: HEPARIN 5000 UNITS SC (08:39)
[2024-03-26] MEDS: PROZAC 20 MG PO (08:39)
[2024-03-26] MEDS: NICODERM TRANSDERMAL 14 MG TRANSDERM (08:39)
--- NOTE | 2024-03-26 10:37 | W.PN.ID1 ---
Date of Service
Date of Service: March 26, 2024
Assessment / Plan
Likely Developing fistula of the right plantar heel vs deep skin/soft tissue injury
Suspected Chronic Osteomyelitis of the RLE calcaneous/cuboid
Unstable hardwear in the ankle
- Xray 3 view of the foot - likely osteomyelitis
- attempt to arrange bone biopsy here with IR
-
- follow clinically
Vital Signs / Physical Exam
Vital Signs
Vital Signs
Temp Pulse Resp BP Pulse Ox
97.9 F 79 16 102/72 98
03/26/24 07:00 03/26/24 07:00 03/26/24 07:00 03/26/24 07:00 03/26/24 07:00
Objective Data
Lab Data
Lab Results
03/26/24 06:38
03/26/24 06:38
Estimated Creat Clear > 125 ml/min 03/26/24 06:38
Lactic Acid 0.8 mmol/L (0.7-2.0) 03/25/24 03:35
Total Bilirubin 0.4 mg/dl (0.2-1.3) 03/26/24 06:38
AST 13 U/L (17-59) L 03/26/24 06:38
ALT < 10 U/L (0-50) 03/26/24 06:38
Alkaline Phosphatase 85 U/L (38-126) 03/26/24 06:38
Most recent labs reviewed.
Micro Results:
03/26/24 00:07 MRSA Screen - Pending
Nose
03/25/24 11:08 Blood Culture - Pending
Blood/Venous
03/25/24 11:08 Blood Culture - Pending
Blood/Venous
[2024-03-26 12:06] LABS: Erythrocyte Sed Rate 48 mm/hour (0-20)
--- NOTE | 2024-03-26 12:41 | PTCARENOTE ---
Pt signed out AMA per patient and mothers request. Dr. Swain talked to patient and mother and signed off on paperwork. patient left stable in wheelchair with mother. one of our staff members took patient out for d/c.
--- NOTE | 2024-03-26 14:14 | W.PN.HOSP.TC ---
Today's Communication/Plan
-
to leave AMA
Assessment / Plan
Assessment / Plan
Acute osteomyelitis of rt foot
unstable hardware
hx of leg trama 2016
Schizoaffective disorder by history
P: reviewed situation with pt's mother, Dr. Eliza Gaona. She has decided to sign pt out AMA and transport pt to [facility] to get him evaluated there. Form signed and she left with pt
Full code
see dictated note
Anticipated Discharge: Today
Subjective/Interval History
-
Date of Service: March 26, 2024
Spoke to mother over phone yesterday and in person in room today
Objective Data
-
Labs:
Laboratory Results
03/26/24
06:38
WBC 8.6
Hgb 9.4 L
Hct 32.4 L
Plt Count 478 H
Sodium 139
Potassium 4.3
Chloride 106
Carbon Dioxide 27
BUN 20
Creatinine 0.8
Glucose 89
Calcium 9.4
Total Bilirubin 0.4
AST 13 L
ALT < 10
Alkaline Phosphatase 85
Vital Signs:
Vital Signs
Temp Pulse Resp BP Pulse Ox
97.9 F 79 16 102/72 98
03/26/24 07:00 03/26/24 07:00 03/26/24 07:00 03/26/24 07:00 03/26/24 07:00
I&O
03/25/24 03/26/24 03/27/24
06:59 06:59 06:59
Output Total 200 / 200
Balance -200 / -200
Review of Systems
-
History Source: Patient, Family and Physician (reviewed with Dr. Jaramillo)
Constitutional: Denies Fever
EENT: Reports No Symptoms Reported
Respiratory: Reports No Symptoms
Cardiac: Reports No Symptoms
Genitourinary: Reports No Symptoms
Musculoskeletal: Reports Joint Pain
Physical Exam
-
General: Well Developed, Well Nourished and No Apparent Distress
HEENT: Normocephalic, Atraumatic and Moist Mucous Membranes
Respiratory: Clear to Auscultation; Negative Wheezes, Rales or Rhonchi
Cardiac: Regular Rhythm and S1/S2
GI: Soft, Nontender and Nondistended
Musculoskeletal: No Clubbing, No Cyanosis, No Edema and Other ((bilateral legs with evidence of previous surgery, with heel wound covered), extensive evidence of prior surgery)
--- NOTE | 2024-03-26 14:27 | W.DS.TRANS ---
DC Summary - Actuary
-
Discharge Instructions:
Discharge Diagnosis/Procedures osteomyelitis
Diet Regular
Activity With assistance
Driving Restrictions No driving
Bathing Restrictions keep wound dry
Instructions:
Stand-Alone Forms:
Changes to Home Medications: No
Discharge Medications:
DC Medications w/original date entered in [employer]
meloxicam 15 mg tablet 15 mg PO DAILY 12/20/23
cariprazine 1.5 mg capsule (Vraylar) 1.5 mg PO DAILY 01/11/24
melatonin 5 mg tablet 6 mg PO HS 01/11/24
Medical Marijuana 2 inh inhalation Q8HPRN PRN anxiety-mild pain 03/25/24
clonidine HCl 0.1 mg tablet,extended release,12 hr 0.1 mg PO HS 03/25/24
fluoxetine 20 mg capsule (Prozac) 20 mg PO DAILY 03/25/24
lorazepam 0.5 mg tablet 0.5 mg PO DAILYPRN PRN anxiety 03/25/24
Home Medication Changes
Pending Results: No
--- NOTE | 2024-03-26 14:36 | CM ---
Chart reviewed and patient left AMA today, no further manager rn case needs.
Plan; Patient left AMA.
== END 2024-03-26 12:22 | disposition left against medical advice (07) | DRG 540 ==
LOC: 4 WEST ACU 16:39
PROVIDERS: Emergency Medicine; ADMITTING PHYSICIAN Internal Medicine; CONSULT PHYSICIAN Student in an Organized Health Care Education/Training Program; EMERGENCY PHYSICIAN Emergency Medicine; FAMILY PHYSICIAN Family Medicine
DX: M86.171 Other acute osteomyelitis, right ankle and foot (principal); T84.84XA Pain due to internal orthopedic prosthetic devices, implants and grafts, initial encounter; F25.9 Schizoaffective disorder, unspecified; Y79.8 Miscellaneous orthopedic devices associated with adverse incidents, not elsewhere classified
CPT/HCPCS: 73590; 73630; 80053; 83605; 85025; 85027; 85652; 86140; 87040; 87070; 93971; 96374; 99285; 99406

== ENCOUNTER 2024-05-20 12:46 | Emergency (ER) | payer OTHER, SELFPAY ==
[2024-05-20 12:49] VITALS: BP 117/82
[2024-05-20 13:21] LABS: % Basophils 0.3 % (0-2); % Eosinophils 1.8 % (0-6); % Immature Granulocytes 0.5 % (0-0.5); % Lymphocytes 22.8 % (20.5-51.1); % Monocytes 6.3 % (1.7-9.3); % Neutrophils 68.3 % (42.2-75.2); Absolute Eosinophils 0.2 10^3/uL (0-0.7); Absolute Monocytes 0.6 10^3/uL (0.1-0.6); Hematocrit 34.4 % (39.0-52.0); Hemoglobin 10.8 g/dL (13.0-18.0); Mean Corp Hgb Conc. 31.4 g/dL (33.0-37.0); Mean Corpuscular Hgb 22.5 pg (27.0-31.0); Mean Corpuscular Volume 71.5 fL (80.0-94.0); Mean Platelet Volume 9.1 fL (7.4-10.4); Nucleated Red Blood Cells % 0 % (-); Platelet Count 459 10^3/uL (130-400); Red Blood Cell Count 4.81 10^6/uL (4.70-6.10); Red Cell Dist. Width 21.3 % (11.5-14.5); White Blood Cell Count 8.8 10^3/uL (4.8-10.8)
[2024-05-20 13:22] LABS: ALT (SGPT) 11 U/L (0-50); AST (SGOT) 19 U/L (17-59); Albumin 4.5 g/dl (3.5-5.0); Alkaline Phosphatase 90 U/L (38-126); Blood Urea Nitrogen 18 mg/dl (9-20); Calcium 9.7 mg/dl (8.4-10.2); Carbon Dioxide 23 mmol/L (22-30); Chloride 107 mmol/L (98-107); Glucose 101 mg/dl (70-99); Potassium 4.3 mmol/L (3.5-5.1); Sodium 139 mmol/L (135-145); Total Bilirubin 0.5 mg/dl (0.2-1.3); Total Protein 7.5 g/dl (6.3-8.2); eGFR > 60.00
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
[2024-05-20 14:25] VITALS: BMI 23.1
== END 2024-05-20 15:27 | disposition home or self-care (01) ==
LOC: EMR 12:46
PROVIDERS: Emergency Medicine; EMERGENCY PHYSICIAN Emergency Medicine
DX: F32.A Depression, unspecified (principal); S91.301A Unspecified open wound, right foot, initial encounter; X58.XXXA Exposure to other specified factors, initial encounter; F20.9 Schizophrenia, unspecified
CPT/HCPCS: 99283; 80053; 85025

== ENCOUNTER 2024-05-26 18:41 | Emergency (ER) | payer OTHER, SELFPAY ==
[2024-05-26 18:55] VITALS: BP 123/85
[2024-05-26] MEDS: ATIVAN 2 MG PO (20:18)
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
== END 2024-05-26 20:47 | disposition home or self-care (01) ==
LOC: EMR 18:41
PROVIDERS: EMERGENCY PHYSICIAN Emergency Medicine
DX: R45.6 Violent behavior (principal); Z13.39 Encounter for screening examination for other mental health and behavioral disorders; R03.0 Elevated blood-pressure reading, without diagnosis of hypertension
CPT/HCPCS: 99283

== ENCOUNTER 2024-05-27 17:16 | Emergency (ER) | payer OTHER, SELFPAY ==
[2024-05-27 17:38] VITALS: BP 115/77
[2024-05-27] MEDS: NICORETTE 4 MG PO (17:39)
[2024-05-27 17:46] LABS: % Basophils 0.4 % (0-2); % Eosinophils 4.2 % (0-6); % Immature Granulocytes 0.3 % (0-0.5); % Lymphocytes 31.6 % (20.5-51.1); % Monocytes 8.5 % (1.7-9.3); Absolute Eosinophils 0.4 10^3/uL (0-0.7); Absolute Monocytes 0.8 10^3/uL (0.1-0.6); Absolute Neutrophils 5.2 10^3/uL (1.4-6.5); Hematocrit 33.2 % (39.0-52.0); Hemoglobin 10.7 g/dL (13.0-18.0); Mean Corp Hgb Conc. 32.2 g/dL (33.0-37.0); Mean Corpuscular Hgb 22.8 pg (27.0-31.0); Mean Corpuscular Volume 70.8 fL (80.0-94.0); Mean Platelet Volume 9.1 fL (7.4-10.4); Nucleated Red Blood Cells % 0 % (-); Platelet Count 435 10^3/uL (130-400); Red Blood Cell Count 4.69 10^6/uL (4.70-6.10); Red Cell Dist. Width 21.1 % (11.5-14.5); White Blood Cell Count 9.4 10^3/uL (4.8-10.8)
[2024-05-27 18:03] LABS: Chloride 105 mmol/L (98-107); Potassium 4.5 mmol/L (3.5-5.1); Sodium 141 mmol/L (135-145)
[2024-05-27 18:06] LABS: ALT (SGPT) 10 U/L (0-50); AST (SGOT) 17 U/L (17-59); Acetaminophen < 10 ug/ml (10-30); Albumin 4.4 g/dl (3.5-5.0); Alkaline Phosphatase 93 U/L (38-126); Blood Urea Nitrogen 19 mg/dl (9-20); Calcium 9.8 mg/dl (8.4-10.2); Carbon Dioxide 25 mmol/L (22-30); Glucose 94 mg/dl (70-99); Salicylate < 1.0 mg/dl (2.0-20.0); Total Bilirubin 0.4 mg/dl (0.2-1.3); Total Protein 7.2 g/dl (6.3-8.2); eGFR > 60.00
[2024-05-27 18:13] LABS: Alcohol None Detected
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
[2024-05-27] MEDS: NICODERM TRANSDERMAL 21 MG TRANSDERM (18:40)
[2024-05-27 18:42] LABS: Amphetamines Negative (Negative); Barbiturates Negative (Negative); Benzodiazepines Positive (Negative); Buprenorphine Negative (Negative); Cocaine Negative (Negative); Marijuana Positive (Negative); Methadone Negative (Negative); Methamphetamines Negative (Negative); Opiates Negative (Negative); Phencyclidine Negative (Negative); Tricyclic Antidepressants Negative (Negative)
[2024-05-27 19:06] LABS: Fentanyl, Urine Negative (Negative)
[2024-05-27] MEDS: SAPHRIS 5 MG SL (19:20)
[2024-05-27] MEDS: HALDOL 5 MG IM (19:35)
[2024-05-28 06:27] VITALS: BP 109/70
[2024-05-28] MEDS: NICORETTE 4 MG PO (10:17)
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
[2024-05-28] MEDS: ATIVAN 2 MG IM (11:04)
[2024-05-28] MEDS: HALDOL 5 MG IM (11:04)
== END 2024-05-28 12:01 ==
LOC: EMR 17:16
PROVIDERS: EMERGENCY PHYSICIAN Student in an Organized Health Care Education/Training Program
DX: R45.851 Suicidal ideations (principal); F41.8 Other specified anxiety disorders; F20.9 Schizophrenia, unspecified; I10 Essential (primary) hypertension; E11.9 Type 2 diabetes mellitus without complications; F17.200 Nicotine dependence, unspecified, uncomplicated; Z65.3 Problems related to other legal circumstances
CPT/HCPCS: 99282; 96372; 80053; 80143; 80179; 80306; 80307; 82077; 85025

== ENCOUNTER 2024-08-18 12:23 | Emergency (ER) | payer OTHER, SELFPAY ==
[2024-08-18 12:27] VITALS: BP 119/64
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
[2024-08-18 13:31] VITALS: BMI 23.0
[2024-08-18 13:36] VITALS: BP 131/78
--- NOTE | 2024-08-18 13:36 | EDRN ---
Dr. Diallo in room w/ pt.
--- NOTE | 2024-08-18 13:40 | EDRN ---
Pt on stretcher and speaks w/ slurred speech. Pt states he has pain in his R lower leg. Pt somnolent and drowsy appearing w/ slow speech noted. Pt complaining of smell in BR.
[2024-08-18] MEDS: ROXICODONE 5 MG PO (13:42)
== END 2024-08-18 14:20 | disposition home or self-care (01) ==
LOC: EMR 12:23
PROVIDERS: EMERGENCY PHYSICIAN Emergency Medicine
DX: G89.18 Other acute postprocedural pain (principal); M79.604 Pain in right leg; F41.8 Other specified anxiety disorders; F20.9 Schizophrenia, unspecified; F17.200 Nicotine dependence, unspecified, uncomplicated
CPT/HCPCS: 99282

== ENCOUNTER 2024-09-06 11:06 | Emergency (ER) | payer OTHER, SELFPAY ==
[2024-09-06 11:12] VITALS: BP 114/72
--- NOTE | 2024-09-06 13:27 | EDRN ---
Pt is here for clogged PICC line. IV VAT RN paged at this time.
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
[2024-09-06 13:50] VITALS: BMI 23.0
--- NOTE | 2024-09-06 15:10 | EDRN ---
Pt looking down HW at me as if wanting something. THis RN told pt that she will be down when finished w/ present pt.
--- NOTE | 2024-09-06 15:20 | EDRN ---
Pt asked what he needed and he was sitting on top of mother who was in a recliner. Pt said he wanted xanax and pain medication. Pt said R leg pain 10/10 at this time.
[2024-09-06] MEDS: TYLENOL 1000 MG PO (15:24)
[2024-09-06] MEDS: ATIVAN 0.5 MG PO (15:24)
--- NOTE | 2024-09-06 15:24 | EDRN ---
This RN went down to administer ativan and tylenol as ordered by PA. Pt was attempting to walk out back ED door w/ his walker. Pt told by this RN that his medication is ready and to return to his room. Pt returned to his room at this time.
--- NOTE | 2024-09-06 15:27 | EDRN ---
Pharmacy called to send cathflow to open PICC at this time.
--- NOTE | 2024-09-06 15:45 | EDRN ---
IV VAT RN was able to withdraw blood and flush PICC line upon arrival w/out the necessity of instilling the cathflow.
--- NOTE | 2024-09-06 15:45 | EDRN ---
IV VAT RN in room instilling cathflow at this time.
--- NOTE | 2024-09-06 15:50 | EDRN ---
At 15:50 Pt in HW attempting to leave.
--- NOTE | 2024-09-06 15:55 | EDRN ---
Pt left ER on walker w/ mother still in ER at this time.
--- NOTE | 2024-09-06 16:05 | EDRN ---
Discharge plan reviewed w/ mother who left to catch up w/ her son.
[2024-09-06 16:10] VITALS: BMI 23.0
== END 2024-09-06 16:05 | disposition home or self-care (01) ==
LOC: EMR 11:06
PROVIDERS: EMERGENCY PHYSICIAN Emergency Medicine; FAMILY PHYSICIAN Family Medicine
DX: T82.594A Other mechanical complication of infusion catheter, initial encounter (principal); Y84.8 Other medical procedures as the cause of abnormal reaction of the patient, or of later complication, without mention of misadventure at the time of the procedure; F17.200 Nicotine dependence, unspecified, uncomplicated; M86.9 Osteomyelitis, unspecified; R45.1 Restlessness and agitation
CPT/HCPCS: 96523; 99283; 71046; J2997